=== PATIENT | male | born 1965 | race Native Hawaiian/Other Pacific Islander ===

== ENCOUNTER 2017-10-31 00:46 | Inpatient (IN) | payer MEDICAID, OTHER ==
[2017-10-31] MEDS ORDERED: Sodium Chloride 0.9% 1,000 ML IV ONE ×2 (01:37→06:01)
[2017-10-31] MEDS ORDERED: Sodium Chloride 0.9% 1,000 ML ONE (01:55)
[2017-10-31 02:01] LABS: BASO # 0.1 K/uL (0.0-0.2); BASO % 0.7 % (0.0-2.0); EOS % 0.2 % (0.0-4.0); HEMOGLOBIN 9.2 g/dL (12.0-18.0); LYMPH # 1.7 K/uL (1.0-4.3); LYMPH % 15.8 % (20.0-40.0); MEAN CORPUSCULAR HEMOGLOBIN 29.4 pg (27.0-31.0); MEAN PLATELET VOLUME 6.1 fL (7.2-11.7); MONO # 0.6 K/uL (0.0-0.8); MONO % 5.4 % (0.0-10.0); NEUT # 8.3 K/uL (1.8-7.0); NEUT % 77.9 % (50.0-75.0); RBC 3.13 Mil/uL (4.40-5.90); RED CELL DISTRIBUTION WIDTH 12.6 % (11.5-14.5); WHITE BLOOD COUNT 10.6 K/uL (4.8-10.8)
[2017-10-31 02:12] LABS: INR 1.1; PROTHROMBIN TIME 12.1 SECONDS (9.7-12.2)
--- NOTE | 2017-10-31 02:26 | C.PDOC ---
History Of Present Illness 56 y/o male presents with abdominal pain and vomiting, ongoing for 1 week. Denies any diarrhea or fever. Of note, patient sustained insect bite a few days ago. Time Seen by Provider: 10/31/17 01:30 Chief Complaint (Nursing): Abdominal Pain History Per: Patient History/Exam Limitations: no limitations Onset/Duration Of Symptoms: Days (x 1 week) Current Symptoms Are (Timing): Still Present Past Medical History Reviewed: Historical Data, Nursing Documentation, Vital Signs Vital Signs: Last Vital Signs Temp 98.6 F 10/31/17 00:57 Pulse 120 H 10/31/17 00:57 Resp 20 10/31/17 00:57 BP 109/70 10/31/17 00:57 Pulse Ox 97 10/31/17 03:24 - Medical History PMH: Diabetes Surgical History: No Surg Hx Family History: States: No Known Family Hx - Social History Hx Tobacco Use: Yes Hx Alcohol Use: No Hx Substance Use: No - Immunization History Hx Tetanus Toxoid Vaccination: No Hx Influenza Vaccination: No Hx Pneumococcal Vaccination: No Review Of Systems Except As Marked, All Systems Reviewed And Found Negative. Constitutional: Negative for: Fever Gastrointestinal: Positive for: Nausea, Vomiting, Abdominal Pain. Negative for : Diarrhea Genitourinary: Negative for: Dysuria Physical Exam - Physical Exam Appears: In Acute Distress (mild painful distress) Skin: Normal Color, Warm, Dry Head: Atraumatic, Normacephalic Eye(s): bilateral: Normal Inspection, PERRL, EOMI Oral Mucosa: Moist Neck: Normal ROM, Supple Chest: Symmetrical Cardiovascular: Rhythm Regular Respiratory: Normal Breath Sounds, No Accessory Muscle Use Gastrointestinal/Abdominal: Soft, Tenderness (to epigastrium and upper quadrants ), Other (Small laceration noted to right abdominal wall area, infected, from insect bite 3 days ago) Back: Normal Inspection, No Vertebral Tenderness Extremity: Bilateral: Atraumatic, Normal ROM Neurological/Psych: Oriented x3, Normal Speech ED Course And Treatment - Laboratory Results Result Diagrams: 10/31/17 01:55 10/31/17 01:55 ECG: Interpreted By Me, Viewed By Me ECG Rhythm: Sinus Rhythm, R BBB ECG Interpretation: No Acute Changes Interpretation Of ECG: NSR, IRBBB, No acute changes Rate From EC O2 Sat by Pulse Oximetry: 97 (RA) Pulse Ox Interpretation: Normal Medical Decision Making Medical Decision Makin:37 Ordered blood work including lipase, EKG, and chest x-ray. Patient given Protonix injection and started on IV fluids. NG tube inserted, pt aspirated coughing on NG tube Disposition Discussed With Dr.: Maurice Ahumada Doctor Will See Patient In The: Hospital Counseled Patient/Family Regarding: Diagnosis - Disposition Disposition: HOSPITALIZED Disposition Time: 03:33 Condition: STABLE Forms: [facility] (Polish) - POA Present On Arrival: None - Clinical Impression Clinical Impression: GI bleed - Scribe Statement The provider has reviewed the documentation as recorded by the Scribe (Berenice Jennings) All medical record entries made by the Scribe were at my direction and personally dictated by me. I have reviewed the chart and agree that the record accurately reflects my personal performance of the history, physical exam, medical decision making, and the department course for this patient. I have also personally directed, reviewed, and agree with the discharge instructions and disposition.
[2017-10-31 02:36] LABS: ALB/GLOB RATIO 1.1 (1.0-2.1); ALBUMIN 3.5 g/dL (3.5-5.0); ALT/SGPT 58 U/L (21-72); AST/SGOT 22 U/L (17-59); BLOOD UREA NITROGEN 16 mg/dL (9-20); CALCIUM 8.3 mg/dl (8.6-10.4); GFR AFRICAN-AMERICAN > 60; GFR NON-AFRICAN AMERICAN > 60; LIPASE 33 U/L (23-300)
--- NOTE | 2017-10-31 04:39 | CP.PCM.HP ---
<Maurice Ahumada P - Last Filed: 10/31/17 06:44> Meds Allergies/Adverse Reactions: Allergies Allergy/AdvReac Type Severity Reaction Status Date / Time No Known Allergies Allergy Verified 10/31/17 06:56 Results - Vital Signs Recent Vital Signs: Last Vital Signs Temp 98.6 F 10/31/17 00:57 Pulse 108 H 10/31/17 06:07 Resp 20 10/31/17 06:07 BP 123/80 10/31/17 06:07 Pulse Ox 97 10/31/17 06:07 - Labs Result Diagrams: 10/31/17 01:55 10/31/17 01:55 Labs: Laboratory Results - last 24 hr 10/31/17 10/31/17 10/31/17 01:55 01:55 01:55 WBC 10.6 RBC 3.13 L Hgb 9.2 L Hct 26.3 L MCV 84.0 MCH 29.4 MCHC 35.0 RDW 12.6 Plt Count 518 H MPV 6.1 L Neut % (Auto) 77.9 H Lymph % (Auto) 15.8 L Milam % (Auto) 5.4 Eos % (Auto) 0.2 Baso % (Auto) 0.7 Neut # (Auto) 8.3 H Lymph # (Auto) 1.7 Milam # (Auto) 0.6 Eos # (Auto) 0.0 Baso # (Auto) 0.1 PT 12.1 INR 1.1 APTT 35 H Sodium 136 Potassium 2.5 L* Chloride 87 L Carbon Dioxide 36 H Anion Gap 15 BUN 16 Creatinine 0.6 L Est GFR ( Amer) > 60 Est GFR (Non-Af Amer) > 60 Random Glucose 172 H Calcium 8.3 L Total Bilirubin 0.3 AST 22 ALT 58 Alkaline Phosphatase 66 Total Protein 6.5 Albumin 3.5 Globulin 3.0 Albumin/Globulin Ratio 1.1 Lipase 33 Blood Type Blood Type Confirm Antibody Screen 10/31/17 01:55 WBC RBC Hgb Hct MCV MCH MCHC RDW Plt Count MPV Neut % (Auto) Lymph % (Auto) Milam % (Auto) Eos % (Auto) Baso % (Auto) Neut # (Auto) Lymph # (Auto) Milam # (Auto) Eos # (Auto) Baso # (Auto) PT INR APTT Sodium Potassium Chloride Carbon Dioxide Anion Gap BUN Creatinine Est GFR ( Amer) Est GFR (Non-Af Amer) Random Glucose Calcium Total Bilirubin AST ALT Alkaline Phosphatase Total Protein Albumin Globulin Albumin/Globulin Ratio Lipase Blood Type A POSITIVE Blood Type Confirm A POSITIVE Antibody Screen Negative Attending/Attestation - Attestation I have personally seen and examined this patient.: Yes I have fully participated in the care of the patient.: Yes I have reviewed all pertinent clinical information: Yes Notes (Text): Assessment * UGI bleeding as vomiting and bloody diarrhea, maroon mixed with dark blood on ng, no bright red, with consistent posture related tachycardia suggesting lowered intravascular volume, patient has been using NSAIDS intermittently for back pain and skin infection * Hypokalemia will check mag, probably form poor intake, not on diuretic * Chronic back pain, T12 compression fracture * Skin infection abscess on the abdominal wall * DM on OHA Plan * PPI drip * PRVC as exam consistent with intravascular volume depletion * IV KCl replacement, check mag. * GI consult * Surg consult for I&D * Carmeno, jazzminesyn * SCD, accuchecks * ICU admit till no recurrence for 24 hrs, and volume stabilized. * See orders for detail. <Raúl Fagan S - Last Filed: 10/31/17 07:09> History of Present Illness - History of Present Illness History of Present Illness: This is a 51 year old gentleman who is presenting with c/o LUQ abdominal pain for several weeks, insect bite x3 days on his abdomen and hematemasis/ hematochezia x 1 day. He is accompanied by his son who explains that the patient has been have LUQ abdominal pain for several weeks. He saw his PMD Dr. Chairez for this and was told that it was neuropathic pain associated with his compression fracture. He did not pay any more mind to this and continued to take pain medication at home for this pain. Then three days ago he noticed an insect bite on the right side of his abdomen. The bite has been getting progressively red and painful. He has not noted any drainage. Then one day ago he began to develop fevers and chills. Subsequently the patient began to vomit gross blood and pass gross blood through the stool. A total of 4 episodes of each were reported. PMD: Dr. Chairez Pmhx: DM, compression fracture of the vertebra Psurghx: none Meds: glimeperide 2mg PO BID, metformin 1g PO bid, percocet 1T PO QID, trazodone prn insomnia, Tizanidine 2mg PO TID, gabapentin 300mg PO TID allergies: NKDA fam hx: denied social: 5 cigarettes/day x10 years, drinks sparingly, no drugs Present on Admission - Present on Admission Any Indicators Present on Admission: No Review of Systems - Constitutional Constitutional: absent: Chills, Fever - EENT Eyes: absent: Blurred Vision, Change in Vision Ears: Dizziness - Cardiovascular Cardiovascular: absent: Chest Pain, Diaphoresis, Dyspnea, Syncope - Respiratory Respiratory: absent: Cough, Dyspnea - Gastrointestinal Gastrointestinal: Hematemesis, Hematochezia, Melena, Vomiting - Genitourinary Genitourinary: absent: Dysuria - Musculoskeletal Musculoskeletal: Back Pain (hx of compression fx at t12) - Integumentary Integumentary: Other (insect bite on abdomen) - Neurological Neurological: absent: Syncope, Tingling, Vertigo, Weakness Past Patient History - Past Social History Smoking Status: Heavy Smoker > 10 Cigarettes Daily - ENDOCRINE/METABOLIC Hx Diabetes Mellitus Type 2: Yes - PSYCHIATRIC Hx Substance Use: No - SURGICAL HISTORY Hx Surgeries: No - ANESTHESIA Hx Anesthesia: No Physical Exam - Head Exam Head Exam: ATRAUMATIC, NORMOCEPHALIC - Eye Exam Eye Exam: EOMI, PERRL - ENT Exam ENT Exam: Mucous Membranes Moist - Respiratory Exam Respiratory Exam: Clear to Auscultation Bilateral, NORMAL BREATHING PATTERN. absent: Rales, Rhonchi, Wheezes - Cardiovascular Exam Cardiovascular Exam: +S1, +S2 - GI/Abdominal Exam GI & Abdominal Exam: Normal Bowel Sounds, Soft, Tenderness (tender only on right near skin lesion). absent: Guarding - Extremities Exam Extremities exam: Positive for: calf tenderness. Negative for: pedal edema - Neurological Exam Neurological exam: Alert, Oriented x3 - Psychiatric Exam Psychiatric exam: Normal Affect, Normal Mood - Skin Skin Exam: Dry, Warm Results - Vital Signs Recent Vital Signs: Last Vital Signs Temp 98.6 F 10/31/17 00:57 Pulse 120 H 10/31/17 00:57 Resp 20 10/31/17 00:57 BP 109/70 10/31/17 00:57 Pulse Ox 97 10/31/17 03:34 - Labs Result Diagrams: 10/31/17 01:55 10/31/17 01:55 Labs: Laboratory Results - last 24 hr 10/31/17 10/31/17 10/31/17 01:55 01:55 01:55 WBC 10.6 RBC 3.13 L Hgb 9.2 L Hct 26.3 L MCV 84.0 MCH 29.4 MCHC 35.0 RDW 12.6 Plt Count 518 H MPV 6.1 L Neut % (Auto) 77.9 H Lymph % (Auto) 15.8 L Milam % (Auto) 5.4 Eos % (Auto) 0.2 Baso % (Auto) 0.7 Neut # (Auto) 8.3 H Lymph # (Auto) 1.7 Milam # (Auto) 0.6 Eos # (Auto) 0.0 Baso # (Auto) 0.1 PT 12.1 INR 1.1 APTT 35 H Sodium 136 Potassium 2.5 L* Chloride 87 L Carbon Dioxide 36 H Anion Gap 15 BUN 16 Creatinine 0.6 L Est GFR ( Amer) > 60 Est GFR (Non-Af Amer) > 60 Random Glucose 172 H Calcium 8.3 L Total Bilirubin 0.3 AST 22 ALT 58 Alkaline Phosphatase 66 Total Protein 6.5 Albumin 3.5 Globulin 3.0 Albumin/Globulin Ratio 1.1 Lipase 33 Blood Type Blood Type Confirm Antibody Screen 10/31/17 01:55 WBC RBC Hgb Hct MCV MCH MCHC RDW Plt Count MPV Neut % (Auto) Lymph % (Auto) Milam % (Auto) Eos % (Auto) Baso % (Auto) Neut # (Auto) Lymph # (Auto) Milam # (Auto) Eos # (Auto) Baso # (Auto) PT INR APTT Sodium Potassium Chloride Carbon Dioxide Anion Gap BUN Creatinine Est GFR ( Amer) Est GFR (Non-Af Amer) Random Glucose Calcium Total Bilirubin AST ALT Alkaline Phosphatase Total Protein Albumin Globulin Albumin/Globulin Ratio Lipase Blood Type A POSITIVE Blood Type Confirm A POSITIVE Antibody Screen Negative Assessment & Plan - Assessment and Plan (Free Text) Plan: GIB Admission to ICU NGT placed in ED- maintain however keep suction off GI consult placed to Dr. Maricruz Knapp 1 unit PRBC Protonix ggt NS bolus Hypokalemia 2.5 on admission repleted follow up labs- replete as needed follow up mg Cellulitis with possible abscess Start vancomycin 1g IV q12 Start zosyn 3.375g IV q6hrs Surgery consult placed to Dr. Tai Diabetes Monitor finger sticks ACHS Start ISS if appropriate Hx of T12 compression fx Take oxycodon at home- assess need for pain medications prn PPX SCD Case discussed with Dr. Ahumada. Patient was discussed with ICU attending and accepted. Raúl Fagan D.O.
[2017-10-31] MEDS ORDERED: Piperacill/Tazo 2.25gm in Dex 2.25 GM/50 ML BAG IVPB SCH (06:15)
[2017-10-31] MEDS: Pantoprazole 80 MG in Sodium Chloride 0.9% 100 ML IVP SCH ×2 (06:38→15:30)
--- NOTE | 2017-10-31 07:52 | CP.PCM.PN ---
Subjective - Date & Time of Evaluation Date of Evaluation: 10/31/17 Time of Evaluation: 07:30 - Subjective Subjective: General surgery consult note for Dr. Remigio Maloney, PGY-1 Pt S & E at bedside. 51M w/PMH sig for DM consulted for right abdominal wall abscess x 3 days. Pt states that he got an insect bite that became progressively red/painful. No drainage. Admits to fevers, chills, hemetemesis, hematochezia. Originally admitted for GI bleed. PMH: DM, compression fxr of vertebra PSH: None All: NKDA SH: Admits to tobacco use 5 cigarettes daily x 10 yrs, rare ETOH use, denies illicit drugs. Objective - Vital Signs/Intake and Output Vital Signs (last 24 hours): Temp Pulse Resp BP Pulse Ox 98.2 F 105 H 18 125/74 99 10/31/17 06:43 10/31/17 06:43 10/31/17 06:43 10/31/17 06:43 10/31/17 06:43 - Medications Medications: Current Medications Sodium Chloride (Sodium Chloride 0.9%) 1,000 mls @ 100 mls/hr IV .Q10H ONE Stop: 10/31/17 11:36 Last Admin: 10/31/17 01:58 Dose: 100 mls/hr Pantoprazole Sodium 80 mg/ (Sodium Chloride) 100 mls @ 10 mls/hr IVP .Q10H DAVEY PRN Reason: 8 MG/HR Last Admin: 10/31/17 06:38 Dose: 10 mls/hr Potassium Chloride (Potassium Chloride 20 Meq/100 Ml) 20 meq in 100 mls @ 50 mls/hr IVPB ONCE ONE Stop: 10/31/17 08:01 Last Admin: 10/31/17 06:40 Dose: 50 mls/hr Vancomycin/Sodium Chloride (Vancomycin 1 Gm/Ns 200 Ml) 1 gm in 200 mls @ 166.7 mls/hr IVPB Q24H [facility] Stop: 11/05/17 07:01 Piperacillin Sod/Tazobactam Sod (Zosyn 3.375 Gm Iv Premix) 3.375 gm in 50 mls @ 100 mls/hr IVPB Q6H DAVEY - Labs Labs: 10/31/17 01:55 02/09/18 01:55 PT 12.1 SECONDS (9.7-12.2) 10/31/17 01:55 INR 1.1 10/31/17 01:55 APTT 35 SECONDS (21-34) H 10/31/17 01:55 - Constitutional Appears: Non-toxic, No Acute Distress - Head Exam Head Exam: ATRAUMATIC, NORMAL INSPECTION, NORMOCEPHALIC - Eye Exam Eye Exam: EOMI, Normal appearance - ENT Exam ENT Exam: Mucous Membranes Moist, Normal Exam - Neck Exam Neck Exam: Full ROM, Normal Inspection - Respiratory Exam Respiratory Exam: NORMAL BREATHING PATTERN - Cardiovascular Exam Cardiovascular Exam: Tachycardia, +S1, +S2 - GI/Abdominal Exam GI & Abdominal Exam: Soft, Tenderness (right abdominal wall). absent: Distended , Firm Additional comments: Right abdominal wall with erythematous lesion, approximately 3 x 4 cm, fluctuance at central aspect, induration, calor, tenderness - Extremities Exam Extremities Exam: Normal Inspection. absent: Pedal Edema - Neurological Exam Neurological Exam: Alert, Awake, CN II-XII Intact, Oriented x3 - Psychiatric Exam Psychiatric exam: Normal Affect, Normal Mood - Skin Skin Exam: Erythema (Right abdominal wall), Intact, Normal Color (excluding right abdominal wall abscess), Warm Assessment and Plan - Assessment and Plan (Free Text) Assessment: 51M w/abscess of Right abdominal wall Plan: ABx Pain control Warm compresses Plan to do bedside I & D Will obtain consent Further mgmt as per primary and ICU teams CASSI attending Amara, PGY-1
[2017-10-31] MEDS: Vancomycin 1 gm/NS 200 ml 1 GM/200 ML BAG IVPB SCH (08:00)
[2017-10-31] MEDS ORDERED: Potassium Chloride 20 mEq ER Tab PO SCH (08:30)
[2017-10-31] MEDS: Piperacill/Tazo 3.375gm in Dex 3.375 GM/50 ML BAG IVPB SCH ×3 (08:48→19:37)
[2017-10-31] MEDS ORDERED: Lidocaine 2% w Epi 1:100,000 Inj IJ ONE (09:00)
[2017-10-31] MEDS ORDERED: Lidocaine 1%/Epinephrine 1:100000 30 ml vial IJ ONE (09:00)
--- NOTE | 2017-10-31 09:06 | CP.PCM.CON ---
Addendum entered and electronically signed by Denzel Ivan DO 10/31/17 13:16 : Given hemoglobin on 6.7 on most recent CBC following IVF resuscitation, ongoing coffee ground fluid from NGT and history of hematemesis, hematochezia will perform emergent EGD at bedside in ICU shortly. Potassium repletion has been ongoing with patient receiving 60mEq thus far and another bag being hung presently. 1 unit PRBC being hung at this time. 2 units to be put on hold. Original Note: <Denzel Ivan - Last Filed: 10/31/17 09:07> History of Present Illness - History of Present Illness History of Present Illness: PGY5 GI Fellow Consult Note Patient is a 51yo [place] male with PMHx significant for DM, T12 compression fracture who presented to the ED last night with abdominal pain, nausea and vomiting. [employer] airplane tester [id number] assisted with translation. The patient has has gnawing epigastric abdominal pain for several years which he believed to be secondary to a spinal compression fracture which was diagnosed in 2015. He has had epidural spinal injections and more recently was taking prescription Percocet and OTC Tylenol to treat symptoms without much relief. Symptoms intensified over the past several weeks with pain becomming severe last night at around 9PM. At 10PM he developed nausea and vomited a cup of dark black emesis. He had two more similar episodes, developed bloody diarrhea and became dizzy which prompted his son to bring him to the hospital for further evaluation. In the ER, the patient had an NGT placed which was lavaged, producing dark coffee ground material. He has since been admitted to the ICU, with order for 1 unit PRBC transfusion pending and he was started on a Protonix gtt. Continues to complain of epigastric pain, though improved from prior. Separately, 4 days prior to admission he was bitten by an insect on the RLQ of his abdomen. He developed intense pruritus and notes that this area has become swollen, warm and erythematous over the subsequent days. He denies any fever, chills, purulent drainage. He has not traveled recently or used any antibiotics to treat this area. PMHx: See HPI PSHx: Discussed with patient and he denies any surgical history FHx: Discussed with patient and he denies any family history Social: +tobacco use 10+ years, social EtOH use (~every two weeks) Endo: No prior endoscopic evaluations PMD: Dr. Pelon Chairez 12 system ROS performed and negative except where stated above Past Patient History - Past Social History Smoking Status: Heavy Smoker > 10 Cigarettes Daily - ENDOCRINE/METABOLIC Hx Diabetes Mellitus Type 2: Yes - PSYCHIATRIC Hx Substance Use: No - SURGICAL HISTORY Hx Surgeries: No - ANESTHESIA Hx Anesthesia: No Meds Allergies/Adverse Reactions: Allergies Allergy/AdvReac Type Severity Reaction Status Date / Time No Known Allergies Allergy Verified 10/31/17 06:56 - Medications Medications: Current Medications Sodium Chloride (Sodium Chloride 0.9%) 1,000 mls @ 100 mls/hr IV .Q10H ONE Stop: 10/31/17 11:36 Last Admin: 10/31/17 01:58 Dose: 100 mls/hr Pantoprazole Sodium 80 mg/ (Sodium Chloride) 100 mls @ 10 mls/hr IVP .Q10H [facility] PRN Reason: 8 MG/HR Last Admin: 10/31/17 06:38 Dose: 10 mls/hr Vancomycin/Sodium Chloride (Vancomycin 1 Gm/Ns 200 Ml) 1 gm in 200 mls @ 166.7 mls/hr IVPB Q24H [facility] Stop: 11/05/17 07:01 Last Admin: 10/31/17 08:00 Dose: 166.7 mls/hr Piperacillin Sod/Tazobactam Sod (Zosyn 3.375 Gm Iv Premix) 3.375 gm in 50 mls @ 100 mls/hr IVPB Q6H [facility] Last Admin: 10/31/17 08:48 Dose: 100 mls/hr Acetaminophen (Ofirmev) 100 mls @ 100 mls/hr IV Q8H PRN PRN Reason: Pain, moderate (4-7) Stop: 11/01/17 09:01 Potassium Chloride (Potassium Chloride 20 Meq/100 Ml) 20 meq in 100 mls @ 100 mls/hr IVPB Q1H [facility] Stop: 10/31/17 09:59 Calcium Gluconate 2,000 mg/ (Sodium Chloride) 270 mls @ 67.5 mls/hr IVPB ONCE ONE PRN Reason: Per Protocol Stop: 10/31/17 13:59 Potassium Chloride (K-Dur 20 Meq Er Tab) 40 meq PO Q4H [facility] Stop: 02/09/18 12:31 Last Admin: 10/31/17 08:43 Dose: Not Given Physical Exam - Constitutional Appears: Non-toxic, No Acute Distress - Eye Exam Eye Exam: EOMI, PERRL - ENT Exam ENT Exam: Mucous Membranes Dry Additional comments: NGT in place, clamped with dark black gastric fluid inside tube - Respiratory Exam Respiratory Exam: Clear to Auscultation Bilateral. absent: Rales, Rhonchi, Wheezes - Cardiovascular Exam Cardiovascular Exam: Tachycardia, REGULAR RHYTHM, +S1, +S2 - GI/Abdominal Exam GI & Abdominal Exam: Normal Bowel Sounds, Soft, Tenderness (epigastric, LUQ). absent: Distended, Firm, Guarding, Rigid - Rectal Exam Rectal Exam: absent: Black Stool, Bloody Stool Additional comments: brown stool, small internal hemorrhoid, no external hemorrhoids - Extremities Exam Extremities exam: Positive for: normal inspection. Negative for: pedal edema - Neurological Exam Neurological exam: Alert, Oriented x3 - Psychiatric Exam Psychiatric exam: Normal Affect, Normal Mood - Skin Skin Exam: Dry, Warm Additional comments: 1.5inch cellulitic lesion in the RLQ, warm to touch with erythematous border; no drainage noted Results - Vital Signs Recent Vital Signs: Last Vital Signs Temp 98.2 F 10/31/17 06:43 Pulse 105 H 10/31/17 06:43 Resp 18 10/31/17 06:43 BP 125/74 10/31/17 06:43 Pulse Ox 99 10/31/17 06:43 - Labs Result Diagrams: 10/31/17 01:55 10/31/17 01:55 Labs: Laboratory Results - last 24 hr 10/31/17 10/31/17 10/31/17 01:55 01:55 01:55 WBC 10.6 RBC 3.13 L Hgb 9.2 L Hct 26.3 L MCV 84.0 MCH 29.4 MCHC 35.0 RDW 12.6 Plt Count 518 H MPV 6.1 L Neut % (Auto) 77.9 H Lymph % (Auto) 15.8 L Galax % (Auto) 5.4 Eos % (Auto) 0.2 Baso % (Auto) 0.7 Neut # (Auto) 8.3 H Lymph # (Auto) 1.7 [place] # (Auto) 0.6 Eos # (Auto) 0.0 Baso # (Auto) 0.1 PT 12.1 INR 1.1 APTT 35 H Sodium 136 Potassium 2.5 L* Chloride 87 L Carbon Dioxide 36 H Anion Gap 15 BUN 16 Creatinine 0.6 L Est GFR ( Amer) > 60 Est GFR (Non-Af Amer) > 60 Random Glucose 172 H Calcium 8.3 L Total Bilirubin 0.3 AST 22 ALT 58 Alkaline Phosphatase 66 Total Protein 6.5 Albumin 3.5 Globulin 3.0 Albumin/Globulin Ratio 1.1 Lipase 33 Blood Type Blood Type Confirm Antibody Screen 10/31/17 01:55 WBC RBC Hgb Hct MCV MCH MCHC RDW Plt Count MPV Neut % (Auto) Lymph % (Auto) Galax % (Auto) Eos % (Auto) Baso % (Auto) Neut # (Auto) Lymph # (Auto) Galax # (Auto) Eos # (Auto) Baso # (Auto) PT INR APTT Sodium Potassium Chloride Carbon Dioxide Anion Gap BUN Creatinine Est GFR ( Amer) Est GFR (Non-Af Amer) Random Glucose Calcium Total Bilirubin AST ALT Alkaline Phosphatase Total Protein Albumin Globulin Albumin/Globulin Ratio Lipase Blood Type A POSITIVE Blood Type Confirm A POSITIVE Antibody Screen Negative Assessment & Plan - Assessment and Plan (Free Text) Assessment: Patient is a 51yo [place] male with PMHx significant for DM, T12 compression fracture who presented to the ED last night with abdominal pain, nausea and vomiting. -Hematemesis -Anemia, suspect acute blood loss anemia -Cellulitis 2/2 insect bite on RLQ of abdomen -Hypokalemia -DM -T12 compression fracture Plan: -Maintain NPO -IVF resuscitation ongoing - currently NS@100cc/hr, s/p 2L IV bolus -Protonix gtt as ordered -Patient has adequate IV access -2 units PRBCs on hold, 1 unit transfusion pending -Unknown HGB baseline - attempted to reach patient's PCP to discuss but currently unavailable -Plan for EGD today - R/O ongoing UGIB, PUD, vascular lesion, malignancy; plan per findings -Surgery consulted for local care to cellulitic lesion - plan for I&D -Continue broad spectrum coverage for cellulitic lesion - Vancomycin and Zosyn -IV potassium running for hypokalemia -Patient is a known diabetic, would consider addition of hyperglycemic coverage - Date & Time Date: 10/31/17 Time: 07:30 <Honey Estrada MD - Last Filed: 10/31/17 21:06> Meds - Medications Medications: Current Medications Dextrose (Dextrose 50%) 0 ml IV STAT PRN; Protocol PRN Reason: Hypoglycemia Protocol Dextrose (Glutose 15) 0 gm PO ONCE PRN; Protocol PRN Reason: Hypoglycemia Protocol Docusate Sodium (Colace) 100 mg PO BID PRN PRN Reason: Constipation Glucagon (Glucagen Diagnostic Kit) 0 mg IM STAT PRN; Protocol PRN Reason: Hypoglycemia Protocol Pantoprazole Sodium 80 mg/ (Sodium Chloride) 100 mls @ 10 mls/hr IVP .Q10H [facility] PRN Reason: 8 MG/HR Last Admin: 10/31/17 15:30 Dose: 10 mls/hr Vancomycin/Sodium Chloride (Vancomycin 1 Gm/Ns 200 Ml) 1 gm in 200 mls @ 166.7 mls/hr IVPB Q24H [facility] Stop: 11/05/17 07:01 Last Admin: 10/31/17 08:00 Dose: 166.7 mls/hr Piperacillin Sod/Tazobactam Sod (Zosyn 3.375 Gm Iv Premix) 3.375 gm in 50 mls @ 100 mls/hr IVPB Q6H [facility] Last Admin: 10/31/17 19:37 Dose: 100 mls/hr Acetaminophen (Ofirmev) 100 mls @ 100 mls/hr IV Q8H PRN PRN Reason: Pain, moderate (4-7) Stop: 11/01/17 09:01 Dextrose (Dextrose 5% In Water 1000 Ml) 1,000 mls @ 0 mls/hr IV .Q0M PRN; Protocol; Per Protocol PRN Reason: Hypoglycemia Protocol Dextrose/Sodium Chloride (Dextrose 5%/0.9% Ns 1000 Ml) 1,000 mls @ 100 mls/hr IV .Q10H [facility] Last Admin: 10/31/17 17:00 Dose: 100 mls/hr Midazolam HCl 100 mg/ Dextrose 100 mls @ 1.17 mls/hr IV .Q24H [facility]; 0.02 MG/KG/ HR PRN Reason: Protocol Last Titration: 10/31/17 18:10 Dose: 0.08 mg/kg/hr, 5 mls/hr Fentanyl Citrate 2,500 mcg/ (Sodium Chloride) 250 mls @ 11.79 mls/hr IV .[id number] [facility]; 2 MCG/KG/HR PRN Reason: Protocol Last Admin: 10/31/17 19:15 Dose: 2 mcg/kg/hr, 11.79 mls/hr Insulin Human Regular (Novolin R) 0 unit SC Q6H [facility] PRN Reason: Protocol Last Admin: 10/31/17 18:12 Dose: Not Given Morphine Sulfate (Morphine) 2 mg IVP Q6H PRN PRN Reason: Pain, severe (8-10) Morphine Sulfate (Morphine) 1 mg IVP Q6H PRN PRN Reason: Pain, moderate (4-7) Saccharomyces Boulardii (Florastor) 250 mg PO BID [facility] Last Admin: 10/31/17 19:17 Dose: Not Given Results - Vital Signs Recent Vital Signs: Last Vital Signs Temp 98.3 F 10/31/17 13:36 Pulse 90 10/31/17 13:51 Resp 12 10/31/17 13:51 BP 102/68 10/31/17 13:51 Pulse Ox 100 10/31/17 13:51 - Labs Result Diagrams: 10/31/17 18:31 10/31/17 13:10 Labs: Laboratory Results - last 24 hr 10/31/17 10/31/17 10/31/17 01:55 01:55 01:55 WBC 10.6 RBC 3.13 L Hgb 9.2 L Hct 26.3 L MCV 84.0 MCH 29.4 MCHC 35.0 RDW 12.6 Plt Count 518 H MPV 6.1 L Neut % (Auto) 77.9 H Lymph % (Auto) 15.8 L Galax % (Auto) 5.4 Eos % (Auto) 0.2 Baso % (Auto) 0.7 Neut # (Auto) 8.3 H Lymph # (Auto) 1.7 [place]ax # (Auto) 0.6 Eos # (Auto) 0.0 Baso # (Auto) 0.1 PT 12.1 INR 1.1 APTT 35 H Sodium 136 Potassium 2.5 L* Chloride 87 L Carbon Dioxide 36 H Anion Gap 15 BUN 16 Creatinine 0.6 L Est GFR ( Amer) > 60 Est GFR (Non-Af Amer) > 60 POC Glucose (mg/dL) Random Glucose 172 H Calcium 8.3 L Phosphorus 3.1 Magnesium 1.6 Total Bilirubin 0.3 AST 22 ALT 58 Alkaline Phosphatase 66 Total Protein 6.5 Albumin 3.5 Globulin 3.0 Albumin/Globulin Ratio 1.1 Lipase 33 Blood Type Blood Type Confirm Antibody Screen 10/31/17 10/31/17 10/31/17 01:55 11:19 11:19 WBC 14.2 H RBC 2.23 L Hgb 6.7 L D Hct 19.1 L MCV 85.3 MCH 29.8 MCHC 35.0 RDW 12.8 Plt Count 506 H MPV 6.4 L Neut % (Auto) 73.4 Lymph % (Auto) 17.7 L Galax % (Auto) 8.4 Eos % (Auto) 0.2 Baso % (Auto) 0.3 Neut # (Auto) 10.5 H Lymph # (Auto) 2.5 [place] # (Auto) 1.2 H Eos # (Auto) 0.0 Baso # (Auto) 0.0 PT INR APTT Sodium 134 Potassium 2.7 L Chloride 96 L Carbon Dioxide 29 Anion Gap 11 BUN 19 Creatinine 0.5 L Est GFR ( Amer) > 60 Est GFR (Non-Af Amer) > 60 POC Glucose (mg/dL) Random Glucose 185 H Calcium 7.1 L Phosphorus 2.3 L Magnesium 1.5 L Total Bilirubin 0.2 AST 22 ALT 47 Alkaline Phosphatase 54 Total Protein 5.4 L Albumin 2.9 L Globulin 2.5 Albumin/Globulin Ratio 1.1 Lipase Blood Type A POSITIVE Blood Type Confirm A POSITIVE Antibody Screen Negative 10/31/17 10/31/17 10/31/17 11:41 13:10 18:31 WBC 13.6 H RBC 2.90 L Hgb 8.5 L Hct 24.4 L MCV 84.2 MCH 29.5 MCHC 35.0 RDW 14.7 H Plt Count 442 H MPV 6.0 L Neut % (Auto) 73.4 Lymph % (Auto) 17.9 L Galax % (Auto) 8.4 Eos % (Auto) 0.0 Baso % (Auto) 0.3 Neut # (Auto) 9.9 H Lymph # (Auto) 2.4 [place] # (Auto) 1.1 H Eos # (Auto) 0.0 Baso # (Auto) 0.0 PT INR APTT Sodium Potassium 3.7 Chloride Carbon Dioxide Anion Gap BUN Creatinine Est GFR ( Amer) Est GFR (Non-Af Amer) POC Glucose (mg/dL) 209 H Random Glucose Calcium Phosphorus Magnesium Total Bilirubin AST ALT Alkaline Phosphatase Total Protein Albumin Globulin Albumin/Globulin Ratio Lipase Blood Type Blood Type Confirm Antibody Screen Attending/Attestation - Attestation I have personally seen and examined this patient.: Yes I have fully participated in the care of the patient.: Yes I have reviewed all pertinent clinical information: Yes Notes (Text): 10/31/17 20:48 Patient seen at bedside in MICU earlier today. In a nutshell this is a 51 yr old [place] male with PMHx significant for DM, T12 compression fracture who presented to the ED last night with abdominal pain, nausea and hematemesis. Drop in Hb mandated urgent EGD. It was prudent to intubate patient. Post EGD findings were (please see chart for detailed report)- Duodenal bulb large cratered necrotic ulcer circumfernetial with large adherent clot and visible vessel. Epinephrine was placed around the clot with clips. There was hematin and large amoutn of blood in the entire stomach which suctioned and clots removed with roberts net. Hemostasis was achieved but high risk for recurrent bleed. Ulcer biopsies taken to rule out carcinoma. * Discussed with IR to embolize GDA * Central line and cbc q 8 hours * Keep Hct above 21 * Continue PPI gtt * Surgical consult for cratered duodenal bulb ulcer- high risk for perforation * One dose of 10 mg reglan IV given to increase peristalsis and clot passage * NPO * Close monitoring * Supplement electrolytes * No s/s of cirrhosis or portal HTN Will follow closely . Above discussed with Machine Installer and IR
[2017-10-31 09:16] LABS: MAGNESIUM 1.6 mg/dL (1.6-2.3)
[2017-10-31] MEDS ORDERED: Glucagon Recombinant 1 mg Inj IM PRN (09:40)
[2017-10-31] MEDS ORDERED: Dextrose 50% VIAL Inj (50 ml) IV PRN (09:40)
[2017-10-31] MEDS ORDERED: (Novolin R) Insulin Human Regular 100 units/ml vial SC SCH (09:45)
[2017-10-31] MEDS: Saccharomyces Boulardi 250 mg Cap PO SCH ×2 (10:00→19:17)
[2017-10-31] MEDS ORDERED: Saccharomyces Boulardi 250 mg Cap PO SCH (10:00)
--- NOTE | 2017-10-31 10:14 | CP.PCM.PN ---
Subjective - Date & Time of Evaluation Date of Evaluation: 10/31/17 Time of Evaluation: 09:30 - Subjective Subjective: Hospitalist Progress Note Patient was seen and examined at 9:30 AM ICU Bed #2 10/31/17 with the assistance of [employer] Nepali Interpretor Shannon Carr [phone]. 51 year old male who was admitted on 10/30/17 with complaints of epigastric pain ( which has been going on for may years which he attributed to his history of vertebral compression fracture in 2016 for which he takes percocet at home) that has worsened over the past 3 days. This was followed by multiple bouts of hematemesis and hematochezia. He was admitted to ICU for further treatment and evaluation of acute blood loss anemia likely secondary to upper GI source. Currently upon FULL ROS Complains of epigastric pain which is better than when he came in NO N/V (has NGT tube in place producing dark black material) Mid Back pain (chronic in nature): would like some pain medication as he states that it is worse right now and preventing him from laying flat or still and made a bit better by laying on his side. NO chest pain NO SOB NO other complaints Exam: General: AAOx3, Patient appears to be very uncomfortable and points to his mid thoracic back region HEENT: EOMI, PERRLA, Mucous membranes are dry, NO cervical lymphadenopathy, NO thyromegaly, Pharynx without erythema/exudate, Nasal turbinates are nonerythematous and dry Cardio: NS1 and NS2, NO M/R/G, Tachycardic Resp: CTA B/L, NO R/R/W GI: BS are reduced in all 4 quadrants, Tenderness to palpation in upper epigrastric area without rebound/with slight guarding, Liver and Spleen not palpated at this time Ext: Pulses are strong and equal, Capillary Refill is 2 seconds, NO edema Neuro: CN II through XII are grossly intact Skin: In the RLQ Abdomen there is an irregularly shaped eschar measuring 3.5 cm by 2 cm raised on a bed of erythema measuring 6 cm by 3 cm. Surrounding the eschar is hardness. Slightly tender to palpation. NO drainage noted. Assessment and Plan: 1). Acute Blood Loss Anemia Likely Secondary to Upper GI Bleed Protonix 8 mg/hr NGT NPO GI Dr. Estrada to perform Upper Endoscopy at 1 PM today Transfused 1 unit PRBC since admission 2). Right Abdominal Wall Cellulitis/Abscess Stated that he had a masquite bite roughly 3 days ago and then since that time area got bigger and redder and painful Vancomycin 1 gm IV 1x/day Zosyn 3.375 gm IV Q6H Surgery Ara's Team to perform bedside I&D and consent obtained along with Box Toe Cementer Dr. Maloney 3). Hypokalemia KCl 40 mEQ PO x 1 dose KCl 20 mEQ IV x 2 doses 4). Hx Vertebral Fracture 2015 Morphine 1 gm IV Q6H PRN Moderate Pain Morphine 2 gm IV Q6H PRN Severe Pain Patient very uncomfortable upon exam and pain is likely contributing to the the tachycardia (along with the anemia) Colace 100 mg PO 2x/day PRN if NO bowel movement in 2 days from the Morphine 5). Hx DM 2 On Metformin at home which will be held at this time RISS Q6H with Accuchecks for now as he is NPO F/U HgBA1C, TSH, T4, Lipid Panel 6). Prophylaxis Protonix 8 mg/hr NO anticoagulation considering suspected Upper GI Bleed Florastor 250 mg PO 2x/day Colace 100 mg PO 2x/day as patient was placed on Morphine NPO Objective - Vital Signs/Intake and Output Vital Signs (last 24 hours): Temp Pulse Resp BP Pulse Ox 98.2 F 105 H 18 125/74 99 10/31/17 06:43 10/31/17 06:43 10/31/17 06:43 10/31/17 06:43 10/31/17 06:43 - Medications Medications: Current Medications Dextrose (Dextrose 50%) 0 ml IV STAT PRN; Protocol PRN Reason: Hypoglycemia Protocol Dextrose (Glutose 15) 0 gm PO ONCE PRN; Protocol PRN Reason: Hypoglycemia Protocol Glucagon (Glucagen Diagnostic Kit) 0 mg IM STAT PRN; Protocol PRN Reason: Hypoglycemia Protocol Sodium Chloride (Sodium Chloride 0.9%) 1,000 mls @ 100 mls/hr IV .Q10H ONE Stop: 10/31/17 11:36 Last Admin: 10/31/17 01:58 Dose: 100 mls/hr Pantoprazole Sodium 80 mg/ (Sodium Chloride) 100 mls @ 10 mls/hr IVP .Q10H [facility] PRN Reason: 8 MG/HR Last Admin: 10/31/17 06:38 Dose: 10 mls/hr Vancomycin/Sodium Chloride (Vancomycin 1 Gm/Ns 200 Ml) 1 gm in 200 mls @ 166.7 mls/hr IVPB Q24H [facility] Stop: 11/05/17 07:01 Last Admin: 10/31/17 08:00 Dose: 166.7 mls/hr Piperacillin Sod/Tazobactam Sod (Zosyn 3.375 Gm Iv Premix) 3.375 gm in 50 mls @ 100 mls/hr IVPB Q6H [facility] Last Admin: 10/31/17 08:48 Dose: 100 mls/hr Acetaminophen (Ofirmev) 100 mls @ 100 mls/hr IV Q8H PRN PRN Reason: Pain, moderate (4-7) Stop: 11/01/17 09:01 Calcium Gluconate 2,000 mg/ (Sodium Chloride) 270 mls @ 67.5 mls/hr IVPB ONCE ONE PRN Reason: Per Protocol Stop: 10/31/17 13:59 Dextrose (Dextrose 5% In Water 1000 Ml) 1,000 mls @ 0 mls/hr IV .Q0M PRN; Protocol; Per Protocol PRN Reason: Hypoglycemia Protocol Insulin Human Regular (Novolin R) 0 unit SC Q6H [facility] PRN Reason: Protocol Morphine Sulfate (Morphine) 1 mg IVP STAT STA Stop: 10/31/17 09:56 Morphine Sulfate (Morphine) 2 mg IVP Q6H PRN PRN Reason: Pain, severe (8-10) Morphine Sulfate (Morphine) 1 mg IVP Q6H PRN PRN Reason: Pain, moderate (4-7) Potassium Chloride (K-Dur 20 Meq Er Tab) 40 meq PO Q4H [facility] Stop: 10/31/17 12:31 Last Admin: 10/31/17 08:43 Dose: Not Given Saccharomyces Boulardii (Florastor) 250 mg PO BID [facility] - Labs Labs: 10/31/17 01:55 10/31/17 01:55 PT 12.1 SECONDS (9.7-12.2) 10/31/17 01:55 INR 1.1 10/31/17 01:55 APTT 35 SECONDS (21-34) H 10/31/17 01:55
--- NOTE | 2017-10-31 10:36 | RAD ---
HISTORY: abd pain COMPARISON: None available. TECHNIQUE: Chest, one view. FINDINGS: Examination limited by habitus and hypoinflation. LUNGS: Linear atelectasis, left lung base. No focal consolidation. Please note that chest x-ray has limited sensitivity for the detection of pulmonary masses. PLEURA: No significant pleural effusion identified. No definite pneumothorax . CARDIOVASCULAR: Heart size appears within normal limits. OSSEOUS STRUCTURES: Degenerative changes of the spine and shoulders. Acromioclavicular arthropathy. VISUALIZED UPPER ABDOMEN: Unremarkable. OTHER FINDINGS: None. IMPRESSION: Linear atelectasis, left lung base.
[2017-10-31] MEDS: Potassium Chloride 20 mEq ER Tab PO SCH ×2 (11:25→15:15)
[2017-10-31 11:38] LABS: BASO % 0.3 % (0.0-2.0); EOS % 0.2 % (0.0-4.0); LYMPH # 2.5 K/uL (1.0-4.3); LYMPH % 17.7 % (20.0-40.0); MEAN CELL VOLUME 85.3 fL (80.0-94.0); MEAN CORPUSCULAR HEMOGLOBIN 29.8 pg (27.0-31.0); MEAN PLATELET VOLUME 6.4 fL (7.2-11.7); MONO # 1.2 K/uL (0.0-0.8); MONO % 8.4 % (0.0-10.0); NEUT # 10.5 K/uL (1.8-7.0); NEUT % 73.4 % (50.0-75.0); RBC 2.23 Mil/uL (4.40-5.90); RED CELL DISTRIBUTION WIDTH 12.8 % (11.5-14.5); WHITE BLOOD COUNT 14.2 K/uL (4.8-10.8)
[2017-10-31 11:57] LABS: HEMOGLOBIN 6.7 g/dL (12.0-18.0)
[2017-10-31 11:59] LABS: ALB/GLOB RATIO 1.1 (1.0-2.1); ALBUMIN 2.9 g/dL (3.5-5.0); ALT/SGPT 47 U/L (21-72); AST/SGOT 22 U/L (17-59); BLOOD UREA NITROGEN 19 mg/dL (9-20); CALCIUM 7.1 mg/dl (8.6-10.4); GFR AFRICAN-AMERICAN > 60; GFR NON-AFRICAN AMERICAN > 60; MAGNESIUM 1.5 mg/dL (1.6-2.3)
[2017-10-31] MEDS: (Novolin R) Insulin Human Regular 100 units/ml vial SC SCH ×2 (12:01→18:12)
--- NOTE | 2017-10-31 12:37 | CP.PCM.CON ---
<Pelon Diaz - Last Filed: 10/31/17 12:38> History of Present Illness - History of Present Illness History of Present Illness: CCU Consult HPI: This is a 51 year old gentleman who is presenting with c/o LUQ abdominal pain for several weeks, insect bite x3 days on his abdomen and hematemasis/ hematochezia x 1 day. He is accompanied by his son who explains that the patient has been have LUQ abdominal pain for several weeks. He saw his PMD Dr. Chairez for this and was told that it was neuropathic pain associated with his compression fracture. He did not pay any more mind to this and continued to take pain medication at home for this pain. Then three days ago he noticed an insect bite on the right side of his abdomen. The bite has been getting progressively red and painful. He has not noted any drainage. Then one day ago he began to develop fevers and chills. Subsequently the patient began to vomit gross blood and pass gross blood through the stool. A total of 4 episodes of each were reported. PMD: Dr. Chairez Pmhx: DM, compression fracture of the vertebra Psurghx: none Meds: glimeperide 2mg PO BID, metformin 1g PO bid, percocet 1T PO QID, trazodone prn insomnia, Tizanidine 2mg PO TID, gabapentin 300mg PO TID allergies: NKDA fam hx: denied social: 5 cigarettes/day x10 years, drinks sparingly, no drugs Review of Systems - Review of Systems Review of Systems: per HPI Past Patient History - Past Social History Smoking Status: Heavy Smoker > 10 Cigarettes Daily - ENDOCRINE/METABOLIC Hx Diabetes Mellitus Type 2: Yes - PSYCHIATRIC Hx Substance Use: No - SURGICAL HISTORY Hx Surgeries: No - ANESTHESIA Hx Anesthesia: No Meds Allergies/Adverse Reactions: Allergies Allergy/AdvReac Type Severity Reaction Status Date / Time No Known Allergies Allergy Verified 10/31/17 06:56 - Medications Medications: Current Medications Dextrose (Dextrose 50%) 0 ml IV STAT PRN; Protocol PRN Reason: Hypoglycemia Protocol Dextrose (Glutose 15) 0 gm PO ONCE PRN; Protocol PRN Reason: Hypoglycemia Protocol Docusate Sodium (Colace) 100 mg PO BID PRN PRN Reason: Constipation Glucagon (Glucagen Diagnostic Kit) 0 mg IM STAT PRN; Protocol PRN Reason: Hypoglycemia Protocol Pantoprazole Sodium 80 mg/ (Sodium Chloride) 100 mls @ 10 mls/hr IVP .Q10H [facility] PRN Reason: 8 MG/HR Last Admin: 10/31/17 06:38 Dose: 10 mls/hr Vancomycin/Sodium Chloride (Vancomycin 1 Gm/Ns 200 Ml) 1 gm in 200 mls @ 166.7 mls/hr IVPB Q24H [facility] Stop: 11/05/17 07:01 Last Admin: 10/31/17 08:00 Dose: 166.7 mls/hr Piperacillin Sod/Tazobactam Sod (Zosyn 3.375 Gm Iv Premix) 3.375 gm in 50 mls @ 100 mls/hr IVPB Q6H [facility] Last Admin: 10/31/17 08:48 Dose: 100 mls/hr Acetaminophen (Ofirmev) 100 mls @ 100 mls/hr IV Q8H PRN PRN Reason: Pain, moderate (4-7) Stop: 11/01/17 09:01 Calcium Gluconate 2,000 mg/ (Sodium Chloride) 270 mls @ 67.5 mls/hr IVPB ONCE ONE PRN Reason: Per Protocol Stop: 10/31/17 13:59 Last Admin: 10/31/17 11:28 Dose: 67.5 mls/hr Dextrose (Dextrose 5% In Water 1000 Ml) 1,000 mls @ 0 mls/hr IV .Q0M PRN; Protocol; Per Protocol PRN Reason: Hypoglycemia Protocol Potassium Chloride (Potassium Chloride 20 Meq/100 Ml) 20 meq in 100 mls @ 100 mls/hr IVPB Q1H [facility] Stop: 10/31/17 13:59 Last Admin: 10/31/17 11:27 Dose: 100 mls/hr Insulin Human Regular (Novolin R) 0 unit SC Q6H [facility] PRN Reason: Protocol Last Admin: 10/31/17 12:01 Dose: Not Given Morphine Sulfate (Morphine) 2 mg IVP Q6H PRN PRN Reason: Pain, severe (8-10) Morphine Sulfate (Morphine) 1 mg IVP Q6H PRN PRN Reason: Pain, moderate (4-7) Potassium Chloride (K-Dur 20 Meq Er Tab) 40 meq PO Q4H [facility] Stop: 10/31/17 15:16 Last Admin: 10/31/17 11:25 Dose: Not Given Saccharomyces Boulardii (Florastor) 250 mg PO BID [facility] Last Admin: 10/31/17 10:00 Dose: Not Given Physical Exam - Constitutional Appears: Well, Non-toxic, No Acute Distress - Head Exam Head Exam: ATRAUMATIC, NORMAL INSPECTION, NORMOCEPHALIC - Eye Exam Eye Exam: EOMI - ENT Exam ENT Exam: Mucous Membranes Moist - Respiratory Exam Respiratory Exam: Clear to Auscultation Bilateral, NORMAL BREATHING PATTERN - Cardiovascular Exam Cardiovascular Exam: REGULAR RHYTHM - GI/Abdominal Exam GI & Abdominal Exam: Normal Bowel Sounds, Soft. absent: Distended, Tenderness Additional comments: s/p I/D abscess - Extremities Exam Extremities exam: Negative for: joint swelling, tenderness - Neurological Exam Neurological exam: Alert, Oriented x3 - Psychiatric Exam Psychiatric exam: Normal Affect, Normal Mood - Skin Skin Exam: Dry, Intact, Normal Color, Warm Results - Vital Signs Recent Vital Signs: Last Vital Signs Temp 98.2 F 10/31/17 06:43 Pulse 105 H 10/31/17 06:43 Resp 18 10/31/17 06:43 BP 125/74 10/31/17 06:43 Pulse Ox 99 10/31/17 06:43 - Labs Result Diagrams: 10/31/17 11:19 10/31/17 11:19 Labs: Laboratory Results - last 24 hr 10/31/17 10/31/17 10/31/17 01:55 01:55 01:55 WBC 10.6 RBC 3.13 L Hgb 9.2 L Hct 26.3 L MCV 84.0 MCH 29.4 MCHC 35.0 RDW 12.6 Plt Count 518 H MPV 6.1 L Neut % (Auto) 77.9 H Lymph % (Auto) 15.8 L Cowley % (Auto) 5.4 Eos % (Auto) 0.2 Baso % (Auto) 0.7 Neut # (Auto) 8.3 H Lymph # (Auto) 1.7 Cowley # (Auto) 0.6 Eos # (Auto) 0.0 Baso # (Auto) 0.1 PT 12.1 INR 1.1 APTT 35 H Sodium 136 Potassium 2.5 L* Chloride 87 L Carbon Dioxide 36 H Anion Gap 15 BUN 16 Creatinine 0.6 L Est GFR ( Amer) > 60 Est GFR (Non-Af Amer) > 60 POC Glucose (mg/dL) Random Glucose 172 H Calcium 8.3 L Phosphorus 3.1 Magnesium 1.6 Total Bilirubin 0.3 AST 22 ALT 58 Alkaline Phosphatase 66 Total Protein 6.5 Albumin 3.5 Globulin 3.0 Albumin/Globulin Ratio 1.1 Lipase 33 Blood Type Blood Type Confirm Antibody Screen 10/31/17 10/31/17 10/31/17 01:55 11:19 11:19 WBC 14.2 H RBC 2.23 L Hgb 6.7 L D Hct 19.1 L MCV 85.3 MCH 29.8 MCHC 35.0 RDW 12.8 Plt Count 506 H MPV 6.4 L Neut % (Auto) 73.4 Lymph % (Auto) 17.7 L Cowley % (Auto) 8.4 Eos % (Auto) 0.2 Baso % (Auto) 0.3 Neut # (Auto) 10.5 H Lymph # (Auto) 2.5 Cowley # (Auto) 1.2 H Eos # (Auto) 0.0 Baso # (Auto) 0.0 PT INR APTT Sodium 134 Potassium 2.7 L Chloride 96 L Carbon Dioxide 29 Anion Gap 11 BUN 19 Creatinine 0.5 L Est GFR ( Amer) > 60 Est GFR (Non-Af Amer) > 60 POC Glucose (mg/dL) Random Glucose 185 H Calcium 7.1 L Phosphorus 2.3 L Magnesium 1.5 L Total Bilirubin 0.2 AST 22 ALT 47 Alkaline Phosphatase 54 Total Protein 5.4 L Albumin 2.9 L Globulin 2.5 Albumin/Globulin Ratio 1.1 Lipase Blood Type A POSITIVE Blood Type Confirm A POSITIVE Antibody Screen Negative 10/31/17 11:41 WBC RBC Hgb Hct MCV MCH MCHC RDW Plt Count MPV Neut % (Auto) Lymph % (Auto) Cowley % (Auto) Eos % (Auto) Baso % (Auto) Neut # (Auto) Lymph # (Auto) Cowley # (Auto) Eos # (Auto) Baso # (Auto) PT INR APTT Sodium Potassium Chloride Carbon Dioxide Anion Gap BUN Creatinine Est GFR ( Amer) Est GFR (Non-Af Amer) POC Glucose (mg/dL) 209 H Random Glucose Calcium Phosphorus Magnesium Total Bilirubin AST ALT Alkaline Phosphatase Total Protein Albumin Globulin Albumin/Globulin Ratio Lipase Blood Type Blood Type Confirm Antibody Screen Assessment & Plan - Assessment and Plan (Free Text) Assessment: 51M w/ UGB Neuro: No acute issues Cardio: No acute issues Pulm: no acute issues GI: Acute UGB, EGD today, Protonix drip, transfuse 1 unit PRBC, Vanco and zosyn , NGT Renal: no acute issues Skin: abdominal wall abscess drained by surgery early today PPX: protonix drip, heparin hold for GI bleed <Bella Travis M - Last Filed: 10/31/17 16:16> Meds - Medications Medications: Current Medications Dextrose (Dextrose 50%) 0 ml IV STAT PRN; Protocol PRN Reason: Hypoglycemia Protocol Dextrose (Glutose 15) 0 gm PO ONCE PRN; Protocol PRN Reason: Hypoglycemia Protocol Docusate Sodium (Colace) 100 mg PO BID PRN PRN Reason: Constipation Glucagon (Glucagen Diagnostic Kit) 0 mg IM STAT PRN; Protocol PRN Reason: Hypoglycemia Protocol Pantoprazole Sodium 80 mg/ (Sodium Chloride) 100 mls @ 10 mls/hr IVP .Q10H [facility] PRN Reason: 8 MG/HR Last Admin: 10/31/17 06:38 Dose: 10 mls/hr Vancomycin/Sodium Chloride (Vancomycin 1 Gm/Ns 200 Ml) 1 gm in 200 mls @ 166.7 mls/hr IVPB Q24H [facility] Stop: 11/05/17 07:01 Last Admin: 10/31/17 08:00 Dose: 166.7 mls/hr Piperacillin Sod/Tazobactam Sod (Zosyn 3.375 Gm Iv Premix) 3.375 gm in 50 mls @ 100 mls/hr IVPB Q6H [facility] Last Admin: 10/31/17 08:48 Dose: 100 mls/hr Acetaminophen (Ofirmev) 100 mls @ 100 mls/hr IV Q8H PRN PRN Reason: Pain, moderate (4-7) Stop: 11/01/17 09:01 Dextrose (Dextrose 5% In Water 1000 Ml) 1,000 mls @ 0 mls/hr IV .Q0M PRN; Protocol; Per Protocol PRN Reason: Hypoglycemia Protocol Propofol (Diprivan) 1,000 mg in 100 mls @ 1.769 mls/hr IV .Q24H PRN; Protocol; 5 MCG/KG/MIN PRN Reason: TITRATE PER MD ORDER Insulin Human Regular (Novolin R) 0 unit SC Q6H [facility] PRN Reason: Protocol Last Admin: 10/31/17 12:01 Dose: Not Given Lidocaine HCl (Lidocaine 2% 20ml Vial) 100 ml IV ONCE STA Stop: 10/31/17 15:31 Morphine Sulfate (Morphine) 2 mg IVP Q6H PRN PRN Reason: Pain, severe (8-10) Morphine Sulfate (Morphine) 1 mg IVP Q6H PRN PRN Reason: Pain, moderate (4-7) Propofol (Diprivan) 100 mg IV ONCE STA Stop: 10/31/17 15:30 Saccharomyces Boulardii (Florastor) 250 mg PO BID [facility] Last Admin: 10/31/17 10:00 Dose: Not Given Results - Vital Signs Recent Vital Signs: Last Vital Signs Temp 98.3 F 10/31/17 13:36 Pulse 115 H 10/31/17 13:36 Resp 14 10/31/17 13:36 BP 126/85 10/31/17 13:36 Pulse Ox 100 10/31/17 13:36 - Labs Result Diagrams: 10/31/17 11:19 10/31/17 13:10 Labs: Laboratory Results - last 24 hr 10/31/17 10/31/17 10/31/17 01:55 01:55 01:55 WBC 10.6 RBC 3.13 L Hgb 9.2 L Hct 26.3 L MCV 84.0 MCH 29.4 MCHC 35.0 RDW 12.6 Plt Count 518 H MPV 6.1 L Neut % (Auto) 77.9 H Lymph % (Auto) 15.8 L Cowley % (Auto) 5.4 Eos % (Auto) 0.2 Baso % (Auto) 0.7 Neut # (Auto) 8.3 H Lymph # (Auto) 1.7 Cowley # (Auto) 0.6 Eos # (Auto) 0.0 Baso # (Auto) 0.1 PT 12.1 INR 1.1 APTT 35 H Sodium 136 Potassium 2.5 L* Chloride 87 L Carbon Dioxide 36 H Anion Gap 15 BUN 16 Creatinine 0.6 L Est GFR ( Amer) > 60 Est GFR (Non-Af Amer) > 60 POC Glucose (mg/dL) Random Glucose 172 H Calcium 8.3 L Phosphorus 3.1 Magnesium 1.6 Total Bilirubin 0.3 AST 22 ALT 58 Alkaline Phosphatase 66 Total Protein 6.5 Albumin 3.5 Globulin 3.0 Albumin/Globulin Ratio 1.1 Lipase 33 Blood Type Blood Type Confirm Antibody Screen 10/31/17 10/31/17 10/31/17 01:55 11:19 11:19 WBC 14.2 H RBC 2.23 L Hgb 6.7 L D Hct 19.1 L MCV 85.3 MCH 29.8 MCHC 35.0 RDW 12.8 Plt Count 506 H MPV 6.4 L Neut % (Auto) 73.4 Lymph % (Auto) 17.7 L Cowley % (Auto) 8.4 Eos % (Auto) 0.2 Baso % (Auto) 0.3 Neut # (Auto) 10.5 H Lymph # (Auto) 2.5 Cowley # (Auto) 1.2 H Eos # (Auto) 0.0 Baso # (Auto) 0.0 PT INR APTT Sodium 134 Potassium 2.7 L Chloride 96 L Carbon Dioxide 29 Anion Gap 11 BUN 19 Creatinine 0.5 L Est GFR ( Amer) > 60 Est GFR (Non-Af Amer) > 60 POC Glucose (mg/dL) Random Glucose 185 H Calcium 7.1 L Phosphorus 2.3 L Magnesium 1.5 L Total Bilirubin 0.2 AST 22 ALT 47 Alkaline Phosphatase 54 Total Protein 5.4 L Albumin 2.9 L Globulin 2.5 Albumin/Globulin Ratio 1.1 Lipase Blood Type A POSITIVE Blood Type Confirm A POSITIVE Antibody Screen Negative 10/31/17 10/31/17 11:41 13:10 WBC RBC Hgb Hct MCV MCH MCHC RDW Plt Count MPV Neut % (Auto) Lymph % (Auto) Cowley % (Auto) Eos % (Auto) Baso % (Auto) Neut # (Auto) Lymph # (Auto) Cowley # (Auto) Eos # (Auto) Baso # (Auto) PT INR APTT Sodium Potassium 3.7 Chloride Carbon Dioxide Anion Gap BUN Creatinine Est GFR ( Amer) Est GFR (Non-Af Amer) POC Glucose (mg/dL) 209 H Random Glucose Calcium Phosphorus Magnesium Total Bilirubin AST ALT Alkaline Phosphatase Total Protein Albumin Globulin Albumin/Globulin Ratio Lipase Blood Type Blood Type Confirm Antibody Screen Assessment & Plan - Assessment and Plan (Free Text) Plan: Above patient seen and examined at beside. Patient admitted to ICU for severe Acute blood loss anemia -continue cbc q6hrs, -tranfuse to keep hb/hct >8/24 -continue IV PPI -continue scds -Patient remains hemodyamically stable and will benefit from Gi/endoscopy. -continue IV fluid for hydration -Patient has 2 large bore IV access -will place central line d/w ICu team - Date & Time Date: 10/31/17 Time: 16:16
[2017-10-31] MEDS ORDERED: Midazolam 2 MG/2 ML VIAL ONE ×2 (13:21→14:07)
[2017-10-31] MEDS ORDERED: Propofol 10 mg/ml Inj (20 ML) ONE ×2 (13:23→15:24)
[2017-10-31] MEDS ORDERED: Lidocaine 2% Inj (20ml) ONE (13:33)
[2017-10-31] MEDS ORDERED: Etomidate 20 mg/10ml Inj IV ONE (13:49)
--- NOTE | 2017-10-31 14:24 | PCM.SURG1 ---
Surgeon's Initial Post Op Note - Surgeon's Notes Surgeon: Dr. Tai Astrophysics Teacher: PGY1 Type of Anesthesia: Local Anesthesia Administered By: Pre-Operative Diagnosis: Abdominal wall abscess Operative Findings: purulent drainage upon entry into the abscess cavity Post-Operative Diagnosis: as above Operation Performed: Incision and drainage of abdominal abscess at bedside under local anesthetic Specimen/Specimens Removed: cultures taken Estimated Blood Loss: EBL {In ML}: 1 Drains Used: No Drains Post-Op Condition: Good Date of Surgery/Procedure: 10/31/17 Time of Surgery/Procedure: 11:00
[2017-10-31] MEDS ORDERED: Propofol 10 mg/ml Inj (20 ML) IV ONE (15:20)
[2017-10-31] MEDS ORDERED: Propofol 10 mg/ml 1,000 MG/100 ML VIAL IV PRN ×2 (15:20)
[2017-10-31] MEDS ORDERED: Propofol 10 mg/ml Inj (100 ml) IV STA (15:29)
[2017-10-31] MEDS ORDERED: Lidocaine 2% Inj (20ml) IV STA (15:30)
[2017-10-31] MEDS ORDERED: DiphenhydrAMINE 50 mg/ml Inj IVP STA (16:58)
[2017-10-31] MEDS ORDERED: Midazolam 50 mg/10 ml 100 MG in Dextrose 5% In Water 80 ML IV SCH (17:00)
[2017-10-31] MEDS: Dextrose 5%/0.9% NS 1,000 ML IV SCH (17:00)
[2017-10-31] MEDS ORDERED: Rocuronium 10 mg/ml (5 ml) IV ONE (17:22)
--- NOTE | 2017-10-31 18:13 | PCM.PROC ---
Procedures Attestation:: I certify that I have explained the specified Operation(s) or Procedure(s), risks, benefits and reasonable alternatives to the Patient and/or other person responsible. The opportunity was given to ask questions and all questions answered - Central Line Placement Right Femoral Triple Lumen Catheter Aseptic technique was employed throughout the procedure: Hand Hygiene done prior to procedure, Full sterile barriers (mask, hair cover, sterile gown, sterile gloves), Full body sterile drape, Chloraprep Antiseptic: 2 minute prep for Femoral CVP Time Out Performed: Yes Pt. Placed on Pulse Ox Monitor: Yes Central Line Prep: Povidone-Iodine 1% Local Anesthesia Used: Lidocaine 1% Ultrasound Used for Placement: Yes Central Line Lumen Inserted: triple Central Line Length: 16 cm Post Procedure: Sutured in Place, Good Blood Return, All Ports Aspirated, Flushed, Capped, Sterile Dressing Applied Secured by: Suture Post procedure dressing: Gauze, Clear vapor permeable, Chlorhexidine disc ( Biopatch) Post Procedure X-Ray: Yes Patient Tolerated Procedure: Well Immediate Complications: None
[2017-10-31 18:39] LABS: BASO % 0.3 % (0.0-2.0); HEMOGLOBIN 8.5 g/dL (12.0-18.0); LYMPH # 2.4 K/uL (1.0-4.3); LYMPH % 17.9 % (20.0-40.0); MEAN CELL VOLUME 84.2 fL (80.0-94.0); MEAN CORPUSCULAR HEMOGLOBIN 29.5 pg (27.0-31.0); MONO # 1.1 K/uL (0.0-0.8); MONO % 8.4 % (0.0-10.0); NEUT # 9.9 K/uL (1.8-7.0); NEUT % 73.4 % (50.0-75.0); NRBC % 0.1 % (0.0-2.0); RBC 2.9 Mil/uL (4.40-5.90); RED CELL DISTRIBUTION WIDTH 14.7 % (11.5-14.5); WHITE BLOOD COUNT 13.6 K/uL (4.8-10.8)
--- NOTE | 2017-10-31 20:26 | RAD ---
HISTORY: et tube COMPARISON: Chest x-ray performed 10/31/17 TECHNIQUE: Chest, one view. FINDINGS: Endotracheal tube terminates approximately 4.9 cm above the gopal. LUNGS: No focal consolidation. Please note that chest x-ray has limited sensitivity for the detection of pulmonary masses. PLEURA: No significant pleural effusion identified. No definite pneumothorax . CARDIOVASCULAR: Heart size appears within normal limits. OSSEOUS STRUCTURES: Degenerative changes of the spine. VISUALIZED UPPER ABDOMEN: Oblique radiopaque object projects over the low right upper quadrant; correlate clinically. Several ovoid structures project over the gastric bubble, possibly ingested debris. OTHER FINDINGS: None. IMPRESSION: Endotracheal tube terminates approximately 4.9 cm above the gopal. Oblique radiopaque object projects over the low right upper quadrant; correlate clinically. Several ovoid structures project over the gastric bubble, possibly ingested debris.
[2017-10-31 21:27] LABS: ABG ALLEN TEST POS; ARTERIAL BLOOD GAS HCO3 30.9 mmol/L (21-28); ARTERIAL BLOOD GAS HEMOGLOBIN 7.6 g/dL (11.7-17.4); ARTERIAL BLOOD GAS O2 SAT 99.1 % (95-98); ARTERIAL BLOOD GAS PCO2 33 mm/Hg (35-45); ARTERIAL BLOOD GAS PH 7.57 (7.35-7.45); ARTERIAL BLOOD GAS PO2 304 mm/Hg (80-100); ARTERIAL BLOOD GAS TCO2 31.2 mmol/L (22-28)
[2017-11-01] MEDS: (Novolin R) Insulin Human Regular 100 units/ml vial SC SCH ×4 (00:08→18:12)
[2017-11-01] MEDS: Piperacill/Tazo 3.375gm in Dex 3.375 GM/50 ML BAG IVPB SCH ×4 (02:47→20:00)
[2017-11-01] MEDS: Pantoprazole 80 MG in Sodium Chloride 0.9% 100 ML IVP SCH ×3 (02:50→15:46)
[2017-11-01] MEDS: Dextrose 5%/0.9% NS 1,000 ML IV SCH ×5 (02:53→22:46)
[2017-11-01 03:44] LABS: BASO % 0.3 % (0.0-2.0); HEMOGLOBIN 9.6 g/dL (12.0-18.0); LYMPH # 1.4 K/uL (1.0-4.3); LYMPH % 12.2 % (20.0-40.0); MEAN CELL VOLUME 84.5 fL (80.0-94.0); MEAN CORPUSCULAR HEMOGLOBIN 29.4 pg (27.0-31.0); MEAN CORPUSCULAR HGB CONC 34.8 g/dL (33.0-37.0); MEAN PLATELET VOLUME 6.1 fL (7.2-11.7); MONO # 0.7 K/uL (0.0-0.8); MONO % 6.1 % (0.0-10.0); NEUT # 9.5 K/uL (1.8-7.0); NEUT % 81.4 % (50.0-75.0); RBC 3.26 Mil/uL (4.40-5.90); WHITE BLOOD COUNT 11.7 K/uL (4.8-10.8)
[2017-11-01 04:03] LABS: ALB/GLOB RATIO 1.1 (1.0-2.1); ALBUMIN 2.6 g/dL (3.5-5.0); ALT/SGPT 41 U/L (21-72); AST/SGOT 22 U/L (17-59); BLOOD UREA NITROGEN 17 mg/dL (9-20); CALCIUM 7.2 mg/dl (8.6-10.4); GFR AFRICAN-AMERICAN > 60; GFR NON-AFRICAN AMERICAN > 60; HDL CHOLESTEROL 19 mg/dL (30-70); MAGNESIUM 1.5 mg/dL (1.6-2.3)
[2017-11-01 04:13] LABS: LDL CHOLESTEROL 53 mg/dL (0-129)
[2017-11-01] MEDS ORDERED: Magnesium Sulfate 1 gm in D5W 1 GM/100 ML BAG IVPB ONE (04:57)
[2017-11-01] MEDS ORDERED: Potassium Phosphate 15 MMOLE in Sodium Chloride 0.9% 250 ML IVPB ONE (06:17)
[2017-11-01 06:36] LABS: ABG ALLEN TEST POS; ARTERIAL BLOOD GAS HCO3 28.1 mmol/L (21-28); ARTERIAL BLOOD GAS HEMOGLOBIN 9.7 g/dL (11.7-17.4); ARTERIAL BLOOD GAS O2 SAT 98.9 % (95-98); ARTERIAL BLOOD GAS PCO2 35 mm/Hg (35-45); ARTERIAL BLOOD GAS PO2 147 mm/Hg (80-100); ARTERIAL BLOOD GAS TCO2 28.4 mmol/L (22-28)
[2017-11-01] MEDS: Vancomycin 1 gm/NS 200 ml 1 GM/200 ML BAG IVPB SCH (06:37)
--- NOTE | 2017-11-01 08:02 | CP.CCUPN ---
CCU Subjective - Physician Review Subjective (Free Text): Patient seen and examined at bedside. Patient awake alert. intubated. overnight no acute events. Hb stable 11/01/17 07:59 Critical Care Time Spent (in minutes): 35 CCU Objective - Vital Signs / Intake & Output Vital Signs (Last 4 hours): Vital Signs Pulse Resp BP Pulse Ox 11/01/17 04:09 76 20 95/62 L 100 11/01/17 04:00 77 20 100 Intake and Output (Last 8hrs): Intake & Output 10/31/17 11/01/17 11/01/17 22:59 06:59 14:59 Intake Total 1116.8 762 Output Total 2200 430 Balance -1083.2 332 Intake: IV 77 Intake, IV Amount 1039.8 762 Left Wrist 135.0 Right Antecubital 10 Right Antecubital #2 700 600 Right Distal Port Femoral 30 60 Right Forearm 50 Right Hand 63.8 Right Medial Port Femoral 15 30 Right Proximal Port 36 72 Femoral Output: Urine 2200 430 Urethral (Marcus) 2200 430 - Physical Exam Head: Positive for: Atraumatic, Normocephalic Extroacular Muscles: Positive for: EOMI Cardiovascular: Positive for: Regular Rate and Rhythm, Normal S1, S2 Abdomen: Positive for: Distention, Normal Bowel Sounds. Negative for: Peritoneal Signs Lower Extremity: Positive for: Edema Skin: Positive for: Warm - Medications Active Medications: Active Medications Generic Name Dose Route Start Last Admin Trade Name Freq PRN Reason Stop Dose Admin Dextrose 0 ml 10/31/17 09:40 Dextrose 50% IV STAT PRN Hypoglycemia Protocol Protocol Dextrose 0 gm 10/31/17 09:40 Glutose 15 PO ONCE PRN Hypoglycemia Protocol Protocol Docusate Sodium 100 mg 10/31/17 09:58 Colace PO BID PRN Constipation Glucagon 0 mg 10/31/17 09:40 Glucagen Diagnostic Kit IM STAT PRN Hypoglycemia Protocol Protocol Pantoprazole Sodium 80 mg/ 100 mls @ 10 mls/hr 10/31/17 06:00 11/01/17 02:50 Sodium Chloride IVP 10 mls/hr .Q10H DAVEY Administration 8 MG/HR Vancomycin/Sodium Chloride 1 gm in 200 mls @ 166.7 mls/hr 10/31/17 07:00 07/09 06:37 Vancomycin 1 Gm/Ns 200 Ml IVPB 11/05/17 07:01 166.7 mls/hr Q24H DAVEY Administration Piperacillin Sod/Tazobactam Sod 3.375 gm in 50 mls @ 100 mls/hr 10/31/17 08: 00 11/01/17 02:47 Zosyn 3.375 Gm Iv Premix IVPB 100 mls/hr Q6H DAVEY Administration Acetaminophen 100 mls @ 100 mls/hr 10/31/17 09:00 Ofirmev IV 11/01/17 09:01 Q8H PRN Pain, moderate (4-7) Dextrose 1,000 mls @ 0 mls/hr 10/31/17 09:40 Dextrose 5% In Water 1000 Ml IV .Q0M PRN Hypoglycemia Protocol Protocol Per Protocol Dextrose/Sodium Chloride 1,000 mls @ 100 mls/hr 10/31/17 16:30 11/01/17 02:53 Dextrose 5%/0.9% Ns 1000 Ml IV Not Given .Q10H DAVEY Midazolam HCl 100 mg/ Dextrose 100 mls @ 1.17 mls/hr 10/31/17 17:00 10/31/17 18:10 IV 0.08 mg/kg/hr .Q24H DAVEY 5 mls/hr Protocol Titration 0.02 MG/KG/HR Fentanyl Citrate 2,500 mcg/ 250 mls @ 11.79 mls/hr 10/31/17 18:30 10/31/17 19 :15 Sodium Chloride IV 2 mcg/kg/hr .[id number] DAVEY 11.79 mls/hr Protocol Administration 2 MCG/KG/HR Potassium Phosphate 15 mmole/ 255 mls @ 42.5 mls/hr 11/01/17 06:17 Sodium Chloride IVPB 11/01/17 12:16 ONCE ONE Insulin Human Regular 0 unit 10/31/17 12:00 11/01/17 00:08 Novolin R SC Not Given Q6H [facility] Protocol Lorazepam 4 mg 11/01/17 07:52 Ativan IVP Q2H PRN Sedation Morphine Sulfate 2 mg 10/31/17 09:56 Morphine IVP Q6H PRN Pain, severe (8-10) Morphine Sulfate 1 mg 10/31/17 09:56 Morphine IVP Q6H PRN Pain, moderate (4-7) Saccharomyces Boulardii 250 mg 10/31/17 10:00 10/31/17 19:17 Florastor PO Not Given BID DAVEY - Patient Studies Lab Studies: Microbiology Studies 10/31/17 11:04 Gram Stain - Final Abscess - Abscess Lab Studies 11/01/17 11/01/17 11/01/17 Range/Units 06:12 04:56 03:39 WBC 11.7 H (4.8-10.8) K/uL RBC 3.26 L (4.40-5.90) Mil/uL Hgb 9.6 L (12.0-18.0) g/dL Hct 27.6 L (35.0-51.0) % MCV 84.5 (80.0-94.0) fL MCH 29.4 (27.0-31.0) pg MCHC 34.8 (33.0-37.0) g/dL RDW 14.0 (11.5-14.5) % Plt Count 328 D (130-400) K/uL MPV 6.1 L (7.2-11.7) fL Neut % (Auto) 81.4 H (50.0-75.0) % Lymph % (Auto) 12.2 L (20.0-40.0) % [place] % (Auto) 6.1 (0.0-10.0) % Eos % (Auto) 0.0 (0.0-4.0) % Baso % (Auto) 0.3 (0.0-2.0) % Neut # (Auto) 9.5 H (1.8-7.0) K/uL Lymph # (Auto) 1.4 (1.0-4.3) K/uL [place] # (Auto) 0.7 (0.0-0.8) K/uL Eos # (Auto) 0.0 (0.0-0.7) K/uL Baso # (Auto) 0.0 (0.0-0.2) K/uL Puncture Site Rr pCO2 35 (35-45) mm/Hg pO2 147 H (80-100) mm/Hg HCO3 28.1 H (21-28) mmol/L ABG pH 7.50 H (7.35-7.45) ABG Total CO2 28.4 H (22-28) mmol/L ABG O2 Saturation 98.9 H (95-98) % ABG Base Excess 4.0 H (-2.0-3.0) mmol/L ABG Hemoglobin 9.7 L (11.7-17.4) g/dL ABG Carboxyhemoglobin 1.6 H (0.5-1.5) % POC ABG HHb (Measured) 1.1 (0.0-5.0) % ABG Methemoglobin 1.0 (0.0-3.0) % Jean-Claude Test Pos A-a O2 Difference 94.0 mm/Hg Respiratory Index 0.6 Hgb O2 Saturation 96.4 (95.0-98.0) % Vent Mode Prvc Mechanical Rate 20 FiO2 40.0 % Tidal Volume 500 PEEP 5 Sodium (132-148) mmol/L Potassium (3.6-5.2) mmol/L Chloride (98-107) mmol/L Carbon Dioxide (22-30) mmol/L Anion Gap (10-20) BUN (9-20) mg/dL Creatinine (0.8-1.5) mg/dL Est GFR ( Amer) Est GFR (Non-Af Amer) POC Glucose (mg/dL) 196 H (65-110) mg/dL Random Glucose (75-110) mg/dL Lactic Acid (0.7-2.1) mmol/L Calcium (8.6-10.4) mg/dl Phosphorus (2.5-4.5) mg/dL Magnesium (1.6-2.3) mg/dL Total Bilirubin (0.2-1.3) mg/dL AST (17-59) U/L ALT (21-72) U/L Alkaline Phosphatase (38-126) U/L Total Protein (6.3-8.3) g/dL Albumin (3.5-5.0) g/dL Globulin (2.2-3.9) gm/dL Albumin/Globulin Ratio (1.0-2.1) Triglycerides (0-149) mg/dL Cholesterol (0-199) mg/dL LDL Cholesterol Direct (0-129) mg/dL HDL Cholesterol (30-70) mg/dL Lipase (23-300) U/L Free T4 (0.78-2.19) ng/dL TSH 3rd Generation (0.46-4.68) mIU/L Blood Type Blood Type Confirm Antibody Screen 11/01/17 11/01/17 11/01/17 Range/Units 03:39 03:39 03:39 WBC (4.8-10.8) K/uL RBC (4.40-5.90) Mil/uL Hgb (12.0-18.0) g/dL Hct (35.0-51.0) % MCV (80.0-94.0) fL MCH (27.0-31.0) pg MCHC (33.0-37.0) g/dL RDW (11.5-14.5) % Plt Count (130-400) K/uL MPV (7.2-11.7) fL Neut % (Auto) (50.0-75.0) % Lymph % (Auto) (20.0-40.0) % [place] % (Auto) (0.0-10.0) % Eos % (Auto) (0.0-4.0) % Baso % (Auto) (0.0-2.0) % Neut # (Auto) (1.8-7.0) K/uL Lymph # (Auto) (1.0-4.3) K/uL [place] # (Auto) (0.0-0.8) K/uL Eos # (Auto) (0.0-0.7) K/uL Baso # (Auto) (0.0-0.2) K/uL Puncture Site pCO2 (35-45) mm/Hg pO2 (80-100) mm/Hg HCO3 (21-28) mmol/L ABG pH (7.35-7.45) ABG Total CO2 (22-28) mmol/L ABG O2 Saturation (95-98) % ABG Base Excess (-2.0-3.0) mmol/L ABG Hemoglobin (11.7-17.4) g/dL ABG Carboxyhemoglobin (0.5-1.5) % POC ABG HHb (Measured) (0.0-5.0) % ABG Methemoglobin (0.0-3.0) % Jean-Claude Test A-a O2 Difference mm/Hg Respiratory Index Hgb O2 Saturation (95.0-98.0) % Vent Mode Mechanical Rate FiO2 % Tidal Volume PEEP Sodium 135 (132-148) mmol/L Potassium 2.8 L (3.6-5.2) mmol/L Chloride 100 (98-107) mmol/L Carbon Dioxide 28 (22-30) mmol/L Anion Gap 10 (10-20) BUN 17 (9-20) mg/dL Creatinine 0.6 L (0.8-1.5) mg/dL Est GFR ( Amer) > 60 Est GFR (Non-Af Amer) > 60 POC Glucose (mg/dL) (65-110) mg/dL Random Glucose 195 H (75-110) mg/dL Lactic Acid 1.0 (0.7-2.1) mmol/L Calcium 7.2 L (8.6-10.4) mg/dl Phosphorus 2.3 L (2.5-4.5) mg/dL Magnesium 1.5 L (1.6-2.3) mg/dL Total Bilirubin 0.3 (0.2-1.3) mg/dL AST 22 (17-59) U/L ALT 41 (21-72) U/L Alkaline Phosphatase 44 (38-126) U/L Total Protein 4.9 L (6.3-8.3) g/dL Albumin 2.6 L (3.5-5.0) g/dL Globulin 2.3 (2.2-3.9) gm/dL Albumin/Globulin Ratio 1.1 (1.0-2.1) Triglycerides 149 (0-149) mg/dL Cholesterol 96 (0-199) mg/dL LDL Cholesterol Direct 53 (0-129) mg/dL HDL Cholesterol 19 L (30-70) mg/dL Lipase (23-300) U/L Free T4 1.29 (0.78-2.19) ng/dL TSH 3rd Generation 1.34 (0.46-4.68) mIU/L Blood Type Blood Type Confirm Antibody Screen 10/31/17 10/31/17 10/31/17 Range/Units 23:47 21:20 18:57 WBC (4.8-10.8) K/uL RBC (4.40-5.90) Mil/uL Hgb (12.0-18.0) g/dL Hct (35.0-51.0) % MCV (80.0-94.0) fL MCH (27.0-31.0) pg MCHC (33.0-37.0) g/dL RDW (11.5-14.5) % Plt Count (130-400) K/uL MPV (7.2-11.7) fL Neut % (Auto) (50.0-75.0) % Lymph % (Auto) (20.0-40.0) % [place] % (Auto) (0.0-10.0) % Eos % (Auto) (0.0-4.0) % Baso % (Auto) (0.0-2.0) % Neut # (Auto) (1.8-7.0) K/uL Lymph # (Auto) (1.0-4.3) K/uL [place] # (Auto) (0.0-0.8) K/uL Eos # (Auto) (0.0-0.7) K/uL Baso # (Auto) (0.0-0.2) K/uL Puncture Site Rra pCO2 33 L (35-45) mm/Hg pO2 304 H (80-100) mm/Hg HCO3 30.9 H (21-28) mmol/L ABG pH 7.57 H (7.35-7.45) ABG Total CO2 31.2 H (22-28) mmol/L ABG O2 Saturation 99.1 H (95-98) % ABG Base Excess 7.6 H (-2.0-3.0) mmol/L ABG Hemoglobin 7.6 L (11.7-17.4) g/dL ABG Carboxyhemoglobin 1.0 (0.5-1.5) % POC ABG HHb (Measured) 0.9 (0.0-5.0) % ABG Methemoglobin 0.9 (0.0-3.0) % Jean-Claude Test Pos A-a O2 Difference 225.0 mm/Hg Respiratory Index 0.7 Hgb O2 Saturation 97.3 (95.0-98.0) % Vent Mode Prvc Mechanical Rate 20 FiO2 80.0 % Tidal Volume 500 PEEP 5 Sodium (132-148) mmol/L Potassium (3.6-5.2) mmol/L Chloride (98-107) mmol/L Carbon Dioxide (22-30) mmol/L Anion Gap (10-20) BUN (9-20) mg/dL Creatinine (0.8-1.5) mg/dL Est GFR ( Amer) Est GFR (Non-Af Amer) POC Glucose (mg/dL) 234 H 197 H (65-110) mg/dL Random Glucose (75-110) mg/dL Lactic Acid (0.7-2.1) mmol/L Calcium (8.6-10.4) mg/dl Phosphorus (2.5-4.5) mg/dL Magnesium (1.6-2.3) mg/dL Total Bilirubin (0.2-1.3) mg/dL AST (17-59) U/L ALT (21-72) U/L Alkaline Phosphatase (38-126) U/L Total Protein (6.3-8.3) g/dL Albumin (3.5-5.0) g/dL Globulin (2.2-3.9) gm/dL Albumin/Globulin Ratio (1.0-2.1) Triglycerides (0-149) mg/dL Cholesterol (0-199) mg/dL LDL Cholesterol Direct (0-129) mg/dL HDL Cholesterol (30-70) mg/dL Lipase (23-300) U/L Free T4 (0.78-2.19) ng/dL TSH 3rd Generation (0.46-4.68) mIU/L Blood Type Blood Type Confirm Antibody Screen 10/31/17 10/31/17 10/31/17 Range/Units 18:31 13:10 11:41 WBC 13.6 H (4.8-10.8) K/uL RBC 2.90 L (4.40-5.90) Mil/uL Hgb 8.5 L (12.0-18.0) g/dL Hct 24.4 L (35.0-51.0) % MCV 84.2 (80.0-94.0) fL MCH 29.5 (27.0-31.0) pg MCHC 35.0 (33.0-37.0) g/dL RDW 14.7 H (11.5-14.5) % Plt Count 442 H (130-400) K/uL MPV 6.0 L (7.2-11.7) fL Neut % (Auto) 73.4 (50.0-75.0) % Lymph % (Auto) 17.9 L (20.0-40.0) % [place] % (Auto) 8.4 (0.0-10.0) % Eos % (Auto) 0.0 (0.0-4.0) % Baso % (Auto) 0.3 (0.0-2.0) % Neut # (Auto) 9.9 H (1.8-7.0) K/uL Lymph # (Auto) 2.4 (1.0-4.3) K/uL [place] # (Auto) 1.1 H (0.0-0.8) K/uL Eos # (Auto) 0.0 (0.0-0.7) K/uL Baso # (Auto) 0.0 (0.0-0.2) K/uL Puncture Site pCO2 (35-45) mm/Hg pO2 (80-100) mm/Hg HCO3 (21-28) mmol/L ABG pH (7.35-7.45) ABG Total CO2 (22-28) mmol/L ABG O2 Saturation (95-98) % ABG Base Excess (-2.0-3.0) mmol/L ABG Hemoglobin (11.7-17.4) g/dL ABG Carboxyhemoglobin (0.5-1.5) % POC ABG HHb (Measured) (0.0-5.0) % ABG Methemoglobin (0.0-3.0) % Jean-Claude Test A-a O2 Difference mm/Hg Respiratory Index Hgb O2 Saturation (95.0-98.0) % Vent Mode Mechanical Rate FiO2 % Tidal Volume PEEP Sodium (132-148) mmol/L Potassium 3.7 (3.6-5.2) mmol/L Chloride (98-107) mmol/L Carbon Dioxide (22-30) mmol/L Anion Gap (10-20) BUN (9-20) mg/dL Creatinine (0.8-1.5) mg/dL Est GFR ( Amer) Est GFR (Non-Af Amer) POC Glucose (mg/dL) 209 H (65-110) mg/dL Random Glucose (75-110) mg/dL Lactic Acid (0.7-2.1) mmol/L Calcium (8.6-10.4) mg/dl Phosphorus (2.5-4.5) mg/dL Magnesium (1.6-2.3) mg/dL Total Bilirubin (0.2-1.3) mg/dL AST (17-59) U/L ALT (21-72) U/L Alkaline Phosphatase (38-126) U/L Total Protein (6.3-8.3) g/dL Albumin (3.5-5.0) g/dL Globulin (2.2-3.9) gm/dL Albumin/Globulin Ratio (1.0-2.1) Triglycerides (0-149) mg/dL Cholesterol (0-199) mg/dL LDL Cholesterol Direct (0-129) mg/dL HDL Cholesterol (30-70) mg/dL Lipase (23-300) U/L Free T4 (0.78-2.19) ng/dL TSH 3rd Generation (0.46-4.68) mIU/L Blood Type Blood Type Confirm Antibody Screen 10/31/17 10/31/17 10/31/17 Range/Units 11:19 11:19 01:55 WBC 14.2 H (4.8-10.8) K/uL RBC 2.23 L (4.40-5.90) Mil/uL Hgb 6.7 L D (12.0-18.0) g/dL Hct 19.1 L (35.0-51.0) % MCV 85.3 (80.0-94.0) fL MCH 29.8 (27.0-31.0) pg MCHC 35.0 (33.0-37.0) g/dL RDW 12.8 (11.5-14.5) % Plt Count 506 H (130-400) K/uL MPV 6.4 L (7.2-11.7) fL Neut % (Auto) 73.4 (50.0-75.0) % Lymph % (Auto) 17.7 L (20.0-40.0) % [place] % (Auto) 8.4 (0.0-10.0) % Eos % (Auto) 0.2 (0.0-4.0) % Baso % (Auto) 0.3 (0.0-2.0) % Neut # (Auto) 10.5 H (1.8-7.0) K/uL Lymph # (Auto) 2.5 (1.0-4.3) K/uL [place] # (Auto) 1.2 H (0.0-0.8) K/uL Eos # (Auto) 0.0 (0.0-0.7) K/uL Baso # (Auto) 0.0 (0.0-0.2) K/uL Puncture Site pCO2 (35-45) mm/Hg pO2 (80-100) mm/Hg HCO3 (21-28) mmol/L ABG pH (7.35-7.45) ABG Total CO2 (22-28) mmol/L ABG O2 Saturation (95-98) % ABG Base Excess (-2.0-3.0) mmol/L ABG Hemoglobin (11.7-17.4) g/dL ABG Carboxyhemoglobin (0.5-1.5) % POC ABG HHb (Measured) (0.0-5.0) % ABG Methemoglobin (0.0-3.0) % Jean-Claude Test A-a O2 Difference mm/Hg Respiratory Index Hgb O2 Saturation (95.0-98.0) % Vent Mode Mechanical Rate FiO2 % Tidal Volume PEEP Sodium 134 (132-148) mmol/L Potassium 2.7 L (3.6-5.2) mmol/L Chloride 96 L (98-107) mmol/L Carbon Dioxide 29 (22-30) mmol/L Anion Gap 11 (10-20) BUN 19 (9-20) mg/dL Creatinine 0.5 L (0.8-1.5) mg/dL Est GFR ( Amer) > 60 Est GFR (Non-Af Amer) > 60 POC Glucose (mg/dL) (65-110) mg/dL Random Glucose 185 H (75-110) mg/dL Lactic Acid (0.7-2.1) mmol/L Calcium 7.1 L (8.6-10.4) mg/dl Phosphorus 2.3 L (2.5-4.5) mg/dL Magnesium 1.5 L (1.6-2.3) mg/dL Total Bilirubin 0.2 (0.2-1.3) mg/dL AST 22 (17-59) U/L ALT 47 (21-72) U/L Alkaline Phosphatase 54 (38-126) U/L Total Protein 5.4 L (6.3-8.3) g/dL Albumin 2.9 L (3.5-5.0) g/dL Globulin 2.5 (2.2-3.9) gm/dL Albumin/Globulin Ratio 1.1 (1.0-2.1) Triglycerides (0-149) mg/dL Cholesterol (0-199) mg/dL LDL Cholesterol Direct (0-129) mg/dL HDL Cholesterol (30-70) mg/dL Lipase (23-300) U/L Free T4 (0.78-2.19) ng/dL TSH 3rd Generation (0.46-4.68) mIU/L Blood Type A POSITIVE Blood Type Confirm A POSITIVE Antibody Screen Negative 10/31/17 Range/Units 01:55 WBC (4.8-10.8) K/uL RBC (4.40-5.90) Mil/uL Hgb (12.0-18.0) g/dL Hct (35.0-51.0) % MCV (80.0-94.0) fL MCH (27.0-31.0) pg MCHC (33.0-37.0) g/dL RDW (11.5-14.5) % Plt Count (130-400) K/uL MPV (7.2-11.7) fL Neut % (Auto) (50.0-75.0) % Lymph % (Auto) (20.0-40.0) % [place] % (Auto) (0.0-10.0) % Eos % (Auto) (0.0-4.0) % Baso % (Auto) (0.0-2.0) % Neut # (Auto) (1.8-7.0) K/uL Lymph # (Auto) (1.0-4.3) K/uL [place] # (Auto) (0.0-0.8) K/uL Eos # (Auto) (0.0-0.7) K/uL Baso # (Auto) (0.0-0.2) K/uL Puncture Site pCO2 (35-45) mm/Hg pO2 (80-100) mm/Hg HCO3 (21-28) mmol/L ABG pH (7.35-7.45) ABG Total CO2 (22-28) mmol/L ABG O2 Saturation (95-98) % ABG Base Excess (-2.0-3.0) mmol/L ABG Hemoglobin (11.7-17.4) g/dL ABG Carboxyhemoglobin (0.5-1.5) % POC ABG HHb (Measured) (0.0-5.0) % ABG Methemoglobin (0.0-3.0) % Jean-Claude Test A-a O2 Difference mm/Hg Respiratory Index Hgb O2 Saturation (95.0-98.0) % Vent Mode Mechanical Rate FiO2 % Tidal Volume PEEP Sodium 136 (132-148) mmol/L Potassium 2.5 L* (3.6-5.2) mmol/L Chloride 87 L (98-107) mmol/L Carbon Dioxide 36 H (22-30) mmol/L Anion Gap 15 (10-20) BUN 16 (9-20) mg/dL Creatinine 0.6 L (0.8-1.5) mg/dL Est GFR ( Amer) > 60 Est GFR (Non-Af Amer) > 60 POC Glucose (mg/dL) (65-110) mg/dL Random Glucose 172 H (75-110) mg/dL Lactic Acid (0.7-2.1) mmol/L Calcium 8.3 L (8.6-10.4) mg/dl Phosphorus 3.1 (2.5-4.5) mg/dL Magnesium 1.6 (1.6-2.3) mg/dL Total Bilirubin 0.3 (0.2-1.3) mg/dL AST 22 (17-59) U/L ALT 58 (21-72) U/L Alkaline Phosphatase 66 (38-126) U/L Total Protein 6.5 (6.3-8.3) g/dL Albumin 3.5 (3.5-5.0) g/dL Globulin 3.0 (2.2-3.9) gm/dL Albumin/Globulin Ratio 1.1 (1.0-2.1) Triglycerides (0-149) mg/dL Cholesterol (0-199) mg/dL LDL Cholesterol Direct (0-129) mg/dL HDL Cholesterol (30-70) mg/dL Lipase 33 (23-300) U/L Free T4 (0.78-2.19) ng/dL TSH 3rd Generation (0.46-4.68) mIU/L Blood Type Blood Type Confirm Antibody Screen Laboratory Results - last 24 hr 10/31/17 10/31/17 10/31/17 01:55 01:55 11:19 WBC 14.2 H RBC 2.23 L Hgb 6.7 L D Hct 19.1 L MCV 85.3 MCH 29.8 MCHC 35.0 RDW 12.8 Plt Count 506 H MPV 6.4 L Neut % (Auto) 73.4 Lymph % (Auto) 17.7 L [place] % (Auto) 8.4 Eos % (Auto) 0.2 Baso % (Auto) 0.3 Neut # (Auto) 10.5 H Lymph # (Auto) 2.5 [place] # (Auto) 1.2 H Eos # (Auto) 0.0 Baso # (Auto) 0.0 Puncture Site pCO2 pO2 HCO3 ABG pH ABG Total CO2 ABG O2 Saturation ABG Base Excess ABG Hemoglobin ABG Carboxyhemoglobin POC ABG HHb (Measured) ABG Methemoglobin Jean-Claude Test A-a O2 Difference Respiratory Index Hgb O2 Saturation Vent Mode Mechanical Rate FiO2 Tidal Volume PEEP Sodium 136 Potassium 2.5 L* Chloride 87 L Carbon Dioxide 36 H Anion Gap 15 BUN 16 Creatinine 0.6 L Est GFR ( Amer) > 60 Est GFR (Non-Af Amer) > 60 POC Glucose (mg/dL) Random Glucose 172 H Lactic Acid Calcium 8.3 L Phosphorus 3.1 Magnesium 1.6 Total Bilirubin 0.3 AST 22 ALT 58 Alkaline Phosphatase 66 Total Protein 6.5 Albumin 3.5 Globulin 3.0 Albumin/Globulin Ratio 1.1 Triglycerides Cholesterol LDL Cholesterol Direct HDL Cholesterol Lipase 33 Free T4 TSH 3rd Generation Blood Type A POSITIVE Blood Type Confirm A POSITIVE Antibody Screen Negative 10/31/17 10/31/17 10/31/17 11:19 11:41 13:10 WBC RBC Hgb Hct MCV MCH MCHC RDW Plt Count MPV Neut % (Auto) Lymph % (Auto) [place] % (Auto) Eos % (Auto) Baso % (Auto) Neut # (Auto) Lymph # (Auto) [place] # (Auto) Eos # (Auto) Baso # (Auto) Puncture Site pCO2 pO2 HCO3 ABG pH ABG Total CO2 ABG O2 Saturation ABG Base Excess ABG Hemoglobin ABG Carboxyhemoglobin POC ABG HHb (Measured) ABG Methemoglobin Jean-Claude Test A-a O2 Difference Respiratory Index Hgb O2 Saturation Vent Mode Mechanical Rate FiO2 Tidal Volume PEEP Sodium 134 Potassium 2.7 L 3.7 Chloride 96 L Carbon Dioxide 29 Anion Gap 11 BUN 19 Creatinine 0.5 L Est GFR ( Amer) > 60 Est GFR (Non-Af Amer) > 60 POC Glucose (mg/dL) 209 H Random Glucose 185 H Lactic Acid Calcium 7.1 L Phosphorus 2.3 L Magnesium 1.5 L Total Bilirubin 0.2 AST 22 ALT 47 Alkaline Phosphatase 54 Total Protein 5.4 L Albumin 2.9 L Globulin 2.5 Albumin/Globulin Ratio 1.1 Triglycerides Cholesterol LDL Cholesterol Direct HDL Cholesterol Lipase Free T4 TSH 3rd Generation Blood Type Blood Type Confirm Antibody Screen 10/31/17 10/31/17 10/31/17 18:31 18:57 21:20 WBC 13.6 H RBC 2.90 L Hgb 8.5 L Hct 24.4 L MCV 84.2 MCH 29.5 MCHC 35.0 RDW 14.7 H Plt Count 442 H MPV 6.0 L Neut % (Auto) 73.4 Lymph % (Auto) 17.9 L [place] % (Auto) 8.4 Eos % (Auto) 0.0 Baso % (Auto) 0.3 Neut # (Auto) 9.9 H Lymph # (Auto) 2.4 [place] # (Auto) 1.1 H Eos # (Auto) 0.0 Baso # (Auto) 0.0 Puncture Site Rra pCO2 33 L pO2 304 H HCO3 30.9 H ABG pH 7.57 H ABG Total CO2 31.2 H ABG O2 Saturation 99.1 H ABG Base Excess 7.6 H ABG Hemoglobin 7.6 L ABG Carboxyhemoglobin 1.0 POC ABG HHb (Measured) 0.9 ABG Methemoglobin 0.9 [place] Test Pos A-a O2 Difference 225.0 Respiratory Index 0.7 Hgb O2 Saturation 97.3 Vent Mode Prvc Mechanical Rate 20 FiO2 80.0 Tidal Volume 500 PEEP 5 Sodium Potassium Chloride Carbon Dioxide Anion Gap BUN Creatinine Est GFR ( Amer) Est GFR (Non-Af Amer) POC Glucose (mg/dL) 197 H Random Glucose Lactic Acid Calcium Phosphorus Magnesium Total Bilirubin AST ALT Alkaline Phosphatase Total Protein Albumin Globulin Albumin/Globulin Ratio Triglycerides Cholesterol LDL Cholesterol Direct HDL Cholesterol Lipase Free T4 TSH 3rd Generation Blood Type Blood Type Confirm Antibody Screen 10/31/17 11/01/17 11/01/17 23:47 03:39 03:39 WBC RBC Hgb Hct MCV MCH MCHC RDW Plt Count MPV Neut % (Auto) Lymph % (Auto) [place] % (Auto) Eos % (Auto) Baso % (Auto) Neut # (Auto) Lymph # (Auto) [place] # (Auto) Eos # (Auto) Baso # (Auto) Puncture Site pCO2 pO2 HCO3 ABG pH ABG Total CO2 ABG O2 Saturation ABG Base Excess ABG Hemoglobin ABG Carboxyhemoglobin POC ABG HHb (Measured) ABG Methemoglobin [place] Test A-a O2 Difference Respiratory Index Hgb O2 Saturation Vent Mode Mechanical Rate FiO2 Tidal Volume PEEP Sodium 135 Potassium 2.8 L Chloride 100 Carbon Dioxide 28 Anion Gap 10 BUN 17 Creatinine 0.6 L Est GFR ( Amer) > 60 Est GFR (Non-Af Amer) > 60 POC Glucose (mg/dL) 234 H Random Glucose 195 H Lactic Acid Calcium 7.2 L Phosphorus 2.3 L Magnesium 1.5 L Total Bilirubin 0.3 AST 22 ALT 41 Alkaline Phosphatase 44 Total Protein 4.9 L Albumin 2.6 L Globulin 2.3 Albumin/Globulin Ratio 1.1 Triglycerides 149 Cholesterol 96 LDL Cholesterol Direct 53 HDL Cholesterol 19 L Lipase Free T4 1.29 TSH 3rd Generation 1.34 Blood Type Blood Type Confirm Antibody Screen 11/01/17 11/01/17 11/01/17 03:39 03:39 04:56 WBC 11.7 H RBC 3.26 L Hgb 9.6 L Hct 27.6 L MCV 84.5 MCH 29.4 MCHC 34.8 RDW 14.0 Plt Count 328 D MPV 6.1 L Neut % (Auto) 81.4 H Lymph % (Auto) 12.2 L [place] % (Auto) 6.1 Eos % (Auto) 0.0 Baso % (Auto) 0.3 Neut # (Auto) 9.5 H Lymph # (Auto) 1.4 [place] # (Auto) 0.7 Eos # (Auto) 0.0 Baso # (Auto) 0.0 Puncture Site Rr pCO2 35 pO2 147 H HCO3 28.1 H ABG pH 7.50 H ABG Total CO2 28.4 H ABG O2 Saturation 98.9 H ABG Base Excess 4.0 H ABG Hemoglobin 9.7 L ABG Carboxyhemoglobin 1.6 H POC ABG HHb (Measured) 1.1 ABG Methemoglobin 1.0 [place] Test Pos A-a O2 Difference 94.0 Respiratory Index 0.6 Hgb O2 Saturation 96.4 Vent Mode Prvc Mechanical Rate 20 FiO2 40.0 Tidal Volume 500 PEEP 5 Sodium Potassium Chloride Carbon Dioxide Anion Gap BUN Creatinine Est GFR ( Amer) Est GFR (Non-Af Amer) POC Glucose (mg/dL) Random Glucose Lactic Acid 1.0 Calcium Phosphorus Magnesium Total Bilirubin AST ALT Alkaline Phosphatase Total Protein Albumin Globulin Albumin/Globulin Ratio Triglycerides Cholesterol LDL Cholesterol Direct HDL Cholesterol Lipase Free T4 TSH 3rd Generation Blood Type Blood Type Confirm Antibody Screen 11/01/17 06:12 WBC RBC Hgb Hct MCV MCH MCHC RDW Plt Count MPV Neut % (Auto) Lymph % (Auto) [place] % (Auto) Eos % (Auto) Baso % (Auto) Neut # (Auto) Lymph # (Auto) [place] # (Auto) Eos # (Auto) Baso # (Auto) Puncture Site pCO2 pO2 HCO3 ABG pH ABG Total CO2 ABG O2 Saturation ABG Base Excess ABG Hemoglobin ABG Carboxyhemoglobin POC ABG HHb (Measured) ABG Methemoglobin [place] Test A-a O2 Difference Respiratory Index Hgb O2 Saturation Vent Mode Mechanical Rate FiO2 Tidal Volume PEEP Sodium Potassium Chloride Carbon Dioxide Anion Gap BUN Creatinine Est GFR ( Amer) Est GFR (Non-Af Amer) POC Glucose (mg/dL) 196 H Random Glucose Lactic Acid Calcium Phosphorus Magnesium Total Bilirubin AST ALT Alkaline Phosphatase Total Protein Albumin Globulin Albumin/Globulin Ratio Triglycerides Cholesterol LDL Cholesterol Direct HDL Cholesterol Lipase Free T4 TSH 3rd Generation Blood Type Blood Type Confirm Antibody Screen Fingerstick Blood Sugar Results: 234 Critical Care Progress Note - Nutrition Nutrition: Nutrition Category Date Time Status NPO Diet [DIET] Diets 10/31/17 Breakfast Active Assessment/Plan - Assessment and Plan (Free Text) Assessment: 51 y/o male intubated for airway protection during EGD. -CT abd/pelvis pending -Hypoxic respiratory failure: continue ventilation to keep spo2 >92, CPAP today -Gi bleed: likely mass/tumor bleeding hb/hct stable -if no procedure anticiapted, will extubate patient --keep NPO -continue protonix -continue scds -empirically on abx -obtain CT/abd/pelvis r/o free air/mass d/w ICU team cc time 35 minutes - Date & Time Date: 11/01/17 Time: 08:02
[2017-11-01] MEDS ORDERED: Midazolam 50 mg/10 ml 100 MG in Dextrose 5% In Water 80 ML IV PRN (09:15)
[2017-11-01] MEDS ORDERED: Iohexol 240 (50 ml) PO ONE (09:30)
[2017-11-01] MEDS: Saccharomyces Boulardi 250 mg Cap PO SCH (09:31)
--- NOTE | 2017-11-01 10:20 | RAD ---
HISTORY: intubated, sob COMPARISON: Chest x-ray performed 10/31/17 TECHNIQUE: Chest, one view. FINDINGS: Endotracheal tube terminates approximately 3 cm above the gopal. LUNGS: No focal consolidation. Please note that chest x-ray has limited sensitivity for the detection of pulmonary masses. PLEURA: No significant pleural effusion identified. No definite pneumothorax . CARDIOVASCULAR: Heart size appears within normal limits. OSSEOUS STRUCTURES: Degenerative changes. VISUALIZED UPPER ABDOMEN: Unremarkable. OTHER FINDINGS: None. IMPRESSION: Endotracheal tube.
[2017-11-01 10:28] LABS: BASO # 0.1 K/uL (0.0-0.2); BASO % 0.6 % (0.0-2.0); EOS % 0.3 % (0.0-4.0); HEMOGLOBIN 9.5 g/dL (12.0-18.0); LYMPH # 2.5 K/uL (1.0-4.3); LYMPH % 19.4 % (20.0-40.0); MEAN CELL VOLUME 84.8 fL (80.0-94.0); MEAN CORPUSCULAR HEMOGLOBIN 29.1 pg (27.0-31.0); MEAN CORPUSCULAR HGB CONC 34.3 g/dL (33.0-37.0); MEAN PLATELET VOLUME 6.1 fL (7.2-11.7); MONO # 1.2 K/uL (0.0-0.8); MONO % 9.5 % (0.0-10.0); NEUT # 8.9 K/uL (1.8-7.0); NEUT % 70.2 % (50.0-75.0); RBC 3.28 Mil/uL (4.40-5.90); RED CELL DISTRIBUTION WIDTH 14.3 % (11.5-14.5); WHITE BLOOD COUNT 12.7 K/uL (4.8-10.8)
[2017-11-01 11:14] LABS: ALB/GLOB RATIO 1.1 (1.0-2.1); ALBUMIN 2.7 g/dL (3.5-5.0); ALT/SGPT 45 U/L (21-72); AST/SGOT 21 U/L (17-59); BLOOD UREA NITROGEN 16 mg/dL (9-20); CALCIUM 7.4 mg/dl (8.6-10.4); GFR AFRICAN-AMERICAN > 60; GFR NON-AFRICAN AMERICAN > 60; MAGNESIUM 1.9 mg/dL (1.6-2.3)
[2017-11-01] MEDS ORDERED: Iodixanol 320 MG/ML 100 ML BOTTLE IV ONE (11:15)
[2017-11-01] MEDS: Potassium Chloride 20 mEq/15 ml LIQ UD PO SCH ×4 (11:29→22:47)
--- NOTE | 2017-11-01 13:00 | CT ---
PROCEDURE: CT Abdomen and Pelvis with oral and IV contrast. HISTORY: r/o mass COMPARISON: None available. TECHNIQUE: Contiguous axial images of the abdomen and pelvis. Oral and IV contrast was administered. Coronal and Sagittal reformats generated and reviewed. Contrast dose: 100 mL Visipaque Radiation dose: Total exam DLP = 1211.14 mGy-cm. This CT exam was performed using one or more of the following dose reduction techniques: Automated exposure control, adjustment of the mA and/or kV according to patient size, and/or use of iterative reconstruction technique. FINDINGS: NG tube extends to the stomach. LOWER THORAX: Bibasilar dependent consolidations. No visible pleural effusion or pneumothorax. LIVER: Unremarkable. GALLBLADDER AND BILE DUCTS: Unremarkable. PANCREAS: Unremarkable. SPLEEN: Unremarkable. ADRENALS: Unremarkable. KIDNEYS AND URETERS: The kidneys enhance symmetrically. No hydronephrosis or obstructing renal calculus. BLADDER: Marcus catheter within a decompressed urinary bladder which contains air, presumably due to recent instrumentation ; correlate clinically. REPRODUCTIVE: Unremarkable. APPENDIX: The appendix appears within normal limits of caliber. No secondary signs of acute appendicitis. BOWEL: The stomach is nondistended. Heterogeneous abnormal appearance at the level of the gastric antrum/ proximal duodenum, worrisome for malignant neoplasm. Lack of oral contrast this region precludes adequate evaluation. No evidence of bowel obstruction. PERITONEUM: No significant free fluid. No definite free air. LYMPH NODES: No bulky lymphadenopathy identified. VASCULATURE: No aortic aneurysm. BONES: T12 compression fracture deformity. OTHER FINDINGS: None. IMPRESSION: Heterogeneous abnormal appearance at the level of the gastric antrum/ proximal duodenum, worrisome for malignant neoplasm. Lack of oral contrast this region precludes adequate evaluation. T12 compression fracture deformity, age indeterminate. Marcus catheter within a decompressed urinary bladder which contains air, presumably due to recent instrumentation ; correlate clinically. Additional findings as above.
--- NOTE | 2017-11-01 15:02 | CP.PCM.PN ---
<Nayeli Lopes - Last Filed: 11/01/17 15:02> Subjective - Date & Time of Evaluation Date of Evaluation: 11/01/17 Time of Evaluation: 11:00 - Subjective Subjective: GI Fellow PGY4 Progress Note Pt seen and evaluated at bedside, pt still intubated but able to follow commands and alert awake. No GI bleeding overnight per nursing. Hgb and vitals stable. No IR intervention overnight. ROS: A 12pt ROS was unable to be obtained due to intubation Objective - Vital Signs/Intake and Output Vital Signs (last 24 hours): Temp Pulse Resp BP Pulse Ox 98.3 F 105 H 24 114/77 99 11/01/17 12:00 11/01/17 14:10 11/01/17 14:10 11/01/17 14:10 11/01/17 14:10 Intake and Output: 11/01/17 11/01/17 06:59 18:59 Intake Total 1500.8 2637.4 Output Total 1480 330 Balance 20.8 2307.4 - Medications Medications: Current Medications Dextrose (Dextrose 50%) 0 ml IV STAT PRN; Protocol PRN Reason: Hypoglycemia Protocol Dextrose (Glutose 15) 0 gm PO ONCE PRN; Protocol PRN Reason: Hypoglycemia Protocol Docusate Sodium (Colace) 100 mg PO BID PRN PRN Reason: Constipation Glucagon (Glucagen Diagnostic Kit) 0 mg IM STAT PRN; Protocol PRN Reason: Hypoglycemia Protocol Pantoprazole Sodium 80 mg/ (Sodium Chloride) 100 mls @ 10 mls/hr IVP .Q10H [facility] PRN Reason: 8 MG/HR Last Admin: 11/01/17 12:30 Dose: Not Given Vancomycin/Sodium Chloride (Vancomycin 1 Gm/Ns 200 Ml) 1 gm in 200 mls @ 166.7 mls/hr IVPB Q24H [facility] Stop: 11/05/17 07:01 Last Admin: 11/01/17 06:37 Dose: 166.7 mls/hr Piperacillin Sod/Tazobactam Sod (Zosyn 3.375 Gm Iv Premix) 3.375 gm in 50 mls @ 100 mls/hr IVPB Q6H [facility] Last Admin: 11/01/17 13:27 Dose: 100 mls/hr Dextrose (Dextrose 5% In Water 1000 Ml) 1,000 mls @ 0 mls/hr IV .Q0M PRN; Protocol; Per Protocol PRN Reason: Hypoglycemia Protocol Dextrose/Sodium Chloride (Dextrose 5%/0.9% Ns 1000 Ml) 1,000 mls @ 100 mls/hr IV .Q10H [facility] Last Admin: 11/01/17 13:05 Dose: Not Given Fentanyl Citrate 2,500 mcg/ (Sodium Chloride) 250 mls @ 11.79 mls/hr IV .[id number] [facility]; 2 MCG/KG/HR PRN Reason: Protocol Last Titration: 11/01/17 13:15 Dose: 0 mcg/kg/hr, 0 mls/hr Midazolam HCl 100 mg/ Dextrose 100 mls @ 1.17 mls/hr IV .Q24H PRN; Protocol; 0.02 MG/KG/HR PRN Reason: FOLLOW TITRATION PROTOCOL Last Titration: 11/01/17 13:15 Dose: 0 mg/kg/hr, 0 mls/hr Insulin Human Regular (Novolin R) 0 unit SC Q6H [facility] PRN Reason: Protocol Last Admin: 11/01/17 12:50 Dose: Not Given Lorazepam (Ativan) 4 mg IVP Q2H PRN PRN Reason: Sedation Last Admin: 11/01/17 08:26 Dose: 4 mg Metoclopramide HCl (Reglan) 10 mg IVP DAILY [facility] Stop: 11/03/17 16:01 Morphine Sulfate (Morphine) 2 mg IVP Q6H PRN PRN Reason: Pain, severe (8-10) Morphine Sulfate (Morphine) 1 mg IVP Q6H PRN PRN Reason: Pain, moderate (4-7) Potassium Chloride (Potassium Chloride Oral Soln) 40 meq PO Q4H [facility] Stop: 11/01/17 23:31 Last Admin: 11/01/17 11:29 Dose: 40 meq Saccharomyces Boulardii (Florastor) 250 mg PO BID [facility] Last Admin: 11/01/17 09:31 Dose: Not Given - Labs Labs: 11/01/17 10:22 11/01/17 10:22 PT 12.1 SECONDS (9.7-12.2) 10/31/17 01:55 INR 1.1 10/31/17 01:55 APTT 35 SECONDS (21-34) H 10/31/17 01:55 - Constitutional Appears: Non-toxic, No Acute Distress - Head Exam Head Exam: ATRAUMATIC, NORMAL INSPECTION, NORMOCEPHALIC - Eye Exam Eye Exam: EOMI, Normal appearance, PERRL Pupil Exam: PERRL - ENT Exam ENT Exam: Mucous Membranes Dry Additional comments: ETT - Neck Exam Neck Exam: Full ROM - Respiratory Exam Respiratory Exam: Decreased Breath Sounds, Respiratory Distress - Cardiovascular Exam Cardiovascular Exam: Tachycardia - GI/Abdominal Exam GI & Abdominal Exam: Soft, Normal Bowel Sounds. absent: Distended, Guarding, Tenderness - Extremities Exam Extremities Exam: Full ROM - Neurological Exam Neurological Exam: Alert, Awake - Psychiatric Exam Psychiatric exam: Normal Affect, Normal Mood - Skin Skin Exam: Dry, Intact, Normal Color, Warm Assessment and Plan - Assessment and Plan (Free Text) Assessment: Patient is a 51yo Faro[place] male with PMHx significant for DM, T12 compression fracture who presented to the ED with abdominal pain, nausea and vomiting. Drop in Hgb lead to an urgent EGD 10/31/17. 1. GI Bleed, Hematemesis 2. Anemia 3. Duodenal ulcer with adherent clot and visible vessels s/p epi and clips 4. Abdominal wall abscess 5. Intubation for airway protection 6. Hypokalemia Plan: -Continue supportive acre with IVF hydration and airway protection -s/p EGD for GI bleed with duodenal bulb large cratered necrotic ulcer with large adherent clot and visible vessel s/p epinephrine placed around the clot with clips -Large amount of blood in the entire stomach which suctioned and clots removed with roberts net, hemostasis was achieved but high risk for recurrent bleed, ulcer biopsies taken to rule out carcinoma -No further GI bleeding at this time with stable Hgb, monitor and transfuse as needed -Continue PPI -NPO -Plan for second look EGD Friday -IV Reglan daily -s/p abdominal wall I&D -Continue abx -Plan to extubate per ICU team -Will continue to follow closely <Honey Estrada MD - Last Filed: 11/01/17 17:54> Objective - Vital Signs/Intake and Output Vital Signs (last 24 hours): Temp Pulse Resp BP Pulse Ox 98.1 F 88 14 113/75 100 11/01/17 16:00 11/01/17 17:00 11/01/17 17:00 11/01/17 16:09 11/01/17 17:00 Intake and Output: 11/01/17 11/01/17 06:59 18:59 Intake Total 1500.8 3159.9 Output Total 1480 480 Balance 20.8 2679.9 - Medications Medications: Current Medications Pantoprazole Sodium 80 mg/ (Sodium Chloride) 100 mls @ 10 mls/hr IVP .Q10H [facility] PRN Reason: 8 MG/HR Last Admin: 11/01/17 15:46 Dose: 10 mls/hr Piperacillin Sod/Tazobactam Sod (Zosyn 3.375 Gm Iv Premix) 3.375 gm in 50 mls @ 100 mls/hr IVPB Q6H [facility] Stop: 11/01/17 20:29 Last Admin: 11/01/17 13:27 Dose: 100 mls/hr Dextrose/Sodium Chloride (Dextrose 5%/0.9% Ns 1000 Ml) 1,000 mls @ 100 mls/hr IV .Q10H [facility] Last Admin: 11/01/17 13:05 Dose: Not Given Piperacillin Sod/Tazobactam (Sod 3.375 gm/ Sodium Chloride) 100 mls @ 200 mls/ hr IVPB Q6H [facility] Insulin Human Regular (Novolin R) 0 unit SC Q6H [facility] PRN Reason: Protocol Last Admin: 11/01/17 12:50 Dose: Not Given Metoclopramide HCl (Reglan) 10 mg IVP DAILY [facility] Stop: 11/03/17 16:01 Last Admin: 11/01/17 15:53 Dose: 10 mg Morphine Sulfate (Morphine) 1 mg IVP Q6H PRN PRN Reason: Pain, severe (8-10) Morphine Sulfate (Morphine) 1 mg IVP Q6H PRN PRN Reason: Pain, moderate (4-7) Potassium Chloride (Potassium Chloride Oral Soln) 40 meq PO Q4H [facility] Stop: 11/01/17 23:31 Last Admin: 11/01/17 15:45 Dose: 40 meq - Labs Labs: 11/01/17 10:22 11/01/17 10:22 PT 12.1 SECONDS (9.7-12.2) 10/31/17 01:55 INR 1.1 10/31/17 01:55 APTT 35 SECONDS (21-34) H 10/31/17 01:55 Attending/Attestation - Attestation I have personally seen and examined this patient.: Yes I have fully participated in the care of the patient.: Yes I have reviewed all pertinent clinical information, including history, physical exam and plan: Yes Notes (Text): 11/01/17 17:51 Patient seen at bedside in MICU earlier today. In a nutshell this is a 51 yr old Faro[place] male with PMHx significant for DM, T12 compression fracture who presented to the ED last night with abdominal pain, nausea and hematemesis. Drop in Hb mandated urgent EGD. Post EGD findings were (please see chart for detailed report)- Duodenal bulb large cratered necrotic ulcer circumfernetial with large adherent clot and visible vessel. Epinephrine was placed around the clot with clips. There was hematin and large amount of blood in the entire stomach which was suctioned and clots removed with roberts net. Hemostasis was achieved but high risk for recurrent bleed. Ulcer biopsies taken to rule out carcinoma. * Discussed with IR to embolize GDA if bleeds again * Central line and cbc q daily * Keep Hct above 21 * Continue PPI gtt * Surgical consult for cratered duodenal bulb ulcer- high risk for perforation * Give erythromycin today and tomorrow for repeat EGD and increase motility for clot passage. * NPO * Second look endoscopy on Friday as adherent clot was not removed * Close monitoring * Supplement electrolytes * No s/s of cirrhosis or portal HTN Will follow closely . Above discussed with Printing Engineer
--- NOTE | 2017-11-01 17:22 | CP.PCM.PN ---
Subjective - Date & Time of Evaluation Date of Evaluation: 11/01/17 Time of Evaluation: 17:00 - Subjective Subjective: Hospitalist Progress Note Patient was seen and examined at 5:00 PM ICU Bed #2 11/01/17 with the assistance of Son Sher [phone] 51 year old male who was admitted on 10/30/17 with complaints of epigastric pain ( which has been going on for may years which he attributed to his history of vertebral compression fracture in 2016 for which he takes percocet at home) that has worsened over the past 3 days. This was followed by multiple bouts of hematemesis and hematochezia. He was admitted to ICU for further treatment and evaluation of acute blood loss anemia likely secondary to upper GI source.Please see individual Assessment and Plans below for further details Currently upon FULL ROS Complains of epigastric pain which is better than when he came in NO N/V (has NGT tube in place producing dark black material) Mid Back pain (chronic in nature): would like some pain medication as he states that it is worse right now and preventing him from laying flat or still and made a bit better by laying on his side. NO chest pain NO SOB NO other complaints Exam: General: AAOx3, Patient appears to be very uncomfortable and points to his mid thoracic back region HEENT: EOMI, PERRLA, Mucous membranes are dry, NO cervical lymphadenopathy, NO thyromegaly, Pharynx without erythema/exudate, Nasal turbinates are nonerythematous and dry Cardio: NS1 and NS2, NO M/R/G, Tachycardic Resp: CTA B/L, NO R/R/W GI: BS are reduced in all 4 quadrants, Tenderness to palpation in upper epigrastric area without rebound/with slight guarding, Liver and Spleen not palpated at this time Ext: Pulses are strong and equal, Capillary Refill is 2 seconds, NO edema Neuro: CN II through XII are grossly intact Skin: RLQ Abdomen S/P I&D by Surgery Team 10/31/17. Slightly tender to palpation. NO drainage noted. Assessment and Plan: 1). Acute Blood Loss Anemia Likely Secondary to Upper GI Bleed Secondary to Dudenal Bulb Cratered Nectrotic Ulcer S/P Upper EGD #1 on 10/31/[address] Payne with EGD #2 planned for Friday11/03/17 During EGD #1 10/31/17 patient was intubated and then was extubated by ICU Team 07/09 F/U EGD Bx pathology report Protonix 8 mg/hr NGT NPO Transfused 1 unit PRBC since admission CT Abdomen/Pelvis 11/01/17: heterogenous abnormal appearance at the level of the gastric antrum/proximal duodenum, worrisome for malignant neoplasm. Await EGD #1 Bx pathology report to determine if further imaging is needed for staging purposes 2). Right Abdominal Wall Cellulitis/Abscess Stated that he had a masquite bite roughly 3 days prior to admission and then since that time area got bigger and redder and painful Vancomycin 1 gm IV 1x/day given 10/31/17 Zosyn 3.375 gm IV Q6H currently Surgery Arago's Team performed bedside I&D on 10/31/17 3). Hypokalemia Repleted by ICU Team: KCl 20 mEQ IV and KPhos 15 mmol IV x 1 dose 4). Hx Vertebral Fracture 2016 Morphine 1 gm IV Q6H PRN Moderate Pain Morphine 2 gm IV Q6H PRN Severe Pain 5). Hx DM 2 On Metformin at home which will be held at this time RISS Q6H with Accuchecks for now as he is NPO TSH, T4, Lipid Panel are WNL (except for HDL which is low at 19) F/U HgBA1C 6). Prophylaxis Protonix 8 mg/hr Reglan 10 mg IV 1x/day with STOP date of 11/03/17 NO anticoagulation considering suspected Upper GI Bleed NPO Spoke with Son Sher [phone] and he was updated as to the above. Costa Travis D.O. Objective - Vital Signs/Intake and Output Vital Signs (last 24 hours): Temp Pulse Resp BP Pulse Ox 98.1 F 88 14 113/75 100 11/01/17 16:00 11/01/17 17:00 11/01/17 17:00 11/01/17 16:09 11/01/17 17:00 Intake and Output: 11/01/17 11/01/17 06:59 18:59 Intake Total 1500.8 3159.9 Output Total 1480 480 Balance 20.8 2679.9 - Medications Medications: Current Medications Pantoprazole Sodium 80 mg/ (Sodium Chloride) 100 mls @ 10 mls/hr IVP .Q10H [facility] PRN Reason: 8 MG/HR Last Admin: 11/01/17 15:46 Dose: 10 mls/hr Piperacillin Sod/Tazobactam Sod (Zosyn 3.375 Gm Iv Premix) 3.375 gm in 50 mls @ 100 mls/hr IVPB Q6H [facility] Stop: 11/01/17 20:29 Last Admin: 11/01/17 13:27 Dose: 100 mls/hr Dextrose/Sodium Chloride (Dextrose 5%/0.9% Ns 1000 Ml) 1,000 mls @ 100 mls/hr IV .Q10H [facility] Last Admin: 11/01/17 13:05 Dose: Not Given Piperacillin Sod/Tazobactam (Sod 3.375 gm/ Sodium Chloride) 100 mls @ 200 mls/ hr IVPB Q6H [facility] Insulin Human Regular (Novolin R) 0 unit SC Q6H [facility] PRN Reason: Protocol Last Admin: 11/01/17 12:50 Dose: Not Given Metoclopramide HCl (Reglan) 10 mg IVP DAILY [facility] Stop: 11/03/17 16:01 Last Admin: 11/01/17 15:53 Dose: 10 mg Potassium Chloride (Potassium Chloride Oral Soln) 40 meq PO Q4H [facility] Stop: 11/01/17 23:31 Last Admin: 11/01/17 15:45 Dose: 40 meq - Labs Labs: 11/01/17 10:22 11/01/17 10:22 PT 12.1 SECONDS (9.7-12.2) 10/31/17 01:55 INR 1.1 10/31/17 01:55 APTT 35 SECONDS (21-34) H 10/31/17 01:55
--- NOTE | 2017-11-01 18:43 | CP.PCM.PN ---
Subjective - Date & Time of Evaluation Date of Evaluation: 11/01/17 Time of Evaluation: 05:00 - Subjective Subjective: General Surgery Note for Dr. Tai Patient seen and examined at bedside. No acute event overnight. Patient is s/p bedside I&D POD#1. He states pain is controlled. He is NPO requesting water. Patient had EGD with showed clot and ulcer in stomach and duodenum respectively. Objective - Vital Signs/Intake and Output Vital Signs (last 24 hours): Temp Pulse Resp BP Pulse Ox 98.1 F 88 14 113/75 100 11/01/17 16:00 11/01/17 17:00 11/01/17 17:00 11/01/17 16:09 11/01/17 17:00 Intake and Output: 11/01/17 11/01/17 06:59 18:59 Intake Total 1500.8 3159.9 Output Total 1480 480 Balance 20.8 2679.9 - Medications Medications: Current Medications Pantoprazole Sodium 80 mg/ (Sodium Chloride) 100 mls @ 10 mls/hr IVP .Q10H [facility] PRN Reason: 8 MG/HR Last Admin: 11/01/17 15:46 Dose: 10 mls/hr Piperacillin Sod/Tazobactam Sod (Zosyn 3.375 Gm Iv Premix) 3.375 gm in 50 mls @ 100 mls/hr IVPB Q6H [facility] Stop: 11/01/17 20:29 Last Admin: 11/01/17 13:27 Dose: 100 mls/hr Dextrose/Sodium Chloride (Dextrose 5%/0.9% Ns 1000 Ml) 1,000 mls @ 100 mls/hr IV .Q10H [facility] Last Admin: 11/01/17 13:05 Dose: Not Given Piperacillin Sod/Tazobactam (Sod 3.375 gm/ Sodium Chloride) 100 mls @ 200 mls/ hr IVPB Q6H [facility] Insulin Human Regular (Novolin R) 0 unit SC Q6H [facility] PRN Reason: Protocol Last Admin: 11/01/17 18:12 Dose: Not Given Metoclopramide HCl (Reglan) 10 mg IVP DAILY [facility] Stop: 11/03/17 16:01 Last Admin: 11/01/17 15:53 Dose: 10 mg Morphine Sulfate (Morphine) 1 mg IVP Q6H PRN PRN Reason: Pain, severe (8-10) Morphine Sulfate (Morphine) 1 mg IVP Q6H PRN PRN Reason: Pain, moderate (4-7) Potassium Chloride (Potassium Chloride Oral Soln) 40 meq PO Q4H [facility] Stop: 11/01/17 23:31 Last Admin: 11/01/17 18:32 Dose: 40 meq - Labs Labs: 11/01/17 10:22 11/01/17 10:22 PT 12.1 SECONDS (9.7-12.2) 10/31/17 01:55 INR 1.1 10/31/17 01:55 APTT 35 SECONDS (21-34) H 10/31/17 01:55 - Constitutional Appears: No Acute Distress - ENT Exam ENT Exam: Mucous Membranes Moist Additional comments: receiving breathing treatment - Respiratory Exam Respiratory Exam: NORMAL BREATHING PATTERN - Cardiovascular Exam Cardiovascular Exam: REGULAR RHYTHM - GI/Abdominal Exam GI & Abdominal Exam: Soft. absent: Distended, Firm, Guarding, Rigid, Tenderness , Normal Bowel Sounds, Rebound Additional comments: dressing dry and intact - Neurological Exam Neurological Exam: Alert, Awake, Oriented x3 - Psychiatric Exam Psychiatric exam: Flat Affect - Skin Skin Exam: Dry, Warm Assessment and Plan - Assessment and Plan (Free Text) Plan: 51 M s/p bedsie I&D fro abdominal abscess found to have duodenal crater and stomach clots on EGD -NPO -Continue protonix drip -IV fluids -IV abx -Analgesics/Anti-emetics PRN -f/u pathology -Will Discuss with Dr. Abida Morris PGY1
[2017-11-02] MEDS: (Novolin R) Insulin Human Regular 100 units/ml vial SC SCH ×4 (00:39→18:51)
[2017-11-02 00:53] LABS: BASO # 0.1 K/uL (0.0-0.2); BASO % 0.7 % (0.0-2.0); EOS # 0.1 K/uL (0.0-0.7); EOS % 0.9 % (0.0-4.0); HEMOGLOBIN 9.7 g/dL (12.0-18.0); LYMPH # 2.2 K/uL (1.0-4.3); LYMPH % 20.7 % (20.0-40.0); MEAN CELL VOLUME 84.9 fL (80.0-94.0); MEAN CORPUSCULAR HEMOGLOBIN 29.7 pg (27.0-31.0); MEAN PLATELET VOLUME 5.8 fL (7.2-11.7); MONO # 0.8 K/uL (0.0-0.8); MONO % 7.4 % (0.0-10.0); NEUT # 7.6 K/uL (1.8-7.0); NEUT % 70.3 % (50.0-75.0); RBC 3.26 Mil/uL (4.40-5.90); RED CELL DISTRIBUTION WIDTH 14.3 % (11.5-14.5); WHITE BLOOD COUNT 10.8 K/uL (4.8-10.8)
[2017-11-02 01:10] LABS: ALBUMIN 2.7 g/dL (3.5-5.0); ALT/SGPT 55 U/L (21-72); AST/SGOT 34 U/L (17-59); BLOOD UREA NITROGEN 8 mg/dL (9-20); CALCIUM 7.1 mg/dl (8.6-10.4); GFR AFRICAN-AMERICAN > 60; GFR NON-AFRICAN AMERICAN > 60; MAGNESIUM 1.7 mg/dL (1.6-2.3)
[2017-11-02] MEDS: Piperacillin/Tazobact 3.375 GM in Sodium Chloride 0.9% 100 ML IVPB SCH ×4 (01:35→20:26)
[2017-11-02] MEDS: Pantoprazole 80 MG in Sodium Chloride 0.9% 100 ML IVP SCH ×4 (01:38→14:52)
[2017-11-02] MEDS ORDERED: Potassium Chloride 20 mEq/15 ml LIQ UD PO ONE (08:15)
--- NOTE | 2017-11-02 08:31 | CP.PCM.PN ---
Subjective - Date & Time of Evaluation Date of Evaluation: 11/02/17 Time of Evaluation: 08:27 - Subjective Subjective: Patient had no acute events overnight. Hb stable, no hypotension, no fevers Objective - Vital Signs/Intake and Output Vital Signs (last 24 hours): Temp Pulse Resp BP Pulse Ox 98 F 84 14 131/83 99 11/02/17 04:00 11/02/17 07:09 11/02/17 07:09 11/02/17 07:09 11/02/17 07:09 Intake and Output: 11/02/17 11/02/17 06:59 18:59 Intake Total 1370 110 Output Total 2000 Balance -630 110 - Medications Medications: Current Medications Acetaminophen (Tylenol 325 Mg Supp) 325 mg RI Q6 PRN PRN Reason: Pain, moderate (4-7) Pantoprazole Sodium 80 mg/ (Sodium Chloride) 100 mls @ 10 mls/hr IVP .Q10H [facility] PRN Reason: 8 MG/HR Last Admin: 11/02/17 01:39 Dose: 10 mls/hr Piperacillin Sod/Tazobactam (Sod 3.375 gm/ Sodium Chloride) 100 mls @ 200 mls/ hr IVPB Q6H [facility] Last Admin: 11/02/17 07:07 Dose: 200 mls/hr Dextrose/Sodium Chloride (Dextrose 5%/0.9% Ns 1000 Ml) 1,000 mls @ 75 mls/hr IV .[id number] [facility] Vancomycin HCl 1,000 mg/ (Sodium Chloride) 250 mls @ 166.6 mls/hr IVPB Q12H [facility] Potassium Chloride (Potassium Chloride 10 Meq/100 Ml) 10 meq in 100 mls @ 100 mls/hr IVPB ONCE ONE Stop: 11/02/17 09:11 Insulin Human Regular (Novolin R) 0 unit SC Q6H [facility] PRN Reason: Protocol Last Admin: 11/02/17 06:24 Dose: Not Given Metoclopramide HCl (Reglan) 10 mg IVP DAILY [facility] Stop: 11/03/17 16:01 Last Admin: 11/01/17 15:53 Dose: 10 mg Potassium Chloride (Potassium Chloride Oral Soln) 40 meq PO ONCE ONE Stop: 11/02/17 08:16 - Labs Labs: 11/02/17 00:50 11/02/17 00:50 PT 12.1 SECONDS (9.7-12.2) 10/31/17 01:55 INR 1.1 10/31/17 01:55 APTT 35 SECONDS (21-34) H 10/31/17 01:55 - Constitutional Appears: Well - Head Exam Head Exam: ATRAUMATIC, NORMAL INSPECTION, NORMOCEPHALIC - Respiratory Exam Respiratory Exam: Clear to Ausculation Bilateral, NORMAL BREATHING PATTERN - GI/Abdominal Exam GI & Abdominal Exam: Soft, Normal Bowel Sounds - Extremities Exam Extremities Exam: Normal Inspection - Back Exam Additional comments: right femoral line removed and pressure held, no bleeding, clean dressing placed Assessment and Plan - Assessment and Plan (Free Text) Assessment: Upper Gi bleed: hb stable, continue PPI ggt, -right abdominal wall abscess: GPC, I&D, continue vanco, will d/c zosyn, f/u culture and sensitivity, MRSA screen neg -duodenal mass: suspect cancer: surgery consult -DVT ppx scds -pud rx protonix ggt. -IV hydration -Patient remains hemodynamically stable. Continue to monitor cbc q8hrs d/w femoral line no peña -OOB to chair
[2017-11-02] MEDS ORDERED: Magnesium Sulfate 1 gm in D5W 1 GM/100 ML BAG IVPB ONE (08:32)
[2017-11-02] MEDS ORDERED: Potassium Phosphate 15 MMOLE in Sodium Chloride 0.9% 250 ML IVPB ONE (09:00)
[2017-11-02] MEDS: Dextrose 5%/0.9% NS 1,000 ML IV SCH (09:02)
--- NOTE | 2017-11-02 09:08 | CP.PCM.PN ---
<Nayeli Lopes - Last Filed: 11/02/17 17:25> Subjective - Date & Time of Evaluation Date of Evaluation: 11/02/17 Time of Evaluation: 11:00 - Subjective Subjective: GI Fellow PGY4 Progress Note Pt seen and evaluated at bedside, pt extubated yesterday and now alert and awake. No GI bleeding overnight per nursing. Hgb and vitals stable. No IR intervention overnight. ROS: A 12pt ROS was negative except as above. Objective - Vital Signs/Intake and Output Vital Signs (last 24 hours): Temp Pulse Resp BP Pulse Ox 98 F 84 14 131/83 99 11/02/17 04:00 11/02/17 07:09 11/02/17 07:09 11/02/17 07:09 11/02/17 07:09 Intake and Output: 11/02/17 11/02/17 06:59 18:59 Intake Total 1370 110 Output Total 2000 Balance -630 110 - Medications Medications: Current Medications Acetaminophen (Tylenol 325 Mg Supp) 325 mg [place] Q6 PRN PRN Reason: Pain, moderate (4-7) Pantoprazole Sodium 80 mg/ (Sodium Chloride) 100 mls @ 10 mls/hr IVP .Q10H [facility] PRN Reason: 8 MG/HR Last Admin: 11/02/17 08:33 Dose: Not Given Piperacillin Sod/Tazobactam (Sod 3.375 gm/ Sodium Chloride) 100 mls @ 200 mls/ hr IVPB Q6H [facility] Last Admin: 11/02/17 07:07 Dose: 200 mls/hr Dextrose/Sodium Chloride (Dextrose 5%/0.9% Ns 1000 Ml) 1,000 mls @ 75 mls/hr IV .[id number] [facility] Vancomycin/Sodium Chloride (Vancomycin 1 Gm/Ns 200 Ml) 1 gm in 200 mls @ 166.6 mls/hr IVPB Q12H [facility] Stop: 11/07/17 09:01 Potassium Chloride (Potassium Chloride 10 Meq/100 Ml) 10 meq in 100 mls @ 100 mls/hr IVPB ONCE ONE Stop: 11/02/17 09:11 Potassium Phosphate 15 mmole/ (Sodium Chloride) 255 mls @ 42.5 mls/hr IVPB ONCE ONE Stop: 11/02/17 14:59 Insulin Human Regular (Novolin R) 0 unit SC Q6H [facility] PRN Reason: Protocol Last Admin: 11/02/17 06:24 Dose: Not Given Metoclopramide HCl (Reglan) 10 mg IVP DAILY [facility] Stop: 11/03/17 16:01 Last Admin: 11/01/17 15:53 Dose: 10 mg - Labs Labs: 11/02/17 00:50 11/02/17 00:50 PT 12.1 SECONDS (9.7-12.2) 10/31/17 01:55 INR 1.1 10/31/17 01:55 APTT 35 SECONDS (21-34) H 10/31/17 01:55 - Constitutional Appears: Non-toxic, No Acute Distress - Head Exam Head Exam: ATRAUMATIC, NORMAL INSPECTION, NORMOCEPHALIC - Eye Exam Eye Exam: EOMI, Normal appearance, PERRL Pupil Exam: PERRL - ENT Exam ENT Exam: Mucous Membranes Dry - Neck Exam Neck Exam: Full ROM - Respiratory Exam Respiratory Exam: Decreased Breath Sounds, Respiratory Distress - Cardiovascular Exam Cardiovascular Exam: Tachycardia - GI/Abdominal Exam GI & Abdominal Exam: Soft, Tenderness, Normal Bowel Sounds. absent: Distended, Guarding - Neurological Exam Neurological Exam: Alert, Awake - Psychiatric Exam Psychiatric exam: Normal Affect, Normal Mood - Skin Skin Exam: Dry, Intact, Normal Color, Warm Assessment and Plan - Assessment and Plan (Free Text) Assessment: Patient is a 51yo [place] male with PMHx significant for DM, T12 compression fracture who presented to the ED with abdominal pain, nausea and vomiting. Drop in Hgb lead to an urgent EGD 10/31/17. 1. GI Bleed, Hematemesis 2. Anemia 3. Duodenal ulcer with adherent clot and visible vessels s/p epi and clips 4. Abdominal wall abscess Plan: -Continue supportive care with IVF hydration -s/p EGD for GI bleed with duodenal bulb large cratered necrotic ulcer with large adherent clot and visible vessel s/p epinephrine placed around the clot with clips -Large amount of blood in the entire stomach which suctioned and clots removed with roberts net, hemostasis was achieved but high risk for recurrent bleed, ulcer biopsies taken to rule out carcinoma -No further GI bleeding at this time with stable Hgb, monitor and transfuse as needed -Continue PPI drip -CT imaging reviewed which shows abnormal antrum/proximal duodenum concerning for malignant neoplasm, waiting on pathology -NPO -Plan for second look EGD tomorrow -IV Reglan daily since Erythromycin not available -s/p abdominal wall I&D -Continue abx -Will continue to follow closely <Honey Estrada MD - Last Filed: 11/02/17 17:32> Objective - Vital Signs/Intake and Output Vital Signs (last 24 hours): Temp Pulse Resp BP Pulse Ox 98.5 F 93 H 18 130/84 98 11/02/17 12:00 11/02/17 14:10 11/02/17 14:10 11/02/17 14:10 11/02/17 14:10 Intake and Output: 11/02/17 11/02/17 06:59 18:59 Intake Total 1370 1030 Output Total 1999 2245 Balance -630 -1215 - Medications Medications: Current Medications Acetaminophen (Tylenol 325 Mg Supp) 325 mg [place] Q6 PRN PRN Reason: Pain, moderate (4-7) Piperacillin Sod/Tazobactam (Sod 3.375 gm/ Sodium Chloride) 100 mls @ 200 mls/ hr IVPB Q6H [facility] Last Admin: 11/02/17 14:52 Dose: 200 mls/hr Dextrose/Sodium Chloride (Dextrose 5%/0.9% Ns 1000 Ml) 1,000 mls @ 75 mls/hr IV .[id number] [facility] Last Admin: 11/02/17 09:02 Dose: 75 mls/hr Vancomycin/Sodium Chloride (Vancomycin 1 Gm/Ns 200 Ml) 1 gm in 200 mls @ 166.6 mls/hr IVPB Q12H [facility] Stop: 11/07/17 09:01 Last Admin: 11/02/17 09:45 Dose: 166.6 mls/hr Insulin Human Regular (Novolin R) 0 unit SC Q6H [facility] PRN Reason: Protocol Last Admin: 11/02/17 12:27 Dose: Not Given Metoclopramide HCl (Reglan) 10 mg IVP DAILY [facility] Stop: 11/03/17 16:01 Last Admin: 11/02/17 09:05 Dose: 10 mg Pantoprazole Sodium (Protonix Inj) 40 mg IVP Q12H [facility] Last Admin: 11/02/17 17:05 Dose: 40 mg - Labs Labs: 11/02/17 00:50 11/02/17 00:50 PT 12.1 SECONDS (9.7-12.2) 10/31/17 01:55 INR 1.1 10/31/17 01:55 APTT 35 SECONDS (21-34) H 10/31/17 01:55 Attending/Attestation - Attestation I have personally seen and examined this patient.: Yes I have fully participated in the care of the patient.: Yes I have reviewed all pertinent clinical information, including history, physical exam and plan: Yes Notes (Text): 11/02/17 17:30 Patient seen at bedside in MICU earlier today. In a nutshell this is a 51 yr old [place] male with PMHx significant for DM, T12 compression fracture who presented to the ED with abdominal pain, nausea and hematemesis. Drop in Hb mandated urgent EGD with findings (please see chart for detailed report)- Duodenal bulb large cratered necrotic ulcer circumfernetial with large adherent clot and visible vessel. Epinephrine was placed around the clot with clips. There was hematin and large amount of blood in the entire stomach which was suctioned and clots removed with roberts net. Hemostasis was achieved and Ulcer biopsies taken to rule out carcinoma. * Discussed with IR to embolize GDA if bleeds again * Central line and cbc q daily * Keep Hct above 21 * Continue PPI gtt * Surgical consult for cratered duodenal bulb ulcer- high risk for perforation * Give erythromycin today and tomorrow for repeat EGD and increase motility for clot passage. * Clear liquid diet today * NPO past midnight * H/HCt has been stable since 48 hours * No further blood transfusions required * Second look endoscopy on Friday as adherent clot was not removed * Close monitoring * Supplement electrolytes * No s/s of cirrhosis or portal HTN Will follow closely . Above discussed with Lockstitch Cup Setter
--- NOTE | 2017-11-02 09:37 | CP.PCM.PN ---
Subjective - Date & Time of Evaluation Date of Evaluation: 11/02/17 Time of Evaluation: 07:20 - Subjective Subjective: General Surgery- Dr. Tai Patient seen and examined at bedside this AM. Patient complaining of some nausea , no vomiting. NGT in place to suction, bilious drainage. Abd abscess dressing C /D/I, minimal tenderness around incision Objective - Vital Signs/Intake and Output Vital Signs (last 24 hours): Temp Pulse Resp BP Pulse Ox 98 F 84 14 131/83 99 11/02/17 04:00 11/02/17 07:09 11/02/17 07:09 11/02/17 07:09 11/02/17 07:09 Intake and Output: 11/02/17 11/02/17 06:59 18:59 Intake Total 1370 110 Output Total 2000 Balance -630 110 - Medications Medications: Current Medications Acetaminophen (Tylenol 325 Mg Supp) 325 mg [place] Q6 PRN PRN Reason: Pain, moderate (4-7) Pantoprazole Sodium 80 mg/ (Sodium Chloride) 100 mls @ 10 mls/hr IVP .Q10H [facility] PRN Reason: 8 MG/HR Last Admin: 11/02/17 08:33 Dose: Not Given Piperacillin Sod/Tazobactam (Sod 3.375 gm/ Sodium Chloride) 100 mls @ 200 mls/ hr IVPB Q6H [facility] Last Admin: 11/02/17 07:07 Dose: 200 mls/hr Dextrose/Sodium Chloride (Dextrose 5%/0.9% Ns 1000 Ml) 1,000 mls @ 75 mls/hr IV .[id number] [facility] Last Admin: 11/02/17 09:02 Dose: 75 mls/hr Vancomycin/Sodium Chloride (Vancomycin 1 Gm/Ns 200 Ml) 1 gm in 200 mls @ 166.6 mls/hr IVPB Q12H [facility] Stop: 11/07/17 09:01 Potassium Phosphate 15 mmole/ (Sodium Chloride) 255 mls @ 42.5 mls/hr IVPB ONCE ONE Stop: 11/02/17 14:59 Insulin Human Regular (Novolin R) 0 unit SC Q6H [facility] PRN Reason: Protocol Last Admin: 11/02/17 06:24 Dose: Not Given Metoclopramide HCl (Reglan) 10 mg IVP DAILY [facility] Stop: 11/03/17 16:01 Last Admin: 11/02/17 09:05 Dose: 10 mg - Labs Labs: 11/02/17 00:50 11/02/17 00:50 PT 12.1 SECONDS (9.7-12.2) 10/31/17 01:55 INR 1.1 10/31/17 01:55 APTT 35 SECONDS (21-34) H 10/31/17 01:55 - Constitutional Appears: Non-toxic, No Acute Distress - Head Exam Head Exam: ATRAUMATIC - Eye Exam Eye Exam: EOMI. absent: Scleral icterus - ENT Exam ENT Exam: Mucous Membranes Moist - Respiratory Exam Respiratory Exam: NORMAL BREATHING PATTERN. absent: Accessory Muscle Use, Respiratory Distress - Cardiovascular Exam Cardiovascular Exam: Tachycardia, +S1, +S2. absent: Bradycardia - GI/Abdominal Exam GI & Abdominal Exam: Soft, Tenderness. absent: Distended, Firm, Guarding, Rigid Additional comments: tender to palpation in RUQ and martin-incisional voluntary guarding - Extremities Exam Additional comments: TLC in place w/ dressing C/D/I - Neurological Exam Neurological Exam: Alert, Awake, Oriented x3 - Skin Skin Exam: Intact, Warm Assessment and Plan - Assessment and Plan (Free Text) Assessment: 51 M s/p bedsie I&D abdominal abscess; found to have duodenal crater and blood clots in stomach s/p EGD Plan: - NPO - Continue protonix drip - IV fluids - IV abx - Analgesics/Anti-emetics PRN - f/u final pathology report - will plan for surgery depending on Path - further recs per Dr. Tai surgical attending PGY1
[2017-11-02] MEDS: Vancomycin 1 gm/NS 200 ml 1 GM/200 ML BAG IVPB SCH ×2 (09:45→20:30)
--- NOTE | 2017-11-02 16:10 | CP.PCM.PN ---
Subjective - Date & Time of Evaluation Date of Evaluation: 11/02/17 Time of Evaluation: 16:00 - Subjective Subjective: Hospitalist Progress Note Patient was seen and examined at 4:00 PM ICU Bed #2 11/02/17. 51 year old male who was admitted on 10/30/17 with complaints of epigastric pain ( which has been going on for may years which he attributed to his history of vertebral compression fracture in 2016 for which he takes percocet at home) that has worsened over the past 3 days. This was followed by multiple bouts of hematemesis and hematochezia. He was admitted to ICU for further treatment and evaluation of acute blood loss anemia likely secondary to upper GI source. Please see individual Assessment and Plans below for further details Currently upon FULL ROS Complains of epigastric and LUQ pain that will come and go but is not present at this time NO N/V (has NGT tube in place producing light green material) Mid to Low Back pain (chronic in nature secondary to Hx Vertebral Fracture) NO chest pain NO SOB NO other complaints Exam: General: AAOx3, NAD and currently not in any pain HEENT: EOMI, PERRLA, Mucous membranes are dry, NO cervical lymphadenopathy, NO thyromegaly, Pharynx without erythema/exudate, Nasal turbinates are nonerythematous and dry, Oral Mucosa is dry Cardio: NS1 and NS2, NO M/R/G Resp: CTA B/L, NO R/R/W GI: BS are reduced in all 4 quadrants, NO Tenderness to deep palpation of the Epigastric and LUQ areas, Liver and Spleen not palpated at this time Ext: Pulses are strong and equal, Capillary Refill is 2 seconds, NO edema Neuro: CN II through XII are grossly intact Skin: RLQ Abdomen S/P I&D by Surgery Team 10/31/[address] Slightly tender to palpation. NO drainage noted. Assessment and Plan: 1). Acute Blood Loss Anemia Likely Secondary to Upper GI Bleed Secondary to Dudenal Bulb Cratered Nectrotic Ulcer S/P Upper EGD #1 on 10/31/[address] Payne with EGD #2 planned for Friday11/03/17 During EGD #1 10/31/17 patient was intubated and then was extubated by ICU Team 07/09 F/U EGD Bx pathology report Protonix 40 mg IV Q12H NGT NPO Transfused 1 unit PRBC since admission CT Abdomen/Pelvis 11/01/17: heterogenous abnormal appearance at the level of the gastric antrum/proximal duodenum, worrisome for malignant neoplasm. Await EGD #1 Bx pathology report to determine if further imaging is needed for staging purposes 2). Right Abdominal Wall Cellulitis/Abscess Stated that he had a masquito bite roughly 3 days prior to admission and then since that time area got bigger and redder and painful Vancomycin 1 gm IV 1x/day currently Zosyn 3.375 gm IV Q6H currently Surgery Arago's Team performed bedside I&D on 10/31/17: Wound Culture shows MRSA and is on Contact Precautions 3). Hypokalemia Repleted by ICU Team 4). Hx Vertebral Fracture 2015 Pain is currently controlled and is currently not on any narcotics: Morphine has been given since he has been admitted 5). Hx DM 2 On Metformin at home which will be held at this time RISS Q6H with Accuchecks for now as he is NPO TSH, T4, Lipid Panel are WNL (except for HDL which is low at 19) F/U HgBA1C 6). Prophylaxis Protonix 40 mg IV Q12H Reglan 10 mg IV 1x/day with STOP date of 11/03/17 NO anticoagulation considering suspected Upper GI Bleed NPO Left a Voicemail for Papo Olivarez [phone] and he was updated as to the above. Costa Travis D.O. Objective - Vital Signs/Intake and Output Vital Signs (last 24 hours): Temp Pulse Resp BP Pulse Ox 98.5 F 93 H 18 130/84 98 11/02/17 12:00 11/02/17 14:10 11/02/17 14:10 11/02/17 14:10 11/02/17 14:10 Intake and Output: 11/02/17 11/02/17 06:59 18:59 Intake Total 1370 1030 Output Total 1999 2240 Balance -810 -8430 - Medications Medications: Current Medications Acetaminophen (Tylenol 325 Mg Supp) [address] Q6 PRN PRN Reason: Pain, moderate (4-7) Piperacillin Sod/Tazobactam (Sod 3.375 gm/ Sodium Chloride) 100 mls @ 200 mls/ hr IVPB Q6H [facility] Last Admin: 11/02/17 14:52 Dose: 200 mls/hr Dextrose/Sodium Chloride (Dextrose 5%/0.9% Ns 1000 Ml) 1,000 mls @ 75 mls/hr IV .[id number] [facility] Last Admin: 11/02/17 09:02 Dose: 75 mls/hr Vancomycin/Sodium Chloride (Vancomycin 1 Gm/Ns 200 Ml) 1 gm in 200 mls @ 166.6 mls/hr IVPB Q12H [facility] Stop: 11/07/17 09:01 Last Admin: 11/02/17 09:45 Dose: 166.6 mls/hr Insulin Human Regular (Novolin R) 0 unit SC Q6H [facility] PRN Reason: Protocol Last Admin: 11/02/17 12:27 Dose: Not Given Metoclopramide HCl (Reglan) 10 mg IVP DAILY [facility] Stop: 11/03/17 16:01 Last Admin: 11/02/17 09:05 Dose: 10 mg Pantoprazole Sodium (Protonix Inj) 40 mg IVP Q12H [facility] - Labs Labs: 11/02/17 00:50 11/02/17 00:50 PT 12.1 SECONDS (9.7-12.2) 10/31/17 01:55 INR 1.1 10/31/17 01:55 APTT 35 SECONDS (21-34) H 10/31/17 01:55
[2017-11-03] MEDS: Piperacillin/Tazobact 3.375 GM in Sodium Chloride 0.9% 100 ML IVPB SCH ×4 (02:05→20:11)
[2017-11-03] MEDS: Dextrose 5%/0.9% NS 1,000 ML IV SCH ×3 (04:26→11:39)
[2017-11-03] MEDS: (Novolin R) Insulin Human Regular 100 units/ml vial SC SCH ×4 (05:54→19:15)
[2017-11-03 06:52] LABS: HEMOGLOBIN 10.6 g/dL (12.0-18.0); MEAN CELL VOLUME 85.6 fL (80.0-94.0); MEAN CORPUSCULAR HEMOGLOBIN 29.6 pg (27.0-31.0); MEAN CORPUSCULAR HGB CONC 34.6 g/dL (33.0-37.0); MEAN PLATELET VOLUME 6.3 fL (7.2-11.7); RBC 3.58 Mil/uL (4.40-5.90)
[2017-11-03 07:07] LABS: ALBUMIN 3.2 g/dL (3.5-5.0); ALT/SGPT 85 U/L (21-72); AST/SGOT 48 U/L (17-59); BLOOD UREA NITROGEN 4 mg/dL (9-20); CALCIUM 7.7 mg/dl (8.6-10.4); GFR AFRICAN-AMERICAN > 60; GFR NON-AFRICAN AMERICAN > 60
--- NOTE | 2017-11-03 08:17 | CP.PCM.PN ---
Subjective - Date & Time of Evaluation Date of Evaluation: 11/03/17 Time of Evaluation: 07:30 - Subjective Subjective: General surgery progress note for Dr. Remigio Maloney, PGY-1 Pt S & E at bedside. Per nursing- pt had melena x 4 overnight with 1 green BM. Pt continues to c/o of Right abdominal wall pain at abscess I & D site. No Fevers or chills, other complaints. Objective - Vital Signs/Intake and Output Vital Signs (last 24 hours): Temp Pulse Resp BP Pulse Ox 98.8 F 93 H 15 141/87 98 11/03/17 08:00 11/03/17 08:00 11/03/17 08:00 11/03/17 08:00 11/03/17 08:00 Intake and Output: 11/03/17 11/03/17 06:59 18:59 Intake Total 1200 107.5 Output Total 1250 Balance -50 107.5 - Medications Medications: Current Medications Acetaminophen (Tylenol 325 Mg Supp) 325 mg [place] Q6 PRN PRN Reason: Pain, moderate (4-7) Piperacillin Sod/Tazobactam (Sod 3.375 gm/ Sodium Chloride) 100 mls @ 200 mls/ hr IVPB Q6H [facility] Last Admin: 11/03/17 07:23 Dose: 200 mls/hr Dextrose/Sodium Chloride (Dextrose 5%/0.9% Ns 1000 Ml) 1,000 mls @ 75 mls/hr IV .[id number] [facility] Last Admin: 11/03/17 06:07 Dose: 75 mls/hr Vancomycin/Sodium Chloride (Vancomycin 1 Gm/Ns 200 Ml) 1 gm in 200 mls @ 166.6 mls/hr IVPB Q12H [facility] Stop: 11/07/17 09:01 Last Admin: 11/02/17 20:30 Dose: 166.6 mls/hr Insulin Human Regular (Novolin R) 0 unit SC Q6H [facility] PRN Reason: Protocol Last Admin: 11/03/17 05:54 Dose: Not Given Metoclopramide HCl (Reglan) 10 mg IVP DAILY [facility] Stop: 11/03/17 16:01 Last Admin: 11/02/17 09:05 Dose: 10 mg Pantoprazole Sodium (Protonix Inj) 40 mg IVP Q12H [facility] Last Admin: 11/03/17 04:08 Dose: 40 mg - Labs Labs: 11/03/17 06:38 11/03/17 06:37 PT 12.1 SECONDS (9.7-12.2) 10/31/17 01:55 INR 1.1 10/31/17 01:55 APTT 35 SECONDS (21-34) H 10/31/17 01:55 - Constitutional Appears: Non-toxic, No Acute Distress - Head Exam Head Exam: ATRAUMATIC, NORMAL INSPECTION, NORMOCEPHALIC Additional comments: NGT in place - Eye Exam Eye Exam: EOMI, Normal appearance - ENT Exam ENT Exam: Mucous Membranes Moist, Normal Exam - Neck Exam Neck Exam: Full ROM, Normal Inspection - Respiratory Exam Respiratory Exam: NORMAL BREATHING PATTERN - Cardiovascular Exam Cardiovascular Exam: Tachycardia, +S1, +S2 - GI/Abdominal Exam GI & Abdominal Exam: Soft, Tenderness (over I & D site on right abdominal wall, packing removed and changed). absent: Distended, Firm, Guarding - Extremities Exam Extremities Exam: Normal Inspection - Neurological Exam Neurological Exam: Alert, Awake, CN II-XII Intact, Oriented x3 - Psychiatric Exam Psychiatric exam: Normal Affect, Normal Mood - Skin Skin Exam: Dry, Normal Color, Warm. absent: Intact (I & D site over Right abdominal wall) Assessment and Plan - Assessment and Plan (Free Text) Assessment: 51M POD#3 s/p bedside I&D abdominal wall abscess; w/duodenal crater and blood clots in stomach s/p EGD Plan: Dressing and packing changed today Cont NPO Cont PPI drip IVF IV Abx Pain control Anti-emetic PRN FU final path report Further surgical intervention pending path report Further recs as per attending Will CASSI Maloney, PGY-1
--- NOTE | 2017-11-03 08:32 | CP.PCM.PN ---
Subjective - Date & Time of Evaluation Date of Evaluation: 11/03/17 Time of Evaluation: 07:50 - Subjective Subjective: Medical Attending Note: [employer] Voice Wheel Alignment Mechanic ([id number]) Kenny Perales Patient seen and examined. GI fellow and ICU at bedside during examination. Patient reports mild sore throat, back pain, and left upper quadrant pain 5/10 on pain scale. Patient reports he has about 4-5 bowel movements overnight which he reports were dark. Discussed with night charge entry specialist, stool was green. GI Fellow at bedside, described to patient he had blood clot obstructing his stomach, and underneath the clot there is abnormal finding where in the repeat endoscopy today will allow us to get a better picture in terms of the abnormal tissue. We are awaiting the biopsy/pathology from Friday's endoscopy. Objective - Vital Signs/Intake and Output Vital Signs (last 24 hours): Temp Pulse Resp BP Pulse Ox 98.8 F 93 H 15 141/87 98 11/03/17 08:00 11/03/17 08:00 11/03/17 08:00 11/03/17 08:00 11/03/17 08:00 Intake and Output: 11/03/17 11/03/17 06:59 18:59 Intake Total 1200 107.5 Output Total 1250 Balance -50 107.5 - Medications Medications: Current Medications Acetaminophen (Tylenol 325 Mg Supp) 325 mg [place] Q6 PRN PRN Reason: Pain, moderate (4-7) Piperacillin Sod/Tazobactam (Sod 3.375 gm/ Sodium Chloride) 100 mls @ 200 mls/ hr IVPB Q6H [facility] Last Admin: 11/03/17 07:23 Dose: 200 mls/hr Dextrose/Sodium Chloride (Dextrose 5%/0.9% Ns 1000 Ml) 1,000 mls @ 75 mls/hr IV .[id number] [facility] Last Admin: 11/03/17 06:07 Dose: 75 mls/hr Vancomycin/Sodium Chloride (Vancomycin 1 Gm/Ns 200 Ml) 1 gm in 200 mls @ 166.6 mls/hr IVPB Q12H [facility] Stop: 11/07/17 09:01 Last Admin: 11/02/17 20:30 Dose: 166.6 mls/hr Potassium Chloride (Potassium Chloride 20 Meq/100 Ml) 20 meq in 100 mls @ 50 mls/hr IVPB ONCE ONE Stop: 11/03/17 10:26 Potassium Chloride (Potassium Chloride 20 Meq/100 Ml) 20 meq in 100 mls @ 50 mls/hr IVPB ONCE ONE Stop: 11/03/17 10:27 Insulin Human Regular (Novolin R) 0 unit SC Q6H [facility] PRN Reason: Protocol Last Admin: 11/03/17 05:54 Dose: Not Given Metoclopramide HCl (Reglan) 10 mg IVP DAILY [facility] Stop: 11/03/17 16:01 Last Admin: 11/02/17 09:05 Dose: 10 mg Pantoprazole Sodium (Protonix Inj) 40 mg IVP Q12H [facility] Last Admin: 11/03/17 04:08 Dose: 40 mg - Labs Labs: 11/03/17 06:38 11/03/17 06:37 PT 12.1 SECONDS (9.7-12.2) 10/31/17 01:55 INR 1.1 10/31/17 01:55 APTT 35 SECONDS (21-34) H 10/31/17 01:55 - Constitutional Appears: Non-toxic, No Acute Distress - Head Exam Head Exam: NORMAL INSPECTION Additional comments: + NGT tube - ENT Exam ENT Exam: Mucous Membranes Moist - Respiratory Exam Respiratory Exam: Clear to Ausculation Bilateral, NORMAL BREATHING PATTERN. absent: Rales, Rhonchi, Wheezes - Cardiovascular Exam Cardiovascular Exam: REGULAR RHYTHM, +S1, +S2. absent: RRR - GI/Abdominal Exam GI & Abdominal Exam: Guarding (mild), Soft, Tenderness (RLQ (mild erythema, dressing over) clean, dry intact), Normal Bowel Sounds, Rebound (when palpate). absent: Distended, Firm, Rigid - Extremities Exam Extremities Exam: absent: Pedal Edema, Tenderness - Back Exam Back Exam: absent: CVA tenderness (L), CVA tenderness (R), paraspinal tenderness - Neurological Exam Neurological Exam: Alert, Awake, Oriented x3 - Skin Skin Exam: Dry, Normal Color, Warm Additional comments: except is for the surgical site over the right lower quadrant of the abdomen Assessment and Plan (1) Duodenal ulcer Status: Acute (2) Diabetes Status: Chronic (3) GI bleed Status: Acute (4) Vertebral compression fracture Status: Chronic Attending/Attestation - Attestation I have personally seen and examined this patient.: Yes I have fully participated in the care of the patient.: Yes I have reviewed all pertinent clinical information, including history, physical exam and plan: Yes Notes (Text): Assessment/Plan 1) Acute Blood Loss Anemia Likely Secondary to Upper GI Bleed Secondary to Dudenal Bulb Cratered Nectrotic Ulcer * S/P Upper EGD #1 on 10/31/[address] Payne with EGD #2 planned for Friday11/03/17 * During EGD #1 10/31/17 patient was intubated and then was extubated by ICU Team 11/01/17 * F/U EGD Bx pathology report from 10/31/17 * Protonix 40 mg IV Q12H * NGT * NPO * Transfused 1 unit PRBC since admission * Patient is pending 2nd endoscopy today for better visualization given prior blood clot observed in the first endoscopy * GI Fellow has explained the risks associated with the procedure at bedside, witnessed by myself and daytime charge Francine Mayers * CT Abdomen/Pelvis 11/01/17: heterogenous abnormal appearance at the level of the gastric antrum/proximal duodenum, worrisome for malignant neoplasm. 2). Right Abdominal Wall Cellulitis/Abscess * Stated that he had a masquito bite roughly 3 days prior to admission and then since that time area got bigger and redder and painful * Vancomycin 1 gm IV 1x/day currently (active since 10/31/17; switched to Q12H on 11/02/17) * Follow Vancomycin trough 11/03/17 at 8:30PM donald * Zosyn 3.375 gm IV Q6H currently (active since 10/31/17) * Surgery Ara's Team performed bedside I&D on 10/31/17 * Wound Culture shows MRSA and is on Contact Precautions 3). Hypokalemia * 2 KCL riders ordered; K+ 2.7 * Will likely need more * Pending Mg2+ 4). Hx Vertebral Fracture 2015 5). Hx DM 2 * On Metformin at home which will be held at this time * RISS Q6H with Accuchecks for now as he is NPO * TSH, T4, Lipid Panel are WNL (except for HDL which is low at 19) * F/U HgBA1C 6). Prophylaxis * Protonix 40 mg IV Q12H * Reglan 10 mg IV 1x/day with STOP date of 11/03/17 * NO anticoagulation considering suspected Upper GI Bleed * NPO * D5NS 75 cc/hr
[2017-11-03] MEDS: Vancomycin 1 gm/NS 200 ml 1 GM/200 ML BAG IVPB SCH ×2 (08:41→21:19)
--- NOTE | 2017-11-03 08:50 | CT ---
PROCEDURE: CT HEAD WITH AND WITHOUT CONTRAST HISTORY: Mass in [place]. Look for mets COMPARISON: None available. TECHNIQUE: Axial computed tomography images were obtained through the head/brain with and without intravenous contrast enhancement. Contrast dose: 100 mL Visipaque 320 Radiation dose: Total exam DLP = 1105.68 mGy-cm. This CT exam was performed using one or more of the following dose reduction techniques: Automated exposure control, adjustment of the mA and/or kV according to patient size, and/or use of iterative reconstruction technique. FINDINGS: HEMORRHAGE: No intracranial hemorrhage. BRAIN: No mass, mass effect or edema. No abnormal intracranial enhancement. No atrophy or chronic microvascular ischemic changes. VENTRICLES: Unremarkable. No hydrocephalus. CALVARIUM: Unremarkable. SINUSES: Unremarkable as visualized. No significant inflammatory changes. MASTOID AIR CELLS: Unremarkable as visualized. No mastoid effusion. OTHER FINDINGS: None. IMPRESSION: Normal pre and post contrast enhanced CT of the head. No evidence of intracranial metastasis. Preliminary interpretation of this examination was reported by [facility] at 1:05 p.m. on 11/01/2017. There is concurrence of this report with the preliminary interpretation.
[2017-11-03 10:24] LABS: MAGNESIUM 1.9 mg/dL (1.6-2.3)
--- NOTE | 2017-11-03 11:39 | CARD ---
APPROVED REPORT EKG Measurement Heart [id number] <Conclusion> Sinus tachycardia Otherwise normal ECG
--- NOTE | 2017-11-03 13:10 | CP.PCM.PN ---
<Denzel Ivan - Last Filed: 11/03/17 13:03> Subjective - Date & Time of Evaluation Date of Evaluation: 11/03/17 Time of Evaluation: 13:03 - Subjective Subjective: PGY5 GI Fellow Pre-Procedure Note Patient was seen and examined bedside this morning. Spoke with patient using [employer] party chief Angella ([place] Islander). Patient understands that this procedure is emergent in nature given the inability to rule out underlying malignancy readily with heavy clot burden this past Friday and inability to rule out gastric outlet obstruction at present time 2/2 malignancy or clot burden. Patient understands possibility of intubation for procedure along with risks of bleeding, perforation or infection. Objective - Vital Signs/Intake and Output Vital Signs (last 24 hours): Temp Pulse Resp BP Pulse Ox 98.8 F 93 H 15 141/87 98 11/03/17 08:00 11/03/17 08:00 11/03/17 08:00 11/03/17 08:00 11/03/17 08:00 Intake and Output: 11/03/17 11/03/17 06:59 18:59 Intake Total 1200 377.5 Output Total 1250 300 Balance -50 77.5 - Medications Medications: Current Medications Acetaminophen (Tylenol 325 Mg Supp) 325 mg [place] Q6 PRN PRN Reason: Pain, moderate (4-7) Piperacillin Sod/Tazobactam (Sod 3.375 gm/ Sodium Chloride) 100 mls @ 200 mls/ hr IVPB Q6H [facility] Last Admin: 11/03/17 07:23 Dose: 200 mls/hr Dextrose/Sodium Chloride (Dextrose 5%/0.9% Ns 1000 Ml) 1,000 mls @ 75 mls/hr IV .[id number] [facility] Last Admin: 11/03/17 11:39 Dose: Not Given Vancomycin/Sodium Chloride (Vancomycin 1 Gm/Ns 200 Ml) 1 gm in 200 mls @ 166.6 mls/hr IVPB Q12H [facility] Stop: 11/07/17 09:01 Last Admin: 11/03/17 08:41 Dose: 166.6 mls/hr Insulin Human Regular (Novolin R) 0 unit SC Q6H [facility] PRN Reason: Protocol Last Admin: 11/03/17 05:54 Dose: Not Given Metoclopramide HCl (Reglan) 10 mg IVP DAILY [facility] Stop: 11/03/17 16:01 Last Admin: 11/03/17 09:25 Dose: 10 mg Pantoprazole Sodium (Protonix Inj) 40 mg IVP Q12H [facility] Last Admin: 11/03/17 04:08 Dose: 40 mg - Labs Labs: 11/03/17 06:38 11/03/17 06:37 PT 12.1 SECONDS (9.7-12.2) 10/31/17 01:55 INR 1.1 10/31/17 01:55 APTT 35 SECONDS (21-34) H 10/31/17 01:55 Assessment and Plan - Assessment and Plan (Free Text) Assessment: See subjective portion Plan: See subjective portion <Honey Estrada MD - Last Filed: 11/03/17 20:19> Objective - Vital Signs/Intake and Output Vital Signs (last 24 hours): Temp Pulse Resp BP Pulse Ox 98.8 F 73 10 L 146/85 100 11/03/17 14:31 11/03/17 14:31 11/03/17 14:31 11/03/17 14:31 11/03/17 14:31 Intake and Output: 11/03/17 11/04/17 18:59 06:59 Intake Total 677.5 Output Total 300 Balance 377.5 - Medications Medications: Current Medications Acetaminophen (Tylenol 325 Mg Supp) 325 mg [place] Q6 PRN PRN Reason: Pain, moderate (4-7) Piperacillin Sod/Tazobactam (Sod 3.375 gm/ Sodium Chloride) 100 mls @ 200 mls/ hr IVPB Q6H [facility] Last Admin: 11/03/17 16:40 Dose: 200 mls/hr Dextrose/Sodium Chloride (Dextrose 5%/0.9% Ns 1000 Ml) 1,000 mls @ 75 mls/hr IV .[id number] [facility] Last Admin: 11/03/17 11:39 Dose: Not Given Vancomycin/Sodium Chloride (Vancomycin 1 Gm/Ns 200 Ml) 1 gm in 200 mls @ 166.6 mls/hr IVPB Q12H [facility] Stop: 11/07/17 09:01 Last Admin: 11/03/17 08:41 Dose: 166.6 mls/hr Potassium Chloride (Potassium Chloride 20 Meq/100 Ml) 20 meq in 100 mls @ 50 mls/hr IVPB ONCE ONE Stop: 11/03/17 21:39 Insulin Human Regular (Novolin R) 0 unit SC Q6H [facility] PRN Reason: Protocol Last Admin: 11/03/17 19:15 Dose: 3 unit Pantoprazole Sodium (Protonix Inj) 40 mg IVP Q12H [facility] Last Admin: 11/03/17 16:41 Dose: 40 mg - Labs Labs: 11/03/17 06:38 11/03/17 14:30 PT 12.1 SECONDS (9.7-12.2) 10/31/17 01:55 INR 1.1 10/31/17 01:55 APTT 35 SECONDS (21-34) H 10/31/17 01:55 Attending/Attestation - Attestation I have personally seen and examined this patient.: Yes I have fully participated in the care of the patient.: Yes I have reviewed all pertinent clinical information, including history, physical exam and plan: Yes
[2017-11-03] MEDS ORDERED: Etomidate 20 mg/10ml Inj IV ONE (14:30)
[2017-11-03 14:51] LABS: BLOOD UREA NITROGEN 4 mg/dL (9-20); CALCIUM 8.3 mg/dl (8.6-10.4); GFR AFRICAN-AMERICAN > 60; GFR NON-AFRICAN AMERICAN > 60
[2017-11-03] MEDS ORDERED: Potassium Chloride 20 mEq/15 ml LIQ UD PO ONE (19:45)
[2017-11-03] MEDS ORDERED: Dextrose 50% SYRINGE Inj (50 ml) IV PRN (21:10)
[2017-11-03] MEDS ORDERED: Glucagon Recombinant 1 mg Inj IM PRN (21:10)
[2017-11-04] MEDS: (Novolin R) Insulin Human Regular 100 units/ml vial SC SCH ×3 (00:05→12:11)
[2017-11-04] MEDS: Dextrose 5%/0.9% NS 1,000 ML IV SCH ×3 (01:13→13:50)
[2017-11-04] MEDS ORDERED: DiphenhydrAMINE 50 mg/ml Inj IVP ONE ×2 (01:29→21:56)
[2017-11-04] MEDS: Piperacillin/Tazobact 3.375 GM in Sodium Chloride 0.9% 100 ML IVPB SCH ×4 (01:34→19:30)
[2017-11-04 06:48] LABS: BASO % 0.5 % (0.0-2.0); EOS # 0.2 K/uL (0.0-0.7); HEMOGLOBIN 11.5 g/dL (12.0-18.0); MEAN CELL VOLUME 84.6 fL (80.0-94.0); MEAN CORPUSCULAR HEMOGLOBIN 30.2 pg (27.0-31.0); MEAN CORPUSCULAR HGB CONC 35.7 g/dL (33.0-37.0); MEAN PLATELET VOLUME 6.1 fL (7.2-11.7); MONO # 0.8 K/uL (0.0-0.8); MONO % 8.5 % (0.0-10.0); RBC 3.79 Mil/uL (4.40-5.90); RED CELL DISTRIBUTION WIDTH 14.1 % (11.5-14.5); WHITE BLOOD COUNT 8.9 K/uL (4.8-10.8)
[2017-11-04 06:57] LABS: ALB/GLOB RATIO 1.1 (1.0-2.1); ALBUMIN 3.3 g/dL (3.5-5.0); ALT/SGPT 75 U/L (21-72); AST/SGOT 28 U/L (17-59); BLOOD UREA NITROGEN 3 mg/dL (9-20); CALCIUM 8.4 mg/dl (8.6-10.4); GFR AFRICAN-AMERICAN > 60; GFR NON-AFRICAN AMERICAN > 60; MAGNESIUM 1.8 mg/dL (1.6-2.3)
--- NOTE | 2017-11-04 07:25 | CP.PCM.PN ---
<MonchoDenzel - Last Filed: 11/04/17 08:23> Subjective - Date & Time of Evaluation Date of Evaluation: 11/04/17 Time of Evaluation: 06:45 - Subjective Subjective: PGY5 GI Fellow Progress Note Patient seen and examined bedside this morning. The patient's son, Darin, assisted with Korean translation. The patient admits to some mild back pain and LUQ abdominal pain. He has been having difficulty sleeping. No other issues at this time. Tolerating liquid diet without issue. 12 system ROS performed and negative except where stated. Objective - Vital Signs/Intake and Output Vital Signs (last 24 hours): Temp Pulse Resp BP Pulse Ox 97.9 F 68 15 136/82 100 11/04/17 04:00 11/04/17 01:00 11/04/17 00:00 11/04/17 04:00 11/04/17 04:00 Intake and Output: 11/04/17 11/04/17 06:59 18:59 Intake Total 1150 Output Total 1950 Balance -800 - Medications Medications: Current Medications Acetaminophen (Tylenol 325 Mg Supp) 325 mg [place] Q6 PRN PRN Reason: Pain, moderate (4-7) Dextrose (Dextrose 50% Inj) 0 ml IV STAT PRN; Protocol PRN Reason: Hypoglycemia Protocol Dextrose (Glutose 15) 0 gm PO ONCE PRN; Protocol PRN Reason: Hypoglycemia Protocol Glucagon (Glucagen Diagnostic Kit) 0 mg IM STAT PRN; Protocol PRN Reason: Hypoglycemia Protocol Piperacillin Sod/Tazobactam (Sod 3.375 gm/ Sodium Chloride) 100 mls @ 200 mls/ hr IVPB Q6H [facility] Last Admin: 11/04/17 01:34 Dose: 200 mls/hr Dextrose/Sodium Chloride (Dextrose 5%/0.9% Ns 1000 Ml) 1,000 mls @ 75 mls/hr IV .[id number] [facility] Last Admin: 11/04/17 06:11 Dose: 75 mls/hr Vancomycin/Sodium Chloride (Vancomycin 1 Gm/Ns 200 Ml) 1 gm in 200 mls @ 166.6 mls/hr IVPB Q12H [facility] Stop: 11/07/17 09:01 Last Admin: 11/03/17 21:19 Dose: 166.6 mls/hr Dextrose (Dextrose 5% In Water 1000 Ml) 1,000 mls @ 0 mls/hr IV .Q0M PRN; Protocol; Per Protocol PRN Reason: Hypoglycemia Protocol Insulin Human Regular (Novolin R) 0 unit SC Q6H [facility] PRN Reason: Protocol Last Admin: 11/04/17 06:00 Dose: Not Given Pantoprazole Sodium (Protonix Inj) 40 mg IVP Q12H [facility] Last Admin: 11/04/17 04:44 Dose: 40 mg - Labs Labs: 11/04/17 06:30 11/04/17 06:28 PT 12.1 SECONDS (9.7-12.2) 10/31/17 01:55 INR 1.1 10/31/17 01:55 APTT 35 SECONDS (21-34) H 10/31/17 01:55 - Constitutional Appears: Non-toxic, No Acute Distress - Eye Exam Eye Exam: EOMI, PERRL - ENT Exam ENT Exam: Mucous Membranes Moist - Respiratory Exam Respiratory Exam: Clear to Ausculation Bilateral. absent: Rales, Rhonchi, Wheezes - Cardiovascular Exam Cardiovascular Exam: RRR, +S1, +S2 - GI/Abdominal Exam GI & Abdominal Exam: Soft, Normal Bowel Sounds. absent: Distended, Firm, Guarding, Rigid, Tenderness, Organomegaly - Extremities Exam Extremities Exam: Normal Inspection. absent: Pedal Edema - Neurological Exam Neurological Exam: Alert, Awake, Oriented x3 - Psychiatric Exam Psychiatric exam: Normal Affect, Normal Mood - Skin Skin Exam: Dry, Warm Assessment and Plan - Assessment and Plan (Free Text) Assessment: Patient is a 51yo [place] male with PMHx significant for DM, T12 compression fracture who presented to the ED last night with abdominal pain, nausea and vomiting. -Duodenal bulb partially obstructed with ulcerated, nodular lesion noted -Hematemesis, resolved -Acute blood loss anemia - improved -MRSA Cellulitis 2/2 insect bite on RLQ of abdomen -Hypokalemia -DM -T12 compression fracture Plan: -S/P repeat EGD with ulcerated lesion noted in duodenal bulm, partially obstructing and nodular/irregular appearance of gastric antrum -Biopsies from first procedure showing acute ulceration -Patient had second set of targeted biopsies performed yesterday - pending pathology - suspicion for malignancy -Continue Protonix 40mg BIDAC - can change to PO -Vancomycin/zosyn for cellulitis on abdomen - improving - surgery following -Hypokalemia persists despite resuscitation - monitor Mg/Phos and replete as needed -Transfusion support as needed - HGB continues to improve without -Advance to pureed diet <Mendez Unger - Last Filed: 11/04/17 08:38> Objective - Vital Signs/Intake and Output Vital Signs (last 24 hours): Temp Pulse Resp BP Pulse Ox 98.4 F 72 20 131/86 100 11/04/17 08:00 11/04/17 08:00 11/04/17 08:00 11/04/17 08:00 11/04/17 08:00 Intake and Output: 11/04/17 11/04/17 06:59 18:59 Intake Total 1150 75 Output Total 1950 Balance -800 75 - Medications Medications: Current Medications Acetaminophen (Tylenol 325 Mg Supp) 325 mg [place] Q6 PRN PRN Reason: Pain, moderate (4-7) Dextrose (Dextrose 50% Inj) 0 ml IV STAT PRN; Protocol PRN Reason: Hypoglycemia Protocol Dextrose (Glutose 15) 0 gm PO ONCE PRN; Protocol PRN Reason: Hypoglycemia Protocol Glucagon (Glucagen Diagnostic Kit) 0 mg IM STAT PRN; Protocol PRN Reason: Hypoglycemia Protocol Piperacillin Sod/Tazobactam (Sod 3.375 gm/ Sodium Chloride) 100 mls @ 200 mls/ hr IVPB Q6H [facility] Last Admin: 11/04/17 07:56 Dose: 200 mls/hr Dextrose/Sodium Chloride (Dextrose 5%/0.9% Ns 1000 Ml) 1,000 mls @ 75 mls/hr IV .[id number] [facility] Last Admin: 11/04/17 06:11 Dose: 75 mls/hr Vancomycin/Sodium Chloride (Vancomycin 1 Gm/Ns 200 Ml) 1 gm in 200 mls @ 166.6 mls/hr IVPB Q12H [facility] Stop: 11/07/17 09:01 Last Admin: 11/03/17 21:19 Dose: 166.6 mls/hr Dextrose (Dextrose 5% In Water 1000 Ml) 1,000 mls @ 0 mls/hr IV .Q0M PRN; Protocol; Per Protocol PRN Reason: Hypoglycemia Protocol Potassium Chloride (Potassium Chloride 20 Meq/100 Ml) 20 meq in 100 mls @ 50 mls/hr IVPB ONCE ONE Stop: 11/04/17 09:57 Potassium Chloride (Potassium Chloride 20 Meq/100 Ml) 20 meq in 100 mls @ 50 mls/hr IVPB ONCE ONE Stop: 11/04/17 09:58 Magnesium Sulfate/Dextrose (Magnesium Sulfate 1 Gm/100 Ml D5w) 1 gm in 100 mls @ 200 mls/hr IVPB ONCE ONE Stop: 11/04/17 08:44 Last Admin: 11/04/17 08:14 Dose: 200 mls/hr Insulin Human Regular (Novolin R) 0 unit SC Q6H [facility] PRN Reason: Protocol Last Admin: 11/04/17 06:00 Dose: Not Given Pantoprazole Sodium (Protonix Ec Tab) 40 mg PO BIDAC [facility] Last Admin: 11/04/17 07:56 Dose: 40 mg - Labs Labs: 11/04/17 06:30 11/04/17 06:28 PT 12.1 SECONDS (9.7-12.2) 10/31/17 01:55 INR 1.1 10/31/17 01:55 APTT 35 SECONDS (21-34) H 10/31/17 01:55 Attending/Attestation - Attestation I have personally seen and examined this patient.: Yes I have fully participated in the care of the patient.: Yes I have reviewed all pertinent clinical information, including history, physical exam and plan: Yes Notes (Text): 11/04/17 08:34 I have seen and examined patient with GI fellow. No acute events overnight, he is seen sitting in bed, appears comfortable. He describes mild ongoing epigastric pain but otherwise denies nausea, vomiting, fever/chills. He is asking for his diet to be advanced. Review of vitals from today are normal. DM Abdominal cellulitis Nausea, vomiting Hematemesis - s/p EGD showing large cratered partially obstructing duodenal ulcer with pigmented spot, no active bleeding noted - H/H stable, continue to monitor - Continue with PPI therapy - Continue with antibiotic therapy as per ID - Awaiting biopsy results from EGD - Will advance to puree consistency diet and monitor clinical course
--- NOTE | 2017-11-04 07:38 | CP.PCM.PN ---
Subjective - Date & Time of Evaluation Date of Evaluation: 11/04/17 Time of Evaluation: 07:20 - Subjective Subjective: General Surgery- Dr. Tai Patient seen and examined at bedside this AM. No acute events overnight. son on the phone during encounter. Pt states abd pain has decreased. s/p EGD yesterday no additional clots or active bleeding biopsy was taken. abd dressing C/D/I. Denies f/c cp/sob n/v/d Objective - Vital Signs/Intake and Output Vital Signs (last 24 hours): Temp Pulse Resp BP Pulse Ox 97.9 F 68 15 136/82 100 11/04/17 04:00 11/04/17 01:00 11/04/17 00:00 11/04/17 04:00 11/04/17 04:00 Intake and Output: 11/04/17 11/04/17 06:59 18:59 Intake Total 1150 Output Total 1950 Balance -800 - Medications Medications: Current Medications Acetaminophen (Tylenol 325 Mg Supp) 325 mg [place] Q6 PRN PRN Reason: Pain, moderate (4-7) Dextrose (Dextrose 50% Inj) 0 ml IV STAT PRN; Protocol PRN Reason: Hypoglycemia Protocol Dextrose (Glutose 15) 0 gm PO ONCE PRN; Protocol PRN Reason: Hypoglycemia Protocol Glucagon (Glucagen Diagnostic Kit) 0 mg IM STAT PRN; Protocol PRN Reason: Hypoglycemia Protocol Piperacillin Sod/Tazobactam (Sod 3.375 gm/ Sodium Chloride) 100 mls @ 200 mls/ hr IVPB Q6H [facility] Last Admin: 11/04/17 01:34 Dose: 200 mls/hr Dextrose/Sodium Chloride (Dextrose 5%/0.9% Ns 1000 Ml) 1,000 mls @ 75 mls/hr IV .[id number] [facility] Last Admin: 11/04/17 06:11 Dose: 75 mls/hr Vancomycin/Sodium Chloride (Vancomycin 1 Gm/Ns 200 Ml) 1 gm in 200 mls @ 166.6 mls/hr IVPB Q12H [facility] Stop: 11/07/17 09:01 Last Admin: 11/03/17 21:19 Dose: 166.6 mls/hr Dextrose (Dextrose 5% In Water 1000 Ml) 1,000 mls @ 0 mls/hr IV .Q0M PRN; Protocol; Per Protocol PRN Reason: Hypoglycemia Protocol Insulin Human Regular (Novolin R) 0 unit SC Q6H [facility] PRN Reason: Protocol Last Admin: 11/04/17 06:00 Dose: Not Given Pantoprazole Sodium (Protonix Ec Tab) 40 mg PO BIDAC [facility] - Labs Labs: 11/04/17 06:30 11/04/17 06:28 PT 12.1 SECONDS (9.7-12.2) 10/31/17 01:55 INR 1.1 10/31/17 01:55 APTT 35 SECONDS (21-34) H 10/31/17 01:55 - Constitutional Appears: Non-toxic, No Acute Distress - Head Exam Head Exam: ATRAUMATIC - Eye Exam Eye Exam: EOMI. absent: Scleral icterus - ENT Exam ENT Exam: Mucous Membranes Moist - Respiratory Exam Respiratory Exam: NORMAL BREATHING PATTERN. absent: Accessory Muscle Use, Respiratory Distress - Cardiovascular Exam Cardiovascular Exam: Tachycardia, +S1, +S2. absent: Bradycardia - GI/Abdominal Exam GI & Abdominal Exam: Soft, Tenderness. absent: Distended, Firm, Guarding, Rigid Additional comments: mild tenderness to palpation in RUQ and mid-epigastrum - Neurological Exam Neurological Exam: Alert, Awake, Oriented x3 - Psychiatric Exam Psychiatric exam: Normal Affect - Skin Skin Exam: Intact, Warm Assessment and Plan - Assessment and Plan (Free Text) Assessment: 51M s/p bedside I&D abdominal wall abscess POD#4; w/duodenal crater and blood clots in stomach, s/p EGD w/ biopsy Plan: -PPI GGT -IVF -IV Abx -Pain control & anti-emetic PRN -Anti-emetic PRN -f/u path report s/p biopsy -surgical intervention pending path report -Further recs per Dr. Tai surgical attending Shaun Piedra PGY1
[2017-11-04] MEDS: Pantoprazole 40 mg EC Tab PO SCH ×2 (07:56→15:33)
[2017-11-04] MEDS ORDERED: Magnesium Sulfate 1 gm in D5W 1 GM/100 ML BAG IVPB ONE (08:15)
[2017-11-04] MEDS: Vancomycin 1 gm/NS 200 ml 1 GM/200 ML BAG IVPB SCH ×2 (09:18→21:10)
[2017-11-04] MEDS ORDERED: Potassium Chloride 20 mEq/15 ml LIQ UD PO ONE (09:43)
[2017-11-04] MEDS ORDERED: (Novolin R) Insulin Human Regular 100 units/ml vial SC SCH (16:30)
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
[2017-11-04 18:14] LABS: BLOOD UREA NITROGEN 4 mg/dL (9-20); CALCIUM 8.6 mg/dl (8.6-10.4); GFR AFRICAN-AMERICAN > 60; GFR NON-AFRICAN AMERICAN > 60
[2017-11-05] MEDS: Piperacillin/Tazobact 3.375 GM in Sodium Chloride 0.9% 100 ML IVPB SCH ×4 (01:01→21:00)
[2017-11-05] MEDS: Dextrose 5%/0.9% NS 1,000 ML IV SCH ×2 (01:03→03:30)
[2017-11-05 01:54] VITALS: RESP 20
[2017-11-05] MEDS: Pantoprazole 40 mg EC Tab PO SCH ×2 (06:30→18:32)
[2017-11-05] MEDS: (Novolin R) Insulin Human Regular 100 units/ml vial SC SCH ×3 (08:53→18:33)
--- NOTE | 2017-11-05 09:44 | CP.PCM.PN ---
<Denzel Ivan - Last Filed: 11/05/17 09:41> Subjective - Date & Time of Evaluation Date of Evaluation: 11/05/17 Time of Evaluation: 07:20 - Subjective Subjective: PGY5 GI Fellow Progress Note Patient seen and examined bedside this morning. The patient denies any complaints at this time. No nausea, vomiting and is tolerating puree diet. No passage of dark stool. Denies dizziness, lightheadedness. 12 system ROS performed and negative except where stated. Objective - Vital Signs/Intake and Output Vital Signs (last 24 hours): Temp Pulse Resp BP Pulse Ox 97.9 F 77 20 127/71 98 11/05/17 08:00 11/05/17 08:00 11/05/17 08:00 11/05/17 08:00 11/05/17 08:00 Intake and Output: 11/05/17 11/05/17 06:59 18:59 Intake Total 1500 Output Total 1300 Balance 200 - Medications Medications: Current Medications Acetaminophen (Tylenol 325 Mg Supp) 325 mg [place] Q6 PRN PRN Reason: Pain, moderate (4-7) Dextrose (Dextrose 50% Inj) 0 ml IV STAT PRN; Protocol PRN Reason: Hypoglycemia Protocol Dextrose (Glutose 15) 0 gm PO ONCE PRN; Protocol PRN Reason: Hypoglycemia Protocol Glucagon (Glucagen Diagnostic Kit) 0 mg IM STAT PRN; Protocol PRN Reason: Hypoglycemia Protocol Piperacillin Sod/Tazobactam (Sod 3.375 gm/ Sodium Chloride) 100 mls @ 200 mls/ hr IVPB Q6H [facility] Last Admin: 11/05/17 08:52 Dose: 200 mls/hr Vancomycin/Sodium Chloride (Vancomycin 1 Gm/Ns 200 Ml) 1 gm in 200 mls @ 166.6 mls/hr IVPB Q12H [facility] Stop: 11/07/17 09:01 Last Admin: 11/04/17 21:10 Dose: 166.6 mls/hr Dextrose (Dextrose 5% In Water 1000 Ml) 1,000 mls @ 0 mls/hr IV .Q0M PRN; Protocol; Per Protocol PRN Reason: Hypoglycemia Protocol Insulin Human Regular (Novolin R) 0 unit SC AC [facility] PRN Reason: Protocol Last Admin: 11/05/17 08:53 Dose: 1 unit Pantoprazole Sodium (Protonix Ec Tab) 40 mg PO BIDAC [facility] Last Admin: 11/05/17 06:30 Dose: 40 mg - Labs Labs: 11/04/17 06:30 11/04/17 17:57 PT 12.1 SECONDS (9.7-12.2) 10/31/17 01:55 INR 1.1 10/31/17 01:55 APTT 35 SECONDS (21-34) H 10/31/17 01:55 - Constitutional Appears: Non-toxic, No Acute Distress - Eye Exam Eye Exam: EOMI, PERRL - ENT Exam ENT Exam: Mucous Membranes Moist - Respiratory Exam Respiratory Exam: Clear to Ausculation Bilateral. absent: Rales, Rhonchi, Wheezes - Cardiovascular Exam Cardiovascular Exam: RRR, +S1, +S2 - GI/Abdominal Exam GI & Abdominal Exam: Soft, Normal Bowel Sounds. absent: Distended, Firm, Guarding, Rigid, Tenderness, Organomegaly Additional comments: RLQ wound improving - Extremities Exam Extremities Exam: Normal Inspection. absent: Pedal Edema - Neurological Exam Neurological Exam: Alert, Awake, Oriented x3 - Psychiatric Exam Psychiatric exam: Normal Affect, Normal Mood - Skin Skin Exam: Dry, Warm Assessment and Plan - Assessment and Plan (Free Text) Assessment: Patient is a 51yo [place]ian male with PMHx significant for DM, T12 compression fracture who presented to the ED last night with abdominal pain, nausea and vomiting. -Duodenal bulb partially obstructed with ulceration and nodularity noted - path pending -Hematemesis, resolved -Acute blood loss anemia - improved -MRSA Cellulitis 2/2 insect bite on RLQ of abdomen -Persistent hypokalemia -DM -T12 compression fracture Plan: -Pathology pending from repeat EGD -No further bleeding noted, HGB stable -Continue Protonix 40mg BIDAC - can change to PO -Vancomycin/zosyn for cellulitis on abdomen - improving - surgery following -Replete K+ as needed, check U/A -Tolerating pureed diet -OK to D/C from GI standpoint with appropriate outpatient follow up <Jose Martin Alcantara - Last Filed: 11/05/17 15:05> Objective - Vital Signs/Intake and Output Vital Signs (last 24 hours): Temp Pulse Resp BP Pulse Ox 97.9 F 84 20 127/71 98 11/05/17 08:00 11/05/17 12:07 11/05/17 08:00 11/05/17 08:00 11/05/17 08:00 Intake and Output: 11/05/17 11/05/17 06:59 18:59 Intake Total 1500 700 Output Total 1300 1200 Balance 200 -500 - Medications Medications: Current Medications Acetaminophen (Tylenol 325 Mg Supp) 325 mg [place] Q6 PRN PRN Reason: Pain, moderate (4-7) Dextrose (Dextrose 50% Inj) 0 ml IV STAT PRN; Protocol PRN Reason: Hypoglycemia Protocol Dextrose (Glutose 15) 0 gm PO ONCE PRN; Protocol PRN Reason: Hypoglycemia Protocol Glucagon (Glucagen Diagnostic Kit) 0 mg IM STAT PRN; Protocol PRN Reason: Hypoglycemia Protocol Piperacillin Sod/Tazobactam (Sod 3.375 gm/ Sodium Chloride) 100 mls @ 200 mls/ hr IVPB Q6H [facility] Stop: 11/05/17 23:59 Last Admin: 11/05/17 13:38 Dose: 200 mls/hr Vancomycin/Sodium Chloride (Vancomycin 1 Gm/Ns 200 Ml) 1 gm in 200 mls @ 166.6 mls/hr IVPB Q12H [facility] Stop: 11/07/17 23:59 Last Admin: 11/05/17 11:16 Dose: 166.6 mls/hr Dextrose (Dextrose 5% In Water 1000 Ml) 1,000 mls @ 0 mls/hr IV .Q0M PRN; Protocol; Per Protocol PRN Reason: Hypoglycemia Protocol Insulin Human Regular (Novolin R) 0 unit SC AC [facility] PRN Reason: Protocol Last Admin: 11/05/17 12:16 Dose: 2 unit Pantoprazole Sodium (Protonix Ec Tab) 40 mg PO BIDAC [facility] Last Admin: 11/05/17 06:30 Dose: 40 mg Trimethoprim/Sulfamethoxazole (Bactrim Ds Tab) 1 tab PO DAILY [facility] Stop: 11/09/17 10:01 - Labs Labs: 11/05/17 10:52 11/05/17 10:52 PT 12.1 SECONDS (9.7-12.2) 10/31/17 01:55 INR 1.1 10/31/17 01:55 APTT 35 SECONDS (21-34) H 10/31/17 01:55 Attending/Attestation - Attestation I have personally seen and examined this patient.: Yes I have fully participated in the care of the patient.: Yes I have reviewed all pertinent clinical information, including history, physical exam and plan: Yes Notes (Text): 11/05/17 15:04 51 year old male with DM admitted with UGIB found to have large duodenal ulcer, possibly malignant. 1. Duodenal ulcer 2. GI bleeding 3. Anemia Plan: -await path -continue PPI BID -continue pureed diet -hgb stable, no recurrent bleeding so far
[2017-11-05 11:02] LABS: BASO # 0.1 K/uL (0.0-0.2); BASO % 0.7 % (0.0-2.0); EOS # 0.2 K/uL (0.0-0.7); EOS % 1.7 % (0.0-4.0); HEMOGLOBIN 11.6 g/dL (12.0-18.0); LYMPH % 18.4 % (20.0-40.0); MEAN CELL VOLUME 85.2 fL (80.0-94.0); MEAN CORPUSCULAR HEMOGLOBIN 29.6 pg (27.0-31.0); MEAN CORPUSCULAR HGB CONC 34.7 g/dL (33.0-37.0); MEAN PLATELET VOLUME 5.9 fL (7.2-11.7); MONO # 0.7 K/uL (0.0-0.8); MONO % 6.8 % (0.0-10.0); NEUT # 7.8 K/uL (1.8-7.0); NEUT % 72.4 % (50.0-75.0); RBC 3.92 Mil/uL (4.40-5.90); RED CELL DISTRIBUTION WIDTH 14.4 % (11.5-14.5); WHITE BLOOD COUNT 10.8 K/uL (4.8-10.8)
[2017-11-05] MEDS: Vancomycin 1 gm/NS 200 ml 1 GM/200 ML BAG IVPB SCH ×2 (11:16→22:33)
[2017-11-05 11:17] LABS: ALB/GLOB RATIO 1.1 (1.0-2.1); ALBUMIN 3.3 g/dL (3.5-5.0); ALT/SGPT 50 U/L (21-72); AST/SGOT 20 U/L (17-59); BLOOD UREA NITROGEN 5 mg/dL (9-20); CALCIUM 8.7 mg/dl (8.6-10.4); GFR AFRICAN-AMERICAN > 60; GFR NON-AFRICAN AMERICAN > 60; MAGNESIUM 1.9 mg/dL (1.6-2.3)
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
[2017-11-05 12:49] LABS: URINE BILIRUBIN NEGATIVE (NEGATIVE); URINE BLOOD NEGATIVE (NEGATIVE); URINE CLARITY Clear (Clear); URINE COLOR Straw (YELLOW); URINE GLUCOSE (UA) 2+ mg/dL (Normal); URINE LEUKOCYTE ESTERASE NEG Leu/uL (Negative); URINE NITRATE NEGATIVE (NEGATIVE); URINE PROTEIN NEGATIVE (NEGATIVE); URINE UROBILINOGEN NORMAL mg/dL (0.2-1.0)
--- NOTE | 2017-11-05 17:16 | CP.PCM.PN ---
Subjective - Date & Time of Evaluation Date of Evaluation: 11/05/17 Time of Evaluation: 13:50 - Subjective Subjective: General Surgery- Dr. Tai pt seen and examined at bedside. No acute events overnight. nursing notes reviewed. ABD pain significantly better. Abd dressing C/D/I, no active or purlent drainage from incision site. Denies F/C CP/SOB N/V/D Objective - Vital Signs/Intake and Output Vital Signs (last 24 hours): Temp Pulse Resp BP Pulse Ox 98.4 F 80 20 114/73 97 11/05/17 15:17 11/05/17 15:17 11/05/17 15:17 11/05/17 15:17 11/05/17 15:17 Intake and Output: 11/05/17 11/05/17 06:59 18:59 Intake Total 1500 700 Output Total 1300 1200 Balance 200 -500 - Medications Medications: Current Medications Acetaminophen (Tylenol 325 Mg Supp) 325 mg [place] Q6 PRN PRN Reason: Pain, moderate (4-7) Dextrose (Dextrose 50% Inj) 0 ml IV STAT PRN; Protocol PRN Reason: Hypoglycemia Protocol Dextrose (Glutose 15) 0 gm PO ONCE PRN; Protocol PRN Reason: Hypoglycemia Protocol Glucagon (Glucagen Diagnostic Kit) 0 mg IM STAT PRN; Protocol PRN Reason: Hypoglycemia Protocol Piperacillin Sod/Tazobactam (Sod 3.375 gm/ Sodium Chloride) 100 mls @ 200 mls/ hr IVPB Q6H [facility] Stop: 11/05/17 23:59 Last Admin: 11/05/17 13:38 Dose: 200 mls/hr Vancomycin/Sodium Chloride (Vancomycin 1 Gm/Ns 200 Ml) 1 gm in 200 mls @ 166.6 mls/hr IVPB Q12H [facility] Stop: 11/07/17 23:59 Last Admin: 11/05/17 11:16 Dose: 166.6 mls/hr Dextrose (Dextrose 5% In Water 1000 Ml) 1,000 mls @ 0 mls/hr IV .Q0M PRN; Protocol; Per Protocol PRN Reason: Hypoglycemia Protocol Insulin Human Regular (Novolin R) 0 unit SC AC DAVEY PRN Reason: Protocol Last Admin: 11/05/17 12:16 Dose: 2 unit Pantoprazole Sodium (Protonix Ec Tab) 40 mg PO BIDAC [facility] Last Admin: 11/05/17 06:30 Dose: 40 mg Trimethoprim/Sulfamethoxazole (Bactrim Ds Tab) 1 tab PO DAILY [facility] Stop: 11/09/17 10:01 - Labs Labs: 11/05/17 10:52 11/05/17 10:52 PT 12.1 SECONDS (9.7-12.2) 10/31/17 01:55 INR 1.1 10/31/17 01:55 APTT 35 SECONDS (21-34) H 10/31/17 01:55 - Constitutional Appears: Non-toxic, No Acute Distress - Head Exam Head Exam: ATRAUMATIC - Eye Exam Eye Exam: EOMI. absent: Scleral icterus - ENT Exam ENT Exam: Mucous Membranes Moist - Respiratory Exam Respiratory Exam: NORMAL BREATHING PATTERN. absent: Accessory Muscle Use, Respiratory Distress - Cardiovascular Exam Cardiovascular Exam: +S1, +S2. absent: Bradycardia, Tachycardia - GI/Abdominal Exam GI & Abdominal Exam: Soft. absent: Distended, Firm, Guarding, Rigid Additional comments: Tenderness mid-epigastric ABD icnision C/D/I Assessment and Plan - Assessment and Plan (Free Text) Assessment: 51M s/p bedside I&D abdominal wall abscess POD#5; w/duodenal crater and blood clots in stomach, s/p EGD w/ repeat biopsy Plan: -IVF -IV Abx -Pain control & anti-emetic PRN -Anti-emetic PRN -f/u path report s/p biopsy -surgical intervention pending path report -Further recs per Dr. Tai surgical attending Shaun Piedra PGY1
[2017-11-06 04:45] VITALS: O2SAT 97
--- NOTE | 2017-11-06 06:45 | CP.PCM.PN ---
<Denzel Ivan - Last Filed: 11/06/17 13:55> Subjective - Date & Time of Evaluation Date of Evaluation: 11/06/17 Time of Evaluation: 06:45 - Subjective Subjective: PGY5 GI Fellow Progress Note Patient seen and examined bedside this morning. The patient complains of some slight LUQ abdominal pain yesterday which has since resolved. No further bleeding noted. No events overnight. 12 system ROS performed and negative except where stated. Objective - Vital Signs/Intake and Output Vital Signs (last 24 hours): Temp Pulse Resp BP Pulse Ox 97.9 F 79 20 143/77 97 11/06/17 04:44 11/06/17 04:44 11/06/17 04:44 11/06/17 04:44 11/06/17 04:44 Intake and Output: 11/05/17 11/06/17 18:59 06:59 Intake Total 700 Output Total 1200 Balance -500 - Medications Medications: Current Medications Acetaminophen (Tylenol 325 Mg Supp) 325 mg [place] Q6 PRN PRN Reason: Pain, moderate (4-7) Dextrose (Dextrose 50% Inj) 0 ml IV STAT PRN; Protocol PRN Reason: Hypoglycemia Protocol Dextrose (Glutose 15) 0 gm PO ONCE PRN; Protocol PRN Reason: Hypoglycemia Protocol Glucagon (Glucagen Diagnostic Kit) 0 mg IM STAT PRN; Protocol PRN Reason: Hypoglycemia Protocol Vancomycin/Sodium Chloride (Vancomycin 1 Gm/Ns 200 Ml) 1 gm in 200 mls @ 166.6 mls/hr IVPB Q12H [facility] Stop: 11/07/17 23:59 Last Admin: 11/05/17 22:33 Dose: 166.6 mls/hr Dextrose (Dextrose 5% In Water 1000 Ml) 1,000 mls @ 0 mls/hr IV .Q0M PRN; Protocol; Per Protocol PRN Reason: Hypoglycemia Protocol Insulin Human Regular (Novolin R) 0 unit SC AC D[facility] PRN Reason: Protocol Last Admin: 11/05/17 18:33 Dose: 1 unit Pantoprazole Sodium (Protonix Ec Tab) 40 mg PO BIDAC [facility] Last Admin: 11/05/17 18:32 Dose: 40 mg Trimethoprim/Sulfamethoxazole (Bactrim Ds Tab) 1 tab PO DAILY [facility] Stop: 11/09/17 10:01 - Labs Labs: 11/05/17 10:52 11/05/17 10:52 PT 12.1 SECONDS (9.7-12.2) 10/31/17 01:55 INR 1.1 10/31/17 01:55 APTT 35 SECONDS (21-34) H 10/31/17 01:55 Assessment and Plan - Assessment and Plan (Free Text) Assessment: Patient is a 51yo Lao male with PMHx significant for DM, T12 compression fracture who presented to the ED last night with abdominal pain, nausea and vomiting. -Duodenal bulb partially obstructed with ulceration and nodularity noted - path pending -Hematemesis, resolved -Acute blood loss anemia - improved -MRSA Cellulitis 2/2 insect bite on RLQ of abdomen -Reactive thrombocytosis -Hypokalemia, resolved -DM -T12 compression fracture Plan: -Pathology again showing acute inflammation/peptic duodenitis and ulceration without evidence of malignancy at this time -No further bleeding noted, HGB stable -Protonix 40mg PO BIDAC -Vancomycin/zosyn for cellulitis on abdomen - improving - surgery following -Advance diet as tolerated -OK to D/C home from GI perspective -RTC in 1 month for follow up - repeat EGD in 2 months <Mendez Unger - Last Filed: 11/06/17 15:59> Objective - Vital Signs/Intake and Output Vital Signs (last 24 hours): Temp Pulse Resp BP Pulse Ox 98.3 F 97 H 20 114/73 97 11/06/17 07:20 11/06/17 07:20 11/06/17 07:20 11/06/17 07:20 11/06/17 07:20 - Medications Medications: Current Medications Acetaminophen (Tylenol 325 Mg Supp) 325 mg [place] Q6 PRN PRN Reason: Pain, moderate (4-7) Last Admin: 11/06/17 10:15 Dose: 325 mg Dextrose (Dextrose 50% Inj) 0 ml IV STAT PRN; Protocol PRN Reason: Hypoglycemia Protocol Dextrose (Glutose 15) 0 gm PO ONCE PRN; Protocol PRN Reason: Hypoglycemia Protocol Glucagon (Glucagen Diagnostic Kit) 0 mg IM STAT PRN; Protocol PRN Reason: Hypoglycemia Protocol Dextrose (Dextrose 5% In Water 1000 Ml) 1,000 mls @ 0 mls/hr IV .Q0M PRN; Protocol; Per Protocol PRN Reason: Hypoglycemia Protocol Vancomycin HCl 1,700 mg/ (Sodium Chloride) 500 mls @ 166.6 mls/hr IVPB Q12H [facility] Insulin Human Regular (Novolin R) 0 unit SC AC D[facility] PRN Reason: Protocol Last Admin: 11/06/17 12:15 Dose: 2 unit Pantoprazole Sodium (Protonix Ec Tab) 40 mg PO BIDAC [facility] Last Admin: 11/06/17 10:12 Dose: 40 mg Potassium Chloride (K-Dur 20 Meq Er Tab) 40 meq PO DAILY [facility] Last Admin: 11/06/17 13:41 Dose: 40 meq Trimethoprim/Sulfamethoxazole (Bactrim Ds Tab) 1 tab PO DAILY [facility] Stop: 11/09/17 10:01 Last Admin: 11/06/17 10:11 Dose: 1 tab - Labs Labs: 11/06/17 07:02 11/06/17 07:02 PT 12.1 SECONDS (9.7-12.2) 10/31/17 01:55 INR 1.1 10/31/17 01:55 APTT 35 SECONDS (21-34) H 10/31/17 01:55 Attending/Attestation - Attestation I have personally seen and examined this patient.: Yes I have fully participated in the care of the patient.: Yes I have reviewed all pertinent clinical information, including history, physical exam and plan: Yes Notes (Text): 11/06/17 15:56 I have seen and examined patient with GI fellow. No acute events overnight, he is seen resting in bed comfortably. He denies abdominal pain, nausea, vomiting , diarrhea, fever/chills. Tolerating puree diet without difficulty. Review of vitals from today are normal. DM Cellulitis Abdominal pain, hematemesis s/p EGD showing large cratered duodenal ulcer - Advance diet slowly as tolerated - EGD biopsies reviewed with pathologist, no evidence of malignancy, though biopsies were superficial - Continue with PPI therapy - H/H stable, continue to monitor - Continue with antibiotic therapy as per medical team - No further planned GI interventions, will sign off case. Patient should have repeat EGD within 2 months to follow up on ulcerated lesion. Please reconsult as necessary, thank you.
[2017-11-06] MEDS: (Novolin R) Insulin Human Regular 100 units/ml vial SC SCH ×2 (07:30→12:15)
[2017-11-06 07:36] LABS: ALB/GLOB RATIO 1.1 (1.0-2.1); ALBUMIN 3.3 g/dL (3.5-5.0); ALT/SGPT 58 U/L (21-72); AST/SGOT 36 U/L (17-59); BLOOD UREA NITROGEN 6 mg/dL (9-20); CALCIUM 8.6 mg/dl (8.6-10.4); GFR AFRICAN-AMERICAN > 60; GFR NON-AFRICAN AMERICAN > 60; MAGNESIUM 1.9 mg/dL (1.6-2.3)
[2017-11-06 07:45] LABS: BASO # 0.1 K/uL (0.0-0.2); BASO % 0.7 % (0.0-2.0); EOS # 0.2 K/uL (0.0-0.7); HEMOGLOBIN 11.6 g/dL (12.0-18.0); LYMPH # 2.8 K/uL (1.0-4.3); LYMPH % 25.7 % (20.0-40.0); MEAN CELL VOLUME 84.7 fL (80.0-94.0); MEAN CORPUSCULAR HEMOGLOBIN 30.2 pg (27.0-31.0); MEAN CORPUSCULAR HGB CONC 35.6 g/dL (33.0-37.0); MONO # 0.9 K/uL (0.0-0.8); MONO % 7.8 % (0.0-10.0); NEUT % 63.8 % (50.0-75.0); NRBC % 0.1 % (0.0-2.0); RBC 3.83 Mil/uL (4.40-5.90); RED CELL DISTRIBUTION WIDTH 14.7 % (11.5-14.5)
[2017-11-06] MEDS: Vancomycin 1 gm/NS 200 ml 1 GM/200 ML BAG IVPB SCH (09:00)
--- NOTE | 2017-11-06 09:18 | CP.PCM.PN ---
Subjective - Date & Time of Evaluation Date of Evaluation: 11/06/17 Time of Evaluation: 06:40 - Subjective Subjective: General Surgery- Dr. Tai Pt seen and examined at bedside this AM. no acute events overnight. nursing notes reviewed. no new complaints. tolerating current diet. abdominal pain better than yesterday. Abd wound dressing, C/D/I no purulent drainage. Denies F/ C/CP/SOB/N/V/D Objective - Vital Signs/Intake and Output Vital Signs (last 24 hours): Temp Pulse Resp BP Pulse Ox 98.3 F 97 H 20 114/73 97 11/06/17 07:20 11/06/17 07:20 11/06/17 07:20 11/06/17 07:20 11/06/17 07:20 - Medications Medications: Current Medications Acetaminophen (Tylenol 325 Mg Supp) 325 mg [place] Q6 PRN PRN Reason: Pain, moderate (4-7) Dextrose (Dextrose 50% Inj) 0 ml IV STAT PRN; Protocol PRN Reason: Hypoglycemia Protocol Dextrose (Glutose 15) 0 gm PO ONCE PRN; Protocol PRN Reason: Hypoglycemia Protocol Glucagon (Glucagen Diagnostic Kit) 0 mg IM STAT PRN; Protocol PRN Reason: Hypoglycemia Protocol Vancomycin/Sodium Chloride (Vancomycin 1 Gm/Ns 200 Ml) 1 gm in 200 mls @ 166.6 mls/hr IVPB Q12H [facility] Stop: 11/07/17 23:59 Last Admin: 11/05/17 22:33 Dose: 166.6 mls/hr Dextrose (Dextrose 5% In Water 1000 Ml) 1,000 mls @ 0 mls/hr IV .Q0M PRN; Protocol; Per Protocol PRN Reason: Hypoglycemia Protocol Insulin Human Regular (Novolin R) 0 unit SC AC [facility] PRN Reason: Protocol Last Admin: 11/05/17 18:33 Dose: 1 unit Pantoprazole Sodium (Protonix Ec Tab) 40 mg PO BIDAC [facility] Last Admin: 11/05/17 18:32 Dose: 40 mg Trimethoprim/Sulfamethoxazole (Bactrim Ds Tab) 1 tab PO DAILY [facility] Stop: 11/09/17 10:01 - Labs Labs: 11/06/17 07:02 11/06/17 07:02 PT 12.1 SECONDS (9.7-12.2) 10/31/17 01:55 INR 1.1 10/31/17 01:55 APTT 35 SECONDS (21-34) H 10/31/17 01:55 - Constitutional Appears: Non-toxic, No Acute Distress - Eye Exam Eye Exam: EOMI. absent: Scleral icterus - ENT Exam ENT Exam: Mucous Membranes Moist - Respiratory Exam Respiratory Exam: NORMAL BREATHING PATTERN. absent: Accessory Muscle Use, Respiratory Distress - Cardiovascular Exam Cardiovascular Exam: +S1, +S2. absent: Bradycardia, Tachycardia - GI/Abdominal Exam GI & Abdominal Exam: Soft. absent: Distended, Firm, Guarding, Rigid, Tenderness - Neurological Exam Neurological Exam: Alert, Awake, Oriented x3 - Skin Skin Exam: Intact, Warm Assessment and Plan - Assessment and Plan (Free Text) Assessment: 51M s/p bedside I&D abdominal wall abscess POD#6; w/duodenal crater and blood clots in stomach, s/p EGD w/ repeat biopsy; hematemesis resolved Plan: -IVF -Pain control & anti-emetic PRN -Anti-emetic PRN -Pathology came back negative; GI to re-scope in 6months -no further surgical intervention during this hospital stay -follow up in office in 1-2 weeks to see abd wall abscess healing progressiong - no packing needed. keep area clean; can shower, cover with dry dressing -Further recs per Dr. Tai surgical attending Shaun Piedra PGY1
[2017-11-06] MEDS ORDERED: Tmp-Smz 800 mg-160 mg DS Tab PO SCH (10:00)
[2017-11-06] MEDS: Pantoprazole 40 mg EC Tab PO SCH (10:12)
--- NOTE | 2017-11-06 11:25 | CP.PCM.PN ---
Subjective - Date & Time of Evaluation Date of Evaluation: 11/06/17 Time of Evaluation: 07:45 - Subjective Subjective: Medicine Progress note ( Dr. Costa Travis's service) Patient was seen and examined at bedside. Patient reports that he is doing well and has no new complaints. Patient did report that he experienced some mild abdominal discomfort overnight. Patient is tolerating diet and ambulating. Objective - Vital Signs/Intake and Output Vital Signs (last 24 hours): Temp Pulse Resp BP Pulse Ox 98.3 F 97 H 20 114/73 97 11/06/17 07:20 11/06/17 07:20 11/06/17 07:20 11/06/17 07:20 11/06/17 07:20 - Medications Medications: Current Medications Acetaminophen (Tylenol 325 Mg Supp) 325 mg [place] Q6 PRN PRN Reason: Pain, moderate (4-7) Last Admin: 11/06/17 10:15 Dose: 325 mg Dextrose (Dextrose 50% Inj) 0 ml IV STAT PRN; Protocol PRN Reason: Hypoglycemia Protocol Dextrose (Glutose 15) 0 gm PO ONCE PRN; Protocol PRN Reason: Hypoglycemia Protocol Glucagon (Glucagen Diagnostic Kit) 0 mg IM STAT PRN; Protocol PRN Reason: Hypoglycemia Protocol Vancomycin/Sodium Chloride (Vancomycin 1 Gm/Ns 200 Ml) 1 gm in 200 mls @ 166.6 mls/hr IVPB Q12H [facility] Stop: 11/07/17 23:59 Last Admin: 11/06/17 09:00 Dose: 166.6 mls/hr Dextrose (Dextrose 5% In Water 1000 Ml) 1,000 mls @ 0 mls/hr IV .Q0M PRN; Protocol; Per Protocol PRN Reason: Hypoglycemia Protocol Insulin Human Regular (Novolin R) 0 unit SC AC [facility] PRN Reason: Protocol Last Admin: 11/06/17 07:30 Dose: Not Given Pantoprazole Sodium (Protonix Ec Tab) 40 mg PO BIDAC [facility] Last Admin: 11/06/17 10:12 Dose: 40 mg Trimethoprim/Sulfamethoxazole (Bactrim Ds Tab) 1 tab PO DAILY [facility] Stop: 11/09/17 10:01 Last Admin: 11/06/17 10:11 Dose: 1 tab - Labs Labs: 11/06/17 07:02 11/06/17 07:02 PT 12.1 SECONDS (9.7-12.2) 02/09/18 01:55 INR 1.1 10/31/17 01:55 APTT 35 SECONDS (21-34) H 10/31/17 01:55 - Constitutional Appears: Well, No Acute Distress - Head Exam Head Exam: ATRAUMATIC, NORMAL INSPECTION - Eye Exam Eye Exam: EOMI, Normal appearance - ENT Exam ENT Exam: Mucous Membranes Moist - Respiratory Exam Respiratory Exam: Clear to Ausculation Bilateral, NORMAL BREATHING PATTERN. absent: Rhonchi, Wheezes, Respiratory Distress - Cardiovascular Exam Cardiovascular Exam: REGULAR RHYTHM, +S1, +S2 Assessment and Plan (1) Acute blood loss anemia Status: Acute (2) Abdominal abscess Status: Acute (3) Hypokalemia Status: Acute (4) Diabetes mellitus Status: Acute (5) Vertebral compression fracture Status: Chronic (6) Prophylactic measure Status: Acute
[2017-11-06] MEDS ORDERED: Potassium Chloride 20 mEq ER Tab PO SCH (13:15)
--- NOTE | 2017-11-06 15:35 | CP.PCM.DIS ---
<Evan Owen E - Last Filed: 11/06/17 16:51> Provider - Provider Date of Admission: 10/31/17 03:34 Attending physician: Neva Soto DO Time Spent in preparation of Discharge (in minutes): 35 Diagnosis - Discharge Diagnosis (1) Acute blood loss anemia Status: Acute (2) Abdominal abscess Status: Acute (3) Hypokalemia Status: Acute (4) Diabetes mellitus Status: Acute (5) Vertebral compression fracture Status: Chronic (6) Prophylactic measure Status: Acute Hospital Course - Lab Results Lab Results: Micro Results 11/04/17 23:11 Naris MRSA Culture - Final MRSA NOT DETECTED 10/31/17 11:04 Abscess - Abscess Gram Stain - Final 10/31/17 11:04 Abscess - Abscess Wound Culture - Final Methicillin Resistant S Aureus 10/31/17 03:34 Naris MRSA Culture (Admit) - Final MRSA NOT DETECTED Most Recent Lab Values WBC 11.0 K/uL (4.8-10.8) H 11/06/17 07:02 RBC 3.83 Mil/uL (4.40-5.90) L 11/06/17 07:02 Hgb 11.6 g/dL (12.0-18.0) L 11/06/17 07:02 Hct 32.5 % (35.0-51.0) L 11/06/17 07:02 MCV 84.7 fL (80.0-94.0) 11/06/17 07:02 MCH 30.2 pg (27.0-31.0) 11/06/17 07:02 MCHC 35.6 g/dL (33.0-37.0) 11/06/17 07:02 RDW 14.7 % (11.5-14.5) H 11/06/17 07:02 Plt Count 819 K/uL (130-400) H 11/06/17 07:02 MPV 6.0 fL (7.2-11.7) L 11/06/17 07:02 Neut % (Auto) 63.8 % (50.0-75.0) 11/06/17 07:02 Lymph % (Auto) 25.7 % (20.0-40.0) 11/06/17 07:02 [place] % (Auto) 7.8 % (0.0-10.0) 11/06/17 07:02 Eos % (Auto) 2.0 % (0.0-4.0) 11/06/17 07:02 Baso % (Auto) 0.7 % (0.0-2.0) 11/06/17 07:02 Neut # (Auto) 7.0 K/uL (1.8-7.0) 11/06/17 07:02 Lymph # (Auto) 2.8 K/uL (1.0-4.3) 11/06/17 07:02 [place] # (Auto) 0.9 K/uL (0.0-0.8) H 11/06/17 07:02 Eos # (Auto) 0.2 K/uL (0.0-0.7) 11/06/17 07:02 Baso # (Auto) 0.1 K/uL (0.0-0.2) 11/06/17 07:02 Differential Comment 11/06/17 07:02 PT 12.1 SECONDS (9.7-12.2) 10/31/17 01:55 INR 1.1 10/31/17 01:55 APTT 35 SECONDS (21-34) H 10/31/17 01:55 Puncture Site Rr 11/01/17 04:56 pCO2 35 mm/Hg (35-45) 11/01/17 04:56 pO2 147 mm/Hg (80-100) H 11/01/17 04:56 HCO3 28.1 mmol/L (21-28) H 11/01/17 04:56 ABG pH 7.50 (7.35-7.45) H 11/01/17 04:56 ABG Total CO2 28.4 mmol/L (22-28) H 11/01/17 04:56 ABG O2 Saturation 98.9 % (95-98) H 11/01/17 04:56 ABG Base Excess 4.0 mmol/L (-2.0-3.0) H 11/01/17 04:56 ABG Hemoglobin 9.7 g/dL (11.7-17.4) L 11/01/17 04:56 ABG Carboxyhemoglobin 1.6 % (0.5-1.5) H 11/01/17 04:56 POC ABG HHb (Measured) 1.1 % (0.0-5.0) 11/01/17 04:56 ABG Methemoglobin 1.0 % (0.0-3.0) 11/01/17 04:56 Jean-Claude Test Pos 11/01/17 04:56 A-a O2 Difference 94.0 mm/Hg 11/01/17 04:56 Respiratory Index 0.6 11/01/17 04:56 Hgb O2 Saturation 96.4 % (95.0-98.0) 11/01/17 04:56 Vent Mode Prvc 11/01/17 04:56 Mechanical Rate 20 11/01/17 04:56 FiO2 40.0 % 11/01/17 04:56 Tidal Volume 500 11/01/17 04:56 PEEP 5 11/01/17 04:56 Sodium 136 mmol/L (132-148) 11/06/17 07:02 Potassium 3.4 mmol/L (3.6-5.2) L 11/06/17 07:02 Chloride 98 mmol/L (98-107) 11/06/17 07:02 Carbon Dioxide 29 mmol/L (22-30) 11/06/17 07:02 Anion Gap 12 (10-20) 11/06/17 07:02 BUN 6 mg/dL (9-20) L 11/06/17 07:02 Creatinine 0.7 mg/dL (0.8-1.5) L 11/06/17 07:02 Est GFR ( Amer) > 60 11/06/17 07:02 Est GFR (Non-Af Amer) > 60 11/06/17 07:02 POC Glucose (mg/dL) 141 mg/dL (65-110) H 11/06/17 06:41 Random Glucose 145 mg/dL (75-110) H 11/06/17 07:02 Hemoglobin A1c 6.6 % (4.2-6.5) H 11/04/17 06:30 Lactic Acid 1.0 mmol/L (0.7-2.1) 11/01/17 03:39 Calcium 8.6 mg/dl (8.6-10.4) 11/06/17 07:02 Phosphorus 3.9 mg/dL (2.5-4.5) 11/06/17 07:02 Magnesium 1.9 mg/dL (1.6-2.3) 11/06/17 07:02 Total Bilirubin 0.1 mg/dL (0.2-1.3) L 11/06/17 07:02 AST 36 U/L (17-59) 11/06/17 07:02 ALT 58 U/L (21-72) 11/06/17 07:02 Alkaline Phosphatase 74 U/L (38-126) 11/06/17 07:02 Total Protein 6.4 g/dL (6.3-8.3) 11/06/17 07:02 Albumin 3.3 g/dL (3.5-5.0) L 11/06/17 07:02 Globulin 3.1 gm/dL (2.2-3.9) 11/06/17 07:02 Albumin/Globulin Ratio 1.1 (1.0-2.1) 11/06/17 07:02 Triglycerides 149 mg/dL (0-149) 11/01/17 03:39 Cholesterol 96 mg/dL (0-199) 11/01/17 03:39 LDL Cholesterol Direct 53 mg/dL (0-129) 11/01/17 03:39 HDL Cholesterol 19 mg/dL (30-70) L 11/01/17 03:39 Lipase 33 U/L (23-300) 10/31/17 01:55 Free T4 1.29 ng/dL (0.78-2.19) 11/01/17 03:39 TSH 3rd Generation 1.34 mIU/L (0.46-4.68) 11/01/17 03:39 Urine Color Straw (YELLOW) 11/05/17 12:26 Urine Clarity Clear (Clear) 11/05/17 12:26 Urine pH 6.0 (5.0-8.0) 11/05/17 12:26 Ur Specific [place] 1.012 (1.003-1.030) 11/05/17 12:26 Urine Protein Negative mg/dL (NEGATIVE) 11/05/17 12:26 Urine Glucose (UA) 2+ mg/dL (Normal) H 11/05/17 12:26 Urine Ketones Negative mg/dL (NEGATIVE) 11/05/17 12:26 Urine Blood Negative (NEGATIVE) 11/05/17 12:26 Urine Nitrate Negative (NEGATIVE) 11/05/17 12:26 Urine Bilirubin Negative (NEGATIVE) 11/05/17 12:26 Urine Urobilinogen Normal mg/dL (0.2-1.0) 11/05/17 12:26 Ur Leukocyte Esterase Neg Elina/uL (Negative) 11/05/17 12:26 Urine WBC (Auto) < 1 /hpf (0-5) 11/05/17 12:26 Vancomycin Trough 8.7 ug/mL (5.0-10.0) 11/05/17 09:12 Blood Type A POSITIVE 10/31/17 01:55 Blood Type Confirm A POSITIVE 10/31/17 01:55 Antibody Screen Negative 10/31/17 01:55 - Hospital Course Hospital Course: HPI ( As per admission): This is a 51 year old gentleman who is presenting with c/o LUQ abdominal pain for several weeks, insect bite x3 days on his abdomen and hematemasis/ hematochezia x 1 day. He is accompanied by his son who explains that the patient has been have LUQ abdominal pain for several weeks. He saw his PMD Dr. Chairez for this and was told that it was neuropathic pain associated with his compression fracture. He did not pay any more mind to this and continued to take pain medication at home for this pain. Then three days ago he noticed an insect bite on the right side of his abdomen. The bite has been getting progressively red and painful. He has not noted any drainage. Then one day ago he began to develop fevers and chills. Subsequently the patient began to vomit gross blood and pass gross blood through the stool. A total of 4 episodes of each were reported. Hospital Course: Patient was admitted with the consideration of acute Blood Loss Anemia Likely Secondary to upper GI Bleed; patient was transfused 1 units of PRBC over the course of admission. GI consult was placed to Dr. Unger, who conducted an EGD, which showed Small hiatal hernia, clotted blood in the gastric antrum, in the pylorus, in the cardia, in the gastric fundus and in the gastric body. Blood in the duodenal bulb. One duodenal ulcer oozing blood. Patient was intubated during the procedure in order to protect the airway for hypoxic respiratory failure, therefore he was admitted to the ICU and extubated . 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 Pathology from the second EGD biopsy revealed no significant intraepithelial lymphocytosis, negative for H. Pylori and positive for acute peptic duodenitis. In addition, patient was managed on appropriate medication (Protonix) for upper GI Bleed. Also, on admission, patient was noted to have an abdominal abscess due to mosquito bite. General surgery, Dr. Tai was consulted, who recommended incision and drainage at bedside. Patient was then managed on appropriate antibiotics post incision and drainage. Patient was cleared for discharge by his medical team once duodenal biopsy was deemed benign. Patient was discharged with appropriate instruction with the help of [facility] language, [facility] ([id number]) and [facility] ([id number]). Pertinent Imaging and Studies: EGD (10/31/17): Small hiatal hernia, clotted blood in the gastric antrum, in the pylorus, in the cardia, in the gastric fundus and in the gastric body. Blood in the duodenal bulb. One duodenal ulcer oozing blood. 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 For a complete record, please refer to the medical record. Discharge Exam - Head Exam Head Exam: ATRAUMATIC - Eye Exam Eye Exam: EOMI, Normal appearance - ENT Exam ENT Exam: Mucous Membranes Moist - Respiratory Exam Respiratory Exam: Clear to PA & Lateral, NORMAL BREATHING PATTERN, UNREMARKABLE. absent: Prolonged Expiratory Phase, Wheezes, Respiratory Distress - Cardiovascular Exam Cardiovascular Exam: REGULAR RHYTHM, +S1, +S2 - GI/Abdominal Exam GI & Abdominal Exam: Normal Bowel Sounds, Soft. absent: Tenderness - Extremities Exam Extremities exam: normal inspection - Neurological Exam Neurological exam: Alert, Oriented x3 - Psychiatric Exam Psychiatric exam: Normal Affect, Normal Mood - Skin Skin Exam: Normal Color Discharge Plan - Discharge Medications Prescriptions: Clindamycin [Cleocin] 300 mg PO Q6H #16 cap Glimepiride 4 mg PO DAILY #30 tablet MetFORMIN [glucoPHAGE] 1,000 mg PO BID #60 tab Pantoprazole [Protonix EC Tab] 40 mg PO BIDAC #60 ect - Follow Up Plan Condition: STABLE Disposition: HOME/ ROUTINE Instructions: Gastritis, Skin Abscess, Gastrointestinal Bleeding, Clindamycin ( Systemic), Hypokalemia (DC), MRSA (DC), Carbohydrate Counting Diet, Diabetes Diet , Upper GI Endoscopy (DC), Glimepiride, Metformin, Pantoprazole, Foot Care for Diabetics, Pureed Diet Additional Instructions: Please discharge patient home as he is medically stable Patient is to continue with the following medications 1. Metformin 1000mg PO BID at 8am ( Breakfast) and 8PM ( Dinner) 2. Glimepiride 4mg PO daily ( 8am, breakfast) 3. Clindamycin 300mg PO Q6H (8am, 12pm, 4pm and 8am) 4. OTC Probiotic, please take within 2hours of taking clindamycin 5. Protonix 40mg PO BID ( Please take at 8am and 8PM) 5. Please continue your pain management medications at home Please follow up with GI at the [facility] on December 17, [address] Denzel Ivan at [address] [place] [address] on [address] - Patient will need a repeat EGD 2 months from today, procedure date will be scheduled during GI appointment on December 17, 2017 Please follow up to establish care at the [facility] located at [address] [place] [address] on [address], Please follow up with General Surgery, Dr. Tai with one week Please return to the hospital if symptoms persists or resumes Please take care Referrals: Denzel Ivan [Other] - 12/17/17 1:00 pm (APPOINTMENT MADE FOR 12/17/17 Follow up from hospitalization - needs repeat EGD) [facility] [Provider Group] David Tai MD [Staff Provider] - <Costa Travis - Last Filed: 11/06/17 18:11> Provider - Provider Date of Admission: 10/31/17 03:34 Attending physician: Neva Soto, Hospital Course - Lab Results Lab Results: Micro Results 11/04/17 23:11 Naris MRSA Culture - Final MRSA NOT DETECTED 10/31/17 11:04 Abscess - Abscess Gram Stain - Final 10/31/17 11:04 Abscess - Abscess Wound Culture - Final Methicillin Resistant S Aureus 10/31/17 03:34 Naris MRSA Culture (Admit) - Final MRSA NOT DETECTED Most Recent Lab Values WBC 11.0 K/uL (4.8-10.8) H 11/06/17 07:02 RBC 3.83 Mil/uL (4.40-5.90) L 11/06/17 07:02 Hgb 11.6 g/dL (12.0-18.0) L 11/06/17 07:02 Hct 32.5 % (35.0-51.0) L 11/06/17 07:02 MCV 84.7 fL (80.0-94.0) 11/06/17 07:02 MCH 30.2 pg (27.0-31.0) 11/06/17 07:02 MCHC 35.6 g/dL (33.0-37.0) 11/06/17 07:02 RDW 14.7 % (11.5-14.5) H 11/06/17 07:02 Plt Count 819 K/uL (130-400) H 11/06/17 07:02 MPV 6.0 fL (7.2-11.7) L 11/06/17 07:02 Neut % (Auto) 63.8 % (50.0-75.0) 11/06/17 07:02 Lymph % (Auto) 25.7 % (20.0-40.0) 11/06/17 07:02 [place] % (Auto) 7.8 % (0.0-10.0) 11/06/17 07:02 Eos % (Auto) 2.0 % (0.0-4.0) 11/06/17 07:02 Baso % (Auto) 0.7 % (0.0-2.0) 11/06/17 07:02 Neut # (Auto) 7.0 K/uL (1.8-7.0) 11/06/17 07:02 Lymph # (Auto) 2.8 K/uL (1.0-4.3) 11/06/17 07:02 [place] # (Auto) 0.9 K/uL (0.0-0.8) H 11/06/17 07:02 Eos # (Auto) 0.2 K/uL (0.0-0.7) 11/06/17 07:02 Baso # (Auto) 0.1 K/uL (0.0-0.2) 11/06/17 07:02 Differential Comment 11/06/17 07:02 PT 12.1 SECONDS (9.7-12.2) 10/31/17 01:55 INR 1.1 10/31/17 01:55 APTT 35 SECONDS (21-34) H 10/31/17 01:55 Puncture Site Rr 11/01/17 04:56 pCO2 35 mm/Hg (35-45) 11/01/17 04:56 pO2 147 mm/Hg (80-100) H 11/01/17 04:56 HCO3 28.1 mmol/L (21-28) H 11/01/17 04:56 ABG pH 7.50 (7.35-7.45) H 11/01/17 04:56 ABG Total CO2 28.4 mmol/L (22-28) H 11/01/17 04:56 ABG O2 Saturation 98.9 % (95-98) H 11/01/17 04:56 ABG Base Excess 4.0 mmol/L (-2.0-3.0) H 11/01/17 04:56 ABG Hemoglobin 9.7 g/dL (11.7-17.4) L 11/01/17 04:56 ABG Carboxyhemoglobin 1.6 % (0.5-1.5) H 11/01/17 04:56 POC ABG HHb (Measured) 1.1 % (0.0-5.0) 11/01/17 04:56 ABG Methemoglobin 1.0 % (0.0-3.0) 11/01/17 04:56 Jean-Claude Test Pos 11/01/17 04:56 A-a O2 Difference 94.0 mm/Hg 11/01/17 04:56 Respiratory Index 0.6 11/01/17 04:56 Hgb O2 Saturation 96.4 % (95.0-98.0) 11/01/17 04:56 Vent Mode Prvc 11/01/17 04:56 Mechanical Rate 20 11/01/17 04:56 FiO2 40.0 % 11/01/17 04:56 Tidal Volume 500 11/01/17 04:56 PEEP 5 11/01/17 04:56 Sodium 136 mmol/L (132-148) 11/06/17 07:02 Potassium 3.4 mmol/L (3.6-5.2) L 11/06/17 07:02 Chloride 98 mmol/L (98-107) 11/06/17 07:02 Carbon Dioxide 29 mmol/L (22-30) 11/06/17 07:02 Anion Gap 12 (10-20) 11/06/17 07:02 BUN 6 mg/dL (9-20) L 11/06/17 07:02 Creatinine 0.7 mg/dL (0.8-1.5) L 11/06/17 07:02 Est GFR ( Amer) > 60 11/06/17 07:02 Est GFR (Non-Af Amer) > 60 11/06/17 07:02 POC Glucose (mg/dL) 141 mg/dL (65-110) H 11/06/17 06:41 Random Glucose 145 mg/dL (75-110) H 11/06/17 07:02 Hemoglobin A1c 6.6 % (4.2-6.5) H 11/04/17 06:30 Lactic Acid 1.0 mmol/L (0.7-2.1) 11/01/17 03:39 Calcium 8.6 mg/dl (8.6-10.4) 11/06/17 07:02 Phosphorus 3.9 mg/dL (2.5-4.5) 11/06/17 07:02 Magnesium 1.9 mg/dL (1.6-2.3) 11/06/17 07:02 Total Bilirubin 0.1 mg/dL (0.2-1.3) L 11/06/17 07:02 AST 36 U/L (17-59) 11/06/17 07:02 ALT 58 U/L (21-72) 11/06/17 07:02 Alkaline Phosphatase 74 U/L (38-126) 11/06/17 07:02 Total Protein 6.4 g/dL (6.3-8.3) 11/06/17 07:02 Albumin 3.3 g/dL (3.5-5.0) L 11/06/17 07:02 Globulin 3.1 gm/dL (2.2-3.9) 11/06/17 07:02 Albumin/Globulin Ratio 1.1 (1.0-2.1) 11/06/17 07:02 Triglycerides 149 mg/dL (0-149) 11/01/17 03:39 Cholesterol 96 mg/dL (0-199) 11/01/17 03:39 LDL Cholesterol Direct 53 mg/dL (0-129) 11/01/17 03:39 HDL Cholesterol 19 mg/dL (30-70) L 11/01/17 03:39 Lipase 33 U/L (23-300) 10/31/17 01:55 Free T4 1.29 ng/dL (0.78-2.19) 11/01/17 03:39 TSH 3rd Generation 1.34 mIU/L (0.46-4.68) 11/01/17 03:39 Urine Color Straw (YELLOW) 11/05/17 12:26 Urine Clarity Clear (Clear) 11/05/17 12:26 Urine pH 6.0 (5.0-8.0) 11/05/17 12:26 Ur Specific [place] 1.012 (1.003-1.030) 11/05/17 12:26 Urine Protein Negative mg/dL (NEGATIVE) 11/05/17 12:26 Urine Glucose (UA) 2+ mg/dL (Normal) H 11/05/17 12:26 Urine Ketones Negative mg/dL (NEGATIVE) 11/05/17 12:26 Urine Blood Negative (NEGATIVE) 11/05/17 12:26 Urine Nitrate Negative (NEGATIVE) 11/05/17 12:26 Urine Bilirubin Negative (NEGATIVE) 11/05/17 12:26 Urine Urobilinogen Normal mg/dL (0.2-1.0) 11/05/17 12:26 Ur Leukocyte Esterase Neg Elina/uL (Negative) 11/05/17 12:26 Urine WBC (Auto) < 1 /hpf (0-5) 11/05/17 12:26 Vancomycin Trough 8.7 ug/mL (5.0-10.0) 11/05/17 09:12 Blood Type A POSITIVE 10/31/17 01:55 Blood Type Confirm A POSITIVE 10/31/17 01:55 Antibody Screen Negative 10/31/17 01:55 Attending/Attestation - Attestation I have personally seen and examined this patient.: Yes I have fully participated in the care of the patient.: Yes I have reviewed all pertinent clinical information, including history, physical exam and plan: Yes Notes (Text): 11/06/17 18:04 Patient was seen and examined at 1:00 PM Spoke with GI Fellow and was informed that Pathology from EGD #2 did not show any malignant cells but showed evidence of ulcer and patient is to follow up with him on 12/17/17 through the GI Clinic. Please note the correction in the discharge medication above: Probiotic is NOT to be taken within 2 hours of antibiotic dose and for 34 days Also note addition to the discharge instructions above: Patient is to make sure that he applies for [employer] through [employer] [facility] located on Floor B of [facility] early next week. Both of the above corrections were made in the Discharge Orders and I also spoke with the patient's Son via phone and explained every discharge instruction to him which he was writing down. Costa Travis D.O.
[2017-11-06 17:37] VITALS: PULSE 91; TEMP 97.8
[2017-11-06 17:51] VITALS: BP 119/78
== END 2017-11-06 18:11 | disposition home or self-care (01) | DRG 377 ==
LOC: C.ER 00:46 → C.9E 03:34 → C.9I 05:52 → C.6T 11-04 23:40
PROVIDERS: ADMIT Hospitalist; ATTEND Hospitalist
PROC: 5A1935Z Respiratory Ventilation, Less than 24 Consecutive Hours (ICD-10-PCS; 2017-10-31)
PROC: 3E0G8GC Introduction of Other Therapeutic Substance into Upper GI, Via Natural or Artificial Opening Endoscopic (ICD-10-PCS; 2017-10-31)
PROC: 30233N1 Transfusion of Nonautologous Red Blood Cells into Peripheral Vein, Percutaneous Approach (ICD-10-PCS; 2017-10-31)
PROC: 0J983ZZ Drainage of Abdomen Subcutaneous Tissue and Fascia, Percutaneous Approach (ICD-10-PCS; 2017-10-31)
PROC: 0BH17EZ Insertion of Endotracheal Airway into Trachea, Via Natural or Artificial Opening (ICD-10-PCS; 2017-10-31)
PROC: 04HK33Z Insertion of Infusion Device into Right Femoral Artery, Percutaneous Approach (ICD-10-PCS; 2017-10-31)
PROC: 0W3P8ZZ Control Bleeding in Gastrointestinal Tract, Via Natural or Artificial Opening Endoscopic (ICD-10-PCS; principal; 2017-10-31 13:40)
PROC: 0DB98ZX Excision of Duodenum, Via Natural or Artificial Opening Endoscopic, Diagnostic (ICD-10-PCS; 2017-11-03)
PROC: 0DB78ZX Excision of Stomach, Pylorus, Via Natural or Artificial Opening Endoscopic, Diagnostic (ICD-10-PCS; 2017-11-03)
PROC: 0DB68ZX Excision of Stomach, Via Natural or Artificial Opening Endoscopic, Diagnostic (ICD-10-PCS; 2017-11-03)
DX: K26.0 Acute duodenal ulcer with hemorrhage (principal); J96.91 Respiratory failure, unspecified with hypoxia; L02.211 Cutaneous abscess of abdominal wall; D62 Acute posthemorrhagic anemia; E87.6 Hypokalemia; L03.311 Cellulitis of abdominal wall; E11.9 Type 2 diabetes mellitus without complications; B95.62 Methicillin resistant Staphylococcus aureus infection as the cause of diseases classified elsewhere; K44.9 Diaphragmatic hernia without obstruction or gangrene; K29.80 Duodenitis without bleeding; W57.XXXA Bitten or stung by nonvenomous insect and other nonvenomous arthropods, initial encounter; M48.54XS Collapsed vertebra, not elsewhere classified, thoracic region, sequela of fracture; G89.29 Other chronic pain; F17.210 Nicotine dependence, cigarettes, uncomplicated